=== PATIENT | female | born 1950 | race Caucasian/White ===

== ENCOUNTER → 2017-02-10 | Outpatient (CLI) | payer MEDICARE, OTHER ==
--- NOTE | 2017-02-10 16:59 | BD ---
EXAMINATION TYPE: MG DEXA axial skeleton. DATE OF EXAM: 02/10/2017 11:12 AM COMPARISON: NONE CLINICAL HISTORY: 66-year-old female C50.411 BREAST CANCER, M85.8 OSTEOPENIA Height: 63.5 Weight: 154 FRAX RISK QUESTIONS: Alcohol (3 or more units per day): NO Family History (Parent hip fracture): YES Glucocorticoids (More than 3mos): NO (Ex: prednisone, prednisolone, methylprednisolone, dexamethasone, and hydrocortisone). History of Fracture in Adulthood: NO Secondary Osteoporosis: YES 1. Type 1 Diabetes: YES 2. Hyperthyroidism: NO 3. Menopause before 45: NO 4. Malnutrition: NO 5. Chronic liver disease: NO Rheumatoid Arthritis: NO Current Tobacco Use: NO RISK FACTORS HISTORY OF: Family History of Osteoporosis: YES, HER AUNT, GRANDMOTHER WITH BROKEN HIP Active: YES Diet low in dairy products/other sources of calcium: YES, LACTOSE INTOLERANT Postmenopausal woman: OVARIAN CA AT 55 YRS OLD, TOTAL HYST Lost more than 2 inches in height since high school: NOT QUITE Adrenal Insufficiency: NO MEDICATIONS: Additional Medications: FEMARA, DIABETIC DIET CONTROLLED, CHEMO TREATMENT X2, VIT D3, RANTIDINE FOR R EFLUX Additional History: HX OF BREAST CANCER, OVARIAN CANCER, HEP A A CHILD, HX OF OSTEOMYELITIS, + FOR THE BRCA GENE EXAM MEASUREMENTS: Bone mineral densitometry was performed using the [employer] System. Bone mineral density as measured about the Lumbar spine is: ----- L1-L4(G/cm2): 1.242 T Score Values are as follows: ----- L1: 0.1 ----- L2: -0.3 ----- L3: 1.7 ----- L4: 0.4 ----- L1-L4: 0.5 Bone mineral density THIS IS HER FIRST BONE DENSITY STUDY AT [facility] Bone mineral density about the R hip (g/cm2): 0.894 Bone mineral density about the L hip (g/cm2): 0.876 T Score values are as follows: -----R Neck: -1.6 -----L Neck: -1.6 -----R Total: -0.9 -----L Total: -1.0 Bone mineral density FIRST BONE DENSITY STUDY AT [facility] %'S: 17.8% CHANCE OF A MAJOR OSTEOPOROTIC FX AND A 1.2% CHANCE OF A HIP FX.....PROBABILITY OF FX IN 10 YRS TIME IMPRESSION: Osteopenia as indicated by T score values in both hips. There is slightly increased risk of fracture and the patient may be considered for treatment. Re-Screen 2-5 years. NOTE: T-SCORE=SD OF THE YOUNG ADULT MEAN.
== END | disposition home or self-care (01) ==
LOC: RADBDWWP 10:23
PROVIDERS: ATTEND Internal Medicine Hematology & Oncology
DX: M85.852 Other specified disorders of bone density and structure, left thigh (principal); M85.851 Other specified disorders of bone density and structure, right thigh; Z79.890 Hormone replacement therapy
CPT/HCPCS: 77080

== ENCOUNTER 2017-05-09 12:27 | Emergency (ER) | payer MEDICARE, OTHER ==
[2017-05-09 12:33] VITALS: RESP 18
[2017-05-09] MEDS ORDERED: LORazepam 1 MG TAB PO STA (13:50)
[2017-05-09 14:04] LABS: Basophils % (A) 0 %; CH 32.7; CHCM 34.9; Eosinophils # (A) 0.1 k/uL (0-0.7); Eosinophils % (A) 1 %; HCT 45.6 % (34.0-46.0); HDW 2.49; Luc # (Auto) 0.11; Luc % (Auto) 1; Lymphocytes # (A) 1.3 k/uL (1.0-4.8); Lymphocytes % (A) 15 %; MCHC 32.9 g/dL (31.0-37.0); MCV 94.2 fL (80.0-100.0); Mean Platelet Volume 7.2; Monocytes # (A) 0.3 k/uL (0-1.0); Monocytes % (A) 4 %; Neutrophils # (A) 6.4 k/uL (1.3-7.7); Neutrophils % (A) 78 %; RBC 4.84 m/uL (3.80-5.40); WBC 8.2 k/uL (3.8-10.6); WBC (Perox) 7.79
--- NOTE | 2017-05-09 14:04 | ED ---
General Adult HPI - General Chief complaint: Recheck/Abnormal Lab/Rx Stated complaint: High Blood Pressure Time Seen by Provider: 05/09/17 12:56 Source: patient, RN notes reviewed Mode of arrival: ambulatory Limitations: no limitations - History of Present Illness Initial comments: 66-year-old female presents emergency Department with chief complaint of hypertension. Patient states that last few days that she just fell off and states that she was at physical therapy and he checks her blood pressure. She states it was elevated 180/100. Patient call her PCP and told her. Patient states she was advised to recheck her blood pressure and keep a log and she called back today and which was still elevated so she was sent emergency department. She denies any headache, dizziness, focal weakness, chest pain, shortness breath, nausea vomiting. She states she was washing her car the other day and states that she her face was red and flushed so she figured it was her blood pressure. Patient states that she was outside wash her car ago for a while. Patient states that she's been blood pressure medication but states she was taken off because it was causing her blood pressure me to open. Patient states he has not had a recent visit that they told her that she needs to be on blood pressure medication though she states that she does not exactly know what her blood pressure was at these visits. Patient states that she has a history of ovarian and breast cancer. Patient denies any fever, chills nausea vomiting. - Related Data Home Medications Medication Instructions Recorded Confirmed Baclofen [Lioresal] 10 mg PO BID PRN 05/09/17 05/09/17 Cholecalciferol [Vitamin D3] 1,000 unit PO BID 05/09/17 05/09/17 Ibuprofen [Motrin] 800 mg PO TID PRN 05/09/17 05/09/17 Letrozole [Femara] 2.5 mg PO DAILY 05/09/17 05/09/17 Ranitidine HCl [Zantac] 300 mg PO HS 05/09/17 05/09/17 Previous Rx's Medication Instructions Recorded Lisinopril [Zestril] 10 mg PO DAILY #14 tab 05/09/17 Allergies Allergy/AdvReac Type Severity Reaction Status Date / Time duloxetine [From Cymbalta] Allergy Unknown Verified 05/09/17 13:02 pregabalin [From Lyrica] Allergy Unknown Verified 05/09/17 13:01 orange juice AdvReac Nausea & Verified 05/09/17 13:02 Vomiting & Diarrhea Whole Milk AdvReac Nausea & Uncoded 05/09/17 13:02 Vomiting & Diarrhea Review of Systems ROS Statement: Those systems with pertinent positive or pertinent negative responses have been documented in the HPI. ROS Other: All systems not noted in ROS Statement are negative. Past Medical History Past Medical History: Cancer, Hypertension Additional Past Medical History / Comment(s): hepatitis History of Any Multi-Drug Resistant Organisms: None Reported Past Surgical History: Tonsillectomy Additional Past Surgical History / Comment(s): ovarian cancer, breast cancer Past Psychological History: No Psychological Hx Reported Smoking Status: Never smoker Past Alcohol Use History: None Reported Past Drug Use History: None Reported General Exam Limitations: no limitations General appearance: alert, in no apparent distress, anxious Head exam: Present: atraumatic, normocephalic, normal inspection Eye exam: Present: normal appearance, PERRL, EOMI. Absent: scleral icterus, conjunctival injection, periorbital swelling ENT exam: Present: normal exam, normal oropharynx, mucous membranes moist Neck exam: Present: normal inspection, full ROM. Absent: tenderness, meningismus, lymphadenopathy Respiratory exam: Present: normal lung sounds bilaterally. Absent: respiratory distress, wheezes, rales, rhonchi, stridor Cardiovascular Exam: Present: normal rhythm, tachycardia, normal heart sounds. Absent: systolic murmur, diastolic murmur, rubs, gallop, clicks Neurological exam: Present: alert, oriented X3, CN II-XII intact Psychiatric exam: Present: anxious Skin exam: Present: warm, dry, intact, normal color. Absent: rash Course Vital Signs 05/09/17 05/09/17 05/09/17 12:30 13:50 14:32 Temperature 98.9 F Pulse Rate 122 H 98 98 Respiratory 18 18 18 Rate Blood Pressure 199/101 202/87 169/81 O2 Sat by Pulse 99 96 98 Oximetry EKG Findings - EKG Comments: EKG Findings:: EKG performed at 13:30 normal sinus rhythm with a rate of 97 WI interval 162 QRS duration 86 QT/QTC 360/457 Medical Decision Making - Medical Decision Making 66-year-old female presented for hypertension. Patient is very anxious patient. Patient's lab work and EKG within normal limits. Patient was given 0.5 mg of Ativan which improved her blood pressure. Patient still has some underlying hypertension which she'll be started on lisinopril 10 mg. Return parameters were discussed. She is advised to follow with PCP in 2 days and to check her blood pressure at home. - Lab Data Result diagrams: 05/09/17 13:45 05/09/17 13:45 Lab Results 05/09/17 05/09/17 05/09/17 Range/Units 13:45 13:45 13:45 WBC 8.2 (3.8-10.6) k/uL RBC 4.84 (3.80-5.40) m/uL Hgb 15.0 (11.4-16.0) gm/dL Hct 45.6 (34.0-46.0) % MCV 94.2 (80.0-100.0) fL MCH 31.0 (25.0-35.0) pg MCHC 32.9 (31.0-37.0) g/dL RDW 13.0 (11.5-15.5) % Plt Count 288 (150-450) k/uL Neutrophils % 78 % Lymphocytes % 15 % Monocytes % 4 % Eosinophils % 1 % Basophils % 0 % Neutrophils # 6.4 (1.3-7.7) k/uL Lymphocytes # 1.3 (1.0-4.8) k/uL Monocytes # 0.3 (0-1.0) k/uL Eosinophils # 0.1 (0-0.7) k/uL Basophils # 0.0 (0-0.2) k/uL Sodium 144 (137-145) mmol/L Potassium 4.1 (3.5-5.1) mmol/L Chloride 105 (98-107) mmol/L Carbon Dioxide 27 (22-30) mmol/L Anion Gap 12 mmol/L BUN 15 (7-17) mg/dL Creatinine 0.57 (0.52-1.04) mg/dL Est GFR (MDRD) Af Amer >60 (>60 ml/min/1.73 sqM) Est GFR (MDRD) Non-Af >60 (>60 ml/min/1.73 sqM) Glucose 96 (74-99) mg/dL Calcium 10.0 (8.4-10.2) mg/dL Total Bilirubin 0.7 (0.2-1.3) mg/dL AST 30 (14-36) U/L ALT 32 (9-52) U/L Alkaline Phosphatase 100 (38-126) U/L Troponin I <0.012 (0.000-0.034) ng/mL Total Protein 7.9 (6.3-8.2) g/dL Albumin 4.8 (3.5-5.0) g/dL Disposition Clinical Impression: Hypertension Disposition: HOME SELF-CARE Condition: Stable Instructions: Hypertension (ED) Additional Instructions: Please return to the Emergency Department if symptoms worsen or any other concerns. Prescriptions: Lisinopril [Zestril] 10 mg PO DAILY #14 tab Referrals: Ayaka Friedman MD [Primary Care Provider] - 1-2 days Time of Disposition: 15:18
[2017-05-09 14:14] LABS: ALT 32 U/L (9-52); AST 30 U/L (14-36); Alkaline Phosphatase 100 U/L (38-126); Anion Gap 12 mmol/L; Blood Urea Nitrogen 15 mg/dL (7-17); Carbon Dioxide 27 mmol/L (22-30); Chloride 105 mmol/L (98-107); Glucose 96 mg/dL (74-99); Non-African American GFR(MDRD) >60 (>60 ml/min/1.73 sqM); Potassium 4.1 mmol/L (3.5-5.1); Sodium 144 mmol/L (137-145); Total Bilirubin 0.7 mg/dL (0.2-1.3); Total Protein 7.9 g/dL (6.3-8.2)
[2017-05-09 15:49] VITALS: BP 145/71; PULSE 94; TEMP 98.7
== END 2017-05-09 15:49 | disposition home or self-care (01) ==
LOC: EC 12:27
DX: I10 Essential (primary) hypertension (principal); Z85.43 Personal history of malignant neoplasm of ovary; Z85.3 Personal history of malignant neoplasm of breast; Z79.899 Other long term (current) drug therapy; Z91.018 Allergy to other foods; Z88.8 Allergy status to other drugs, medicaments and biological substances
CPT/HCPCS: 36415; 80053; 84484; 85025; 93005; 99283

== ENCOUNTER 2017-11-10 08:49 | Day surgery (SDC) | payer MEDICARE, OTHER ==
[2017-11-08 11:32] VITALS: BMI 26.3
[~2017-11-10 08:49] MED LIST: LACTATED RINGERS 1,000 ML IV SCH
[2017-11-10 09:23] VITALS: RESP 16; TEMP 97.6
[2017-11-10 09:34] LABS: Glucose,Whole Blood 93 mg/dL (75-99)
[2017-11-10] MEDS ORDERED: PROPOFOL 10 MG/ML 20 ML VIAL IV ONE (09:53)
--- NOTE | 2017-11-10 09:57 | P.GSHP ---
History of Present Illness H&P Date: 11/10/17 Chief Complaint: Colon cancer screening Patient here today for screening colonoscopy. Last colonoscopy 12 years ago. No bowel related complaints. No family history of colon cancer. Past Medical History Past Medical History: Cancer, Diabetes Mellitus, GERD/Reflux, Hypertension, Liver Disease Additional Past Medical History / Comment(s): past hx. hepatitis A as a baby, hx. right breast cancer 2009, ovarian cancer 2006-tx. w/chemo for both, diet controlled diabetic, peripheral neuropathy History of Any Multi-Drug Resistant Organisms: None Reported Past Surgical History: Breast Surgery, Hysterectomy, Tonsillectomy Additional Past Surgical History / Comment(s): americo. mastectomy, partial omentectomy, mediport insertion Past Anesthesia/Blood Transfusion Reactions: No Reported Reaction Smoking Status: Never smoker - Past Family History Sister(s) Family Medical History: Cancer Additional Family Medical History / Comment(s): breast Mother Family Medical History: Deep Vein Thrombosis (DVT) Medications and Allergies Home Medications Medication Instructions Recorded Confirmed Type Baclofen [Lioresal] 10 mg PO BID PRN 05/09/17 11/08/17 History Cholecalciferol [Vitamin D3] 1,000 unit PO BID 05/09/17 11/08/17 History Ibuprofen [Motrin] 800 mg PO TID PRN 05/09/17 11/08/17 History Letrozole [Femara] 2.5 mg PO DAILY 05/09/17 11/08/17 History Ranitidine HCl [Zantac] 300 mg PO HS 05/09/17 11/08/17 History Lisinopril [Zestril] 10 mg PO HS 11/08/17 11/08/17 History Allergies Allergy/AdvReac Type Severity Reaction Status Date / Time duloxetine [From Cymbalta] Allergy Unknown Verified 11/10/17 09:28 pregabalin [From Lyrica] Allergy Unknown Verified 11/10/17 09:28 orange juice AdvReac Nausea & Verified 11/10/17 09:28 Vomiting & Diarrhea Whole Milk AdvReac Nausea & Uncoded 11/10/17 09:28 Vomiting & Diarrhea Surgical - Exam Vital Signs Temp Pulse Resp BP Pulse Ox 97.6 F 110 H 16 171/81 98 11/10/17 09:21 11/10/17 09:21 11/10/17 09:21 11/10/17 09:21 11/10/17 09:21 Physical exam: General: Well-developed, well-nourished HEENT: Normocephalic, sclerae nonicteric Abdomen: Nontender, nondistended Extremities: No edema Neuro: Alert and oriented Assessment and Plan (1) Colon cancer screening Narrative/Plan: Will proceed with colonoscopy at this time. Current Visit: Yes Status: Acute Code(s): Z12.11 - ENCOUNTER FOR SCREENING FOR MALIGNANT NEOPLASM OF COLON SNOMED Code(s): 694219768
--- NOTE | 2017-11-10 10:08 | P.PCN ---
Date of Procedure: 11/10/17 Procedure(s) Performed: PREOPERATIVE DIAGNOSIS: Colon cancer screening POSTOPERATIVE DIAGNOSIS: Normal exam PROCEDURE: Colonoscopy ANESTHESIA: MAC SURGEON: Azael Daly M.D. SPECIMENS: None ENDOSCOPIC PROCEDURE: The patient was placed on the endoscopy table in the left decubitus position. The Olympus colonoscope was inserted into the anus and passed under direct visualization to the base of the cecum. The appendiceal orifice was visualized. From that point the scope was slowly withdrawn inspecting all surfaces carefully. There were no neoplastic inflammatory or polypoid lesions throughout the cecum, ascending, transverse, descending, sigmoid and rectum. There was no diverticulosis noted. Digital rectal examination was normal. The patient was taken to the recovery room in stable condition per anesthesia guidelines. RECOMMENDATIONS: Increase fiber. Follow-up colonoscopy 10 years.
[2017-11-10 10:32] VITALS: BP 119/67; PULSE 88
--- NOTE | 2017-11-15 17:22 | CDI ---
Outpatient Documentation Clarification Form Date: 11/15/17 CDS/Culinary Arts Teacher Name: Denise Simmons Phone: If any questions, call Katarina Whitman Domestic Cleaner at [phone] Patient Name: Kim Bella Admit Date: 11/10/17 Discharge Date: 11/10/17 ATTENTION: The [facility] Coding Staff appreciate your assistance in clarifying documentation. Please respond to the clarification below the line at the bottom and electronically sign. The [facility] Coding staff will review the response and follow-up if needed. Please note: Queries are made part of the Legal Health Record. If you have any questions, please contact the Domestic Cleaner. Dear Dr. Daly Does the patient currently have chemotherapy induced neuropathy or is it only a history of? Thank you for your kind consideration. I have no knowledge of this patient's neuropathy. Please defer to oncology ____ MTDD
--- NOTE | 2017-12-01 16:10 | CDI ---
Outpatient Documentation Clarification Form Date: 12/01/17 CDS/Clinical Sales Consultant Name: Denise Simmons Phone: If any questions, call Katarina Whitman Online Media Director at [phone] Patient Name: Kim Bella Admit Date: 11/10/17 Discharge Date: 11/10/17 ATTENTION: The [facility] Coding Staff appreciate your assistance in clarifying documentation. Please respond to the clarification below the line at the bottom and electronically sign. The [facility] Coding staff will review the response and follow-up if needed. Please note: Queries are made part of the Legal Health Record. If you have any questions, please contact the Online Media Director. Dear Dr. Daly Does the patient currently have chemotherapy induced neuropathy or is it only a history of? Thank you for your kind consideration. MTDD
--- NOTE | 2017-12-05 14:11 | CDI ---
Documentation Clarification OP Outpatient Documentation Clarification Form Date: 12/05/17 CDS/Inspector Quality Assurance Name: Denise Simmons Phone: If any questions, call Katarina Whitman Social Media Project Manager at [phone] Patient Name: Kim Bella Admit Date: 11/10/17 Discharge Date: 11/10/17 ATTENTION: The [facility] Coding Staff appreciate your assistance in clarifying documentation. Please respond to the clarification below the line at the bottom and electronically sign. The [facility] Coding staff will review the response and follow-up if needed. Please note: Queries are made part of the Legal Health Record. If you have any questions, please contact the Social Media Project Manager. Dear Dr. Daly Does the patient currently have chemotherapy induced neuropathy or is it only a history of? Thank you for your kind consideration. Do not know the answer that question. Please defer to medicine or oncology. MTDD
== END 2017-11-10 11:24 | disposition home or self-care (01) ==
LOC: ORWHC2ENDO 08:49
PROVIDERS: ATTEND Surgery
DX: Z12.11 Encounter for screening for malignant neoplasm of colon (principal); K21.9 Gastro-esophageal reflux disease without esophagitis; I10 Essential (primary) hypertension; E07.9 Disorder of thyroid, unspecified; E11.42 Type 2 diabetes mellitus with diabetic polyneuropathy; Z85.3 Personal history of malignant neoplasm of breast; Z85.43 Personal history of malignant neoplasm of ovary; Z92.21 Personal history of antineoplastic chemotherapy; Z90.13 Acquired absence of bilateral breasts and nipples; Z79.899 Other long term (current) drug therapy; Z88.8 Allergy status to other drugs, medicaments and biological substances
CPT/HCPCS: J2704; G0121

== ENCOUNTER → 2019-04-05 | Outpatient (CLI) | payer MEDICARE, OTHER ==
--- NOTE | 2019-04-05 14:30 | BD ---
EXAMINATION TYPE: Axial Bone Density DATE OF EXAM: 04/05/2019 COMPARISON: NONE CLINICAL HISTORY: Postmenopausal symptoms, postmenopausal female Height: 5 FT 3 IN Weight: 159 FRAX RISK QUESTIONS: RISK FACTORS HISTORY OF: Family History of Osteoporosis: YES Active: YES Postmenopausal woman: TOTAL HYST AGE 55 Lost more than 2 inches in height since high school: YES MEDICATIONS: Additional Medications: FEMARA, D3, IBUPROFEN, BLOOD PRESSURE MEDS, NEUOPATHY MEDS, RANTIDINE FOR REF LUX Additional History: BREAST CA 2009 CHEMO, OVARIAN CANCER AGE 55 CHEMO EXAM MEASUREMENTS: Bone mineral densitometry was performed using the [employer] System. Bone mineral density as measured about the Lumbar spine is: ----- L1-L4(G/cm2): 1.275 T Score Values are as follows: ----- L2: 0.2 ----- L3: 1.4 ----- L4: 1.3 ----- L1-L4: 0.8 Bone mineral density has: INCREASED 3.8 % since study of: 2016 Bone mineral density about the R hip (g/cm2): 0.804 Bone mineral density about the L hip (g/cm2): 0.769 T Score values are as follows: -----R Neck: -1.7 -----L Neck: -1.9 -----R Total: -0.9 -----L Total: -1.2 Bone mineral density has: DECREASED -1.4 % since study of: 2016 IMPRESSION: Osteopenia (T Score between -2.5 and -1). There is slightly increased risk of fracture and the patient may be considered for treatment. Re-Screen 2-5 years. NOTE: T-SCORE=SD OF THE YOUNG ADULT MEAN.
== END ==
LOC: RADBDWWP 12:01
PROVIDERS: ATTEND Internal Medicine Hematology & Oncology
DX: M85.80 Other specified disorders of bone density and structure, unspecified site (principal); C50.411 Malignant neoplasm of upper-outer quadrant of right female breast; N95.1 Menopausal and female climacteric states; Z79.890 Hormone replacement therapy
CPT/HCPCS: 77080

== ENCOUNTER 2019-07-18 20:34 | Observation (INO) | payer MEDICARE, OTHER ==
--- NOTE | 2019-07-18 21:33 | ED ---
General Adult HPI - General Chief complaint: Recheck/Abnormal Lab/Rx Stated complaint: Tightness in throat Time Seen by Provider: 07/18/19 21:08 Source: patient Mode of arrival: EMS Limitations: no limitations - History of Present Illness Initial comments: Kim is a 68-year-old female who presents to the emergency department today as a transfer from an outside facility for evaluation of a possible TIA. 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 She reports that she was told that she looked sweaty and pale she felt that her throat was tightening and she was having trouble swallowing. She was taken to the nursing office in the transferred her to the hospital where she was evaluated for a TIA. Patient reports upon arrival possible she is hypertensive but had no other symptoms. Her head CT CTA chest x-ray, EKG and labs were unremarkable. However given the patient's symptoms and age decision was made to transfer her to our facility for further evaluation by neurology. Upon arrival to our hospital patient has no complaints. - Related Data Home Medications Medication Instructions Recorded Confirmed Baclofen [Lioresal] 10 mg PO BID 05/09/17 07/18/19 Cholecalciferol [Vitamin D3] 1,000 unit PO BID 05/09/17 07/18/19 Ibuprofen [Motrin] 800 mg PO BID 05/09/17 07/18/19 Letrozole [Femara] 2.5 mg PO HS 05/09/17 07/18/19 Ranitidine HCl [Zantac] 300 mg PO HS 05/09/17 07/18/19 Lisinopril [Zestril] 10 mg PO HS 11/08/17 07/18/19 Allergies Allergy/AdvReac Type Severity Reaction Status Date / Time duloxetine [From Cymbalta] Allergy Unknown Verified 07/18/19 21:14 pregabalin [From Lyrica] Allergy Unknown Verified 07/18/19 21:14 orange juice AdvReac Nausea & Verified 07/18/19 21:14 Vomiting & Diarrhea Whole Milk AdvReac Nausea & Uncoded 07/18/19 21:14 Vomiting & Diarrhea Review of Systems ROS Statement: Those systems with pertinent positive or pertinent negative responses have been documented in the HPI. ROS Other: All systems not noted in ROS Statement are negative. Past Medical History Past Medical History: Cancer, Diabetes Mellitus, GERD/Reflux, Hypertension, Liver Disease Additional Past Medical History / Comment(s): past hx. hepatitis A as a baby, hx. right breast cancer 2010, ovarian cancer 2006-tx. w/chemo for both, diet controlled diabetic, peripheral neuropathy History of Any Multi-Drug Resistant Organisms: None Reported Past Surgical History: Breast Surgery, Hysterectomy, Tonsillectomy Additional Past Surgical History / Comment(s): americo. mastectomy, partial omentectomy, mediport insertion Past Anesthesia/Blood Transfusion Reactions: No Reported Reaction Past Psychological History: No Psychological Hx Reported Smoking Status: Never smoker Past Alcohol Use History: None Reported Past Drug Use History: None Reported - Past Family History Sister(s) Family Medical History: Cancer Additional Family Medical History / Comment(s): breast Mother Family Medical History: Deep Vein Thrombosis (DVT) General Exam - General Exam Comments Initial Comments: Physical Exam GENERAL: Patient is well-developed and well-nourished. Patient is nontoxic and well- hydrated and is in no distress. HENT: Normocephalic, Atraumatic. EYES: PERRL, EOMI PULMONARY: Unlabored respirations. No audible rales rhonchi or wheezing was noted. CARDIOVASCULAR: There is a regular rate and rhythm without any murmurs gallops or rubs. ABDOMEN: Soft and nontender with normal bowel sounds. SKIN: Skin is clear with no lesions or rashes and otherwise unremarkable. : Deferred NEUROLOGIC: Patient is alert and oriented x3. Cranial nerves II through XII are grossly intact Moving all extremities spontaneously MUSCULOSKELETAL: Normal extremities with adequate strength and full range of motion. No lower extremity swelling or edema. No calf tenderness. PSYCHIATRIC: Normal psychiatric evaluation. Limitations: no limitations Course Vital Signs 07/18/19 20:36 Temperature 98.5 F Pulse Rate 91 Respiratory 18 Rate Blood Pressure 158/89 O2 Sat by Pulse 96 Oximetry Medical Decision Making - Medical Decision Making Patient was seen and evaluated history is obtained from patient and review of medical records from outside facility, upon arrival patient is completely asymptomatic hemodynamically stable with no complaints. Patient expresses concern that she is not a candidate for inpatient MRI as she is too claustrophobic to complete an MRI, therefore she would prefer open MRI which she can get her outpatient neurology office. I did offer the patient discharged from ER in outpatient follow-up however she preferred to be observed here evaluated by neurology. This plan was discussed with the admitting physician Dr. Nelson who agrees. Disposition Clinical Impression: TIA (transient ischemic attack) Disposition: ADMITTED IP TO THIS HOSP Condition: Stable Is patient prescribed a controlled substance at d/c from ED?: No Referrals: Ayaka Friedman MD [Primary Care Provider] - 1-2 days
[2019-07-19 01:26] LABS: Glucose,Whole Blood 98 mg/dL (75-99)
[2019-07-19 05:56] VITALS: RESP 16
[2019-07-19 06:17] LABS: Glucose,Whole Blood 94 mg/dL (75-99)
[2019-07-19] MEDS: INSULIN ASPART (NovoLOG) 100 UNIT/ML VIAL SQ SCH ×2 (06:23→12:27)
[2019-07-19 06:52] LABS: Cholesterol 167 mg/dL (<200); HDL Cholesterol 43 mg/dL (40-60); LDL Cholesterol,Calculated 101 mg/dL (0-99); Triglycerides 115 mg/dL (<150)
[2019-07-19] MEDS ORDERED: ACETAMINOPHEN TAB 325 MG TAB PO PRN (08:13)
[2019-07-19] MEDS ORDERED: ONDANSETRON 4 MG/2 ML VIAL IVP PRN (08:13)
[2019-07-19] MEDS ORDERED: CHOLECALCIFEROL 1,000 UNIT TAB PO SCH (09:00)
[2019-07-19] MEDS ORDERED: BACLOFEN 10 MG TAB PO SCH (09:00)
--- NOTE | 2019-07-19 10:00 | P.HPIM ---
History of Present Illness H&P Date: 07/19/19 This is a 68-year-old female patient of Dr. michael. Patient was transferred to [facility] from [facility] with concerns for possible TIA. 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 Patient also reports that she was hypertensive. Patient denies any confusion or trouble with gait. Patient denies any weakness to any extremities. Patient does have a past medical history of breast cancer, ovarian cancer, diabetes mellitus diet controlled, peripheral neuropathy, GERD, hypertension and liver disease. Patient had CT of the head completed at [facility] showing no acute intracranial hemorrhage or midline shift shift mild diffuse age-related cerebral atrophy and chronic small vessel ischemic changes. Chest x-ray also completed [facility] struggling chronic changes without acute pulmonary process EKG completed showing sinus rhythm. Neurology services have been consulted. Carotid and 2-D echo has been ordered. At this time patient is asymptomatic. Patient has clear speech. No weakness noted to extremities. Patient denies chest pain or shortness breath. Patient denies nausea vomiting or diarrhea. Patient denies any urinary burning or frequency. Review of Systems Please refer to HPI otherwise unremarkable Past Medical History Past Medical History: Cancer, Diabetes Mellitus, GERD/Reflux, Hypertension, Liver Disease Additional Past Medical History / Comment(s): past hx. hepatitis A as a baby, hx. right breast cancer 2009, ovarian cancer 2006-tx. w/chemo for both, diet controlled diabetic, peripheral neuropathy History of Any Multi-Drug Resistant Organisms: None Reported Past Surgical History: Breast Surgery, Hysterectomy, Tonsillectomy Additional Past Surgical History / Comment(s): americo. mastectomy, partial omentectomy, mediport insertion Past Anesthesia/Blood Transfusion Reactions: No Reported Reaction Past Psychological History: No Psychological Hx Reported Smoking Status: Never smoker Past Alcohol Use History: None Reported Past Drug Use History: None Reported - Past Family History Sister(s) Family Medical History: Cancer Additional Family Medical History / Comment(s): breast Mother Family Medical History: Deep Vein Thrombosis (DVT) Medications and Allergies Home Medications Medication Instructions Recorded Confirmed Type Baclofen [Lioresal] 10 mg PO BID 05/09/17 07/18/19 History Cholecalciferol [Vitamin D3] 1,000 unit PO BID 05/09/17 07/18/19 History Ibuprofen [Motrin] 800 mg PO BID 05/09/17 07/18/19 History Letrozole [Femara] 2.5 mg PO HS 05/09/17 07/18/19 History Ranitidine HCl [Zantac] 300 mg PO HS 05/09/17 07/18/19 History Lisinopril [Zestril] 10 mg PO HS 11/08/17 07/18/19 History Allergies Allergy/AdvReac Type Severity Reaction Status Date / Time duloxetine [From Cymbalta] Allergy Unknown Verified 07/19/19 01:42 pregabalin [From Lyrica] Allergy Unknown Verified 07/19/19 01:42 orange juice AdvReac Nausea & Verified 07/19/19 01:42 Vomiting & Diarrhea Whole Milk AdvReac Nausea & Uncoded 07/18/19 21:14 Vomiting & Diarrhea Physical Exam Vitals: Vital Signs Temp Pulse Pulse Resp BP BP Pulse Ox 07/19/19 04:00 98.2 F 87 16 151/76 98 07/19/19 01:05 97.3 F L 83 17 139/72 99 07/19/19 00:30 84 17 134/64 98 07/19/19 00:05 98.1 F 75 18 149/79 98 07/18/19 23:00 79 18 145/66 97 07/18/19 22:00 98.2 F 86 18 156/72 94 L 07/18/19 20:36 98.5 F 91 18 158/89 96 Intake and Output 07/18/19 07/19/19 07/19/19 22:59 06:59 14:59 Other: Voiding Method Toilet Weight 74.843 kg 74.6 kg Head normocephalic Neck supple Lungs clear to auscultation bilaterally no wheezing or crackles Heart regular rate and rhythm S1-S2, no rub or gallop Abdomen is soft nontender nondistended positive bowel sounds no hepatosplenomegaly Extremities no edema Neuro alert and orientated to 3 Results Labs: Abnormal Lab Results - Last 24 Hours (Table) 07/19/19 Range/Units 06:02 LDL Cholesterol, Calc 101 H (0-99) mg/dL Thrombosis Risk Factor Assmnt - Choose All That Apply Any of the Below Risk Factors Present?: Yes Each Factor Represents 1 point: Obesity (BMI >25) Other Risk Factors: Yes Each Risk Factor Represents 2 Points: Age 61-74 years Thrombosis Risk Factor Assessment Total Risk Factor Score: 3 Thrombosis Risk Factor Assessment Level: Moderate Risk Assessment and Plan Assessment: 1. Possible TIA. CT of head completed at [facility] showing no acute intracranial hemorrhage or midline shift mild diffuse age-related cerebral atrophy and chronic small vessel ischemic changes. Neurology services have been consulted. Carotid and 2-D Doppler has been completed. PT OT consult placed 2. History of breast cancer in 2009 with chemo and bilateral mastectomy 3. History of ovarian cancer in 2005 with chemo 4. Diabetes mellitus. Diet controlled 5. History of GERD 6. History of liver disease DVT prophylaxis heparin. GI prophylaxis Pepcid Time with Patient: Greater than 30 (Greater than 60% of the total time spent in counseling and coordination of care. I performed an examination of the patient and discussed their management with the Nurse Practitioner. I have reviewed the Nurse Practitioner's notes and agree with the documented findings and plan of care)
--- NOTE | 2019-07-19 10:26 | US ---
EXAMINATION TYPE: US carotid duplex BILAT DATE OF EXAM: 07/19/2019 COMPARISON: NONE CLINICAL HISTORY: TIA. EXAM MEASUREMENTS: RIGHT: Peak Systolic Velocity (PSV) cm/sec ----- Right CCA: 91.5 ----- Right ICA: 116.1 ----- Right ECA: 189.3 ICA/CCA ratio: 1.3 RIGHT: End Diastole cm/sec ----- Right CCA: 21.7 ----- Right ICA: 35.4 ----- Right ECA: 10.9 LEFT: Peak Systolic Velocity (PSV) cm/sec ----- Left CCA: 87.1 ----- Left ICA: 93.1 ----- Left ECA: 129.9 ICA/CCA ratio: 1.1 LEFT: End Diastole cm/sec ----- Left CCA: 25.7 ----- Left ICA: 33.5 ----- Left ECA: 13.6 VERTEBRALS (direction of flow): Right Vertebral: Antegrade Left Vertebral: Antegrade Rhythm: Normal Very small amount of calcified plaque bilateral bulbs. IMPRESSION: Mild degree of grayscale atheromatous plaquing with no sonographically evident hemodynam ically significant stenosis within either visualized carotid arterial system. Criteria for Assigning % of Stenosis / Diameter reduction (Estimation based on the indirect measurements of the internal carotid artery velocities (ICA PSV). 1. Normal (no stenosis)=ICA PSV < 125 cm/s: ratio < 2.0: ICA EDV<40 cm/s. 2. Less than 50% stenosis=ICA PSV < 125 cm/s: ratio < 2.0: ICA EDV<40 cm/s. 3. 50 to 69% stenosis=ICA PSV of 125 to 230 cm/s: ration 2.0 ? 4.0: ICA EDV 40-100 cm/s. 4. Greater than 70% stenosis to near occlusion= ICA PSV > 230 cm/s: ratio > 4.0: ICA EDV > 100 cm/s. 5. Near occlusion= ICA PSV velocities may be low or undetectable: variable ratio and ICA EDV. 6. Total occlusion=unable to detect flow.
[2019-07-19 10:45] LABS: ALT 35 U/L (9-52); AST 29 U/L (14-36); African American GFR (CKD) >90 (>60 ml/min/1.73 sqM); Albumin 3.9 g/dL (3.5-5.0); Alkaline Phosphatase 84 U/L (38-126); Anion Gap 9 mmol/L; Blood Urea Nitrogen 17 mg/dL (7-17); Calcium 9.6 mg/dL (8.4-10.2); Carbon Dioxide 24 mmol/L (22-30); Chloride 110 mmol/L (98-107); Glucose 95 mg/dL (74-99); Non-African American GFR(CKD) >90 (>60 ml/min/1.73 sqM); Potassium 3.8 mmol/L (3.5-5.1); Sodium 143 mmol/L (137-145); Total Bilirubin 0.3 mg/dL (0.2-1.3)
[2019-07-19 10:49] LABS: Basophils % (A) 1 %; Eosinophils # (A) 0.2 k/uL (0-0.7); Eosinophils % (A) 2 %; HGB 12.5 gm/dL (11.4-16.0); Lymphocytes # (A) 1.7 k/uL (1.0-4.8); Lymphocytes % (A) 22 %; MCHC 33.7 g/dL (31.0-37.0); MCV 94.9 fL (80.0-100.0); Mean Platelet Volume 7.1; Monocytes # (A) 0.5 k/uL (0-1.0); Monocytes % (A) 7 %; Neutrophils # (A) 5.3 k/uL (1.3-7.7); Neutrophils % (A) 67 %; Platelet Count 282 k/uL (150-450); WBC 7.8 k/uL (3.8-10.6)
--- NOTE | 2019-07-19 11:00 | ECHOF ---
Referral Reason:TIA MEASUREMENTS -------- HEIGHT: 160.0 cm WEIGHT: 74.4 kg BP: RVIDd: 2.7 cm (< 3.3) IVSd: 1.1 cm (0.6 - 1.1) LVIDd: 3.1 cm (3.9 - 5.3) LVPWd: 1.0 cm (0.6 - 1.1) IVSs: 1.8 cm LVIDs: 1.4 cm LVPWs: 1.5 cm LAESV Index (A-L): 16.95 ml/m Ao Diam: 2.6 cm (2.0 - 3.7) AV Cusp: 1.7 cm (1.5 - 2.6) LA Diam: 2.9 cm (2.7 - 3.8) MV EXCURSION: 10.087 mm (> 18.000) MV EF SLOPE: 85 mm/s (70 - 150) EPSS: 0.4 cm MV E Jose: 0.85 m/s MV DecT: 125 ms MV A Jose: 0.96 m/s MV E/A Ratio: 0.89 AR PHT: 354 ms RAP: 5.00 mmHg RVSP: 15.06 mmHg FINDINGS -------- Sinus rhythm. This was a technically good study. The left ventricular size is normal. Left ventricular wall thickness is normal. Overall left vent ricular systolic function is normal with, an EF between 55 - 60 %. The diastolic filling pattern is normal for the age of the patient 12.66. The right ventricle is normal in size. The left atrial size is normal. Normal LA size by volume 22+/-6 ml/m2. The right atrial size is normal. Interatrial and interventricular septum intact. The aortic valve is trileaflet and appears structurally normal. Trace amount of aortic regurgitatio n. The mitral valve is normal. The mitral valve leaflets are mildly thickened. Mild mitral regurgita tion is present. The tricuspid valve appears structurally normal. Mild tricuspid regurgitation present. Right vent ricular systolic pressure is normal at < 35 mmHg. There is no pulmonic regurgitation present. The aortic root size is normal. Normal inferior vena cava with normal inspiratory collapse consistent with estimated right atrial pre ssure of 5 mmHg. There is no pericardial effusion. CONCLUSIONS -------- 1. Sinus rhythm. 2. This was a technically good study. 3. The left ventricular size is normal. 4. Left ventricular wall thickness is normal. 5. Overall left ventricular systolic function is normal with, an EF between 55 - 60 %. 6. The diastolic filling pattern is normal for the age of the patient 12.66 7. The right ventricle is normal in size. 8. The left atrial size is normal. 9. Normal LA size by volume 22+/-6 ml/m2. 10. The right atrial size is normal. 11. Interatrial and interventricular septum intact. 12. The aortic valve is trileaflet and appears structurally normal. 13. Trace amount of aortic regurgitation. 14. The mitral valve is normal. 15. The mitral valve leaflets are mildly thickened. 16. Mild mitral regurgitation is present. 17. The tricuspid valve appears structurally normal. 18. Mild tricuspid regurgitation present. 19. Right ventricular systolic pressure is normal at < 35 mmHg. 20. There is no pulmonic regurgitation present. 21. The aortic root size is normal. 22. Normal inferior vena cava with normal inspiratory collapse consistent with estimated right atrial pressure of 5 mmHg. 23. There is no pericardial effusion. [employer] SAFETY INSPECTOR: Isadora Victoria RDCS
[2019-07-19 12:30] LABS: Glucose,Whole Blood 121 mg/dL (75-99)
--- NOTE | 2019-07-19 12:44 | P.CNNES ---
History of Present Illness Consult date: 07/19/19 Reason for Consult: Concern for TIA Chief complaint: Throat tightness History of Present Illness: HISTORY OF PRESENT ILLNESS: Thank you for allowing me to evaluate Mrs. Kim Bella. Ms. Bella is a 68-year-old woman with past medical history of breast cancer, ovarian cancer, diabetes, GERD, hypertension, peripheral neuropathy, who was transferred from also facility for possible workup of TIA. 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 She was wearing a turtle neck, and she thought it was causing her to feel pressed on her neck and feeling hot. She states that she was told that she looked sweaty and pale, and patient also felt that her throat was tightening and trouble swallowing. CT head and CTA was done at the outside hospital, which was unremarkable. Outside hospital imaging not available here at this time. Patient states that she is significantly claustrophic and cannot tolerate a closed MRI machine. Patient denies any dysphagia, dysarthria, word-finding difficulty, numbness/tingling, weakness, double/blurry vision, nausea/vomiting or headache. no recent sickness, No headache, CP, SOB, dysuria, diarrhea or constipation. PAST MEDICAL HISTORY: breast cancer, ovarian cancer, diabetes, GERD, hypertension, peripheral neuropathy PAST SURGICAL HISTORY: Bilateral mastectomy, partial omentectomy, hysterectomy, tonsillectomy HOME MEDICATIONS: Ibuprofen, letrozole, vitamin D, but dictating, baclofen, lisinopril ALLERGIES: Duloxetine, pregabalin, or excuse, whole milk SOCIAL HISTORY: Never smoker. FAMILY HISTORY: Sister with breast cancer. Mother with DVT RIEW OF SYSTEMS: The 14 systems are reviewed and no additional points are identified compared to the review of systems documented history and physical PHYSICAL EXAMINATION: VITAL SIGNS: T 98.2 HR 87 RR 16 BP 151/76 O2 sat 98% on RA GEN.: NAD, pleasant and cooperative HEENT: NCAT, sclera without icterus NECK: Supple SKIN AND EXTREMITIES: Warm to touch, no edema NEURO: MENTAL STATUS: Patient alert and oriented to self, place, time. Able to name the current president. Speech fluent, able to name and repeat, following all commands readily. No right and left disorientation, extinction to double simultaneous stimulation, finger agnosia, neglect. CRANIAL NERVES II THROUGH XII: II: Pupils are equal and reactive to light symmetrically. No afferent pupillary defect. Visual moya are intact. III, IV, : No ptosis. Extraocular movements full. No nystagmus. V: Facial sensation intact from V1-3. VII. No clear facial asymmetry. VIII: Hearing intact to finger rub bilaterally. IX, X: Symmetric palate elevation. XI: Shoulder shrug intact. XII: Tongue midline without fasciculation or atrophy. MOTOR: Normal bulk/tone. No pronator drift or tremor. Strength is 5/5 throughout all 4 extremities. SENSORY: Intact to light touch, temperature, pinprick in all 4 extremities. Romberg is negative. REFLEXES: 2+ throughout. Toes are downgoing. No clonus. Rhys's is absent COORDINATION: Finger to nose and heel to oreilly intact. No dysmetria. Rapid alternating movements with good speed and accuracy. GAIT: Narrow-based and stable. Able to toe/heel/tandem walk DIAGNOSTIC TESTING: LABORATORY: Total cholesterol 167 LDL 101 HDL 43 triglycerides 115 TSH 1.780 IMAGING: Carotid Doppler 07/19/2019: Mild degree of tovar scale atheromatous plaquing with no sonographically evident hemodynamic lesion of his stenosis within either visualized carotid arterial sys tem. Transthoracic echocardiogram 07/19/2019: Sinus rhythm. LV/RV/LA/RA sizes are normal. EF 55-60 % ASSESSMENT: 68-year-old woman with past medical history of breast cancer, ovarian cancer, diabetes, GERD, hypertension, peripheral neuropathy, who was transferred from also facility for possible workup of TIA. Patient's symptom of sudden hot flush with sweating and feeling of choking not very indicative of TIA or stroke. However, patient states that she's claustrophic and needs open MRI. TTE and Carotid Doppler unremarkable. Will start patient on medical management as patient with multiple risk factors such as cancer, DM and HTN. Patient has a neurology appt with Dr. Dimas next Monday for her peripheral neuropathy and back pain. RECOMMENDATIONS: 1. MRI brain without contrast as outpatient with an open MRI 2. ASA 81mg qday and Plavix 75mg qday (dual antiplatelet therapy for 3 weeks per POINT trial, then Aspirin 81mg qday only) 3. Atorvastatin 80mg qhs 4. PT/OT/ST per protocol 5. Discussed with patient about stroke prevention guidelines. Medication compliance, hypertension/diabetes control, lifestyle changes including no smoking, drinking in moderation, losing weight, exercising, eating healthier 6. Patient with follow up with Dr. Dimas on 07/23/19 7. Neurology will sign off at this time. Please feel free to contact Neurology again if with additional questions or concerns. Past Medical History Past Medical History: Cancer, Diabetes Mellitus, GERD/Reflux, Hypertension, Liver Disease Additional Past Medical History / Comment(s): past hx. hepatitis A as a baby, hx. right breast cancer 2009, ovarian cancer 2005-tx. w/chemo for both, diet controlled diabetic, peripheral neuropathy History of Any Multi-Drug Resistant Organisms: None Reported Past Surgical History: Breast Surgery, Hysterectomy, Tonsillectomy Additional Past Surgical History / Comment(s): americo. mastectomy, partial omentectomy, mediport insertion Past Anesthesia/Blood Transfusion Reactions: No Reported Reaction Past Psychological History: No Psychological Hx Reported Smoking Status: Never smoker Past Alcohol Use History: None Reported Past Drug Use History: None Reported - Past Family History Sister(s) Family Medical History: Cancer Additional Family Medical History / Comment(s): breast Mother Family Medical History: Deep Vein Thrombosis (DVT) Medications and Allergies Home Medications Medication Instructions Recorded Confirmed Type Baclofen [Lioresal] 10 mg PO BID 05/09/17 07/18/19 History Cholecalciferol [Vitamin D3] 1,000 unit PO BID 05/09/17 07/18/19 History Ibuprofen [Motrin] 800 mg PO BID 05/09/17 07/18/19 History Letrozole [Femara] 2.5 mg PO HS 05/09/17 07/18/19 History Ranitidine HCl [Zantac] 300 mg PO HS 05/09/17 07/18/19 History Lisinopril [Zestril] 10 mg PO HS 11/08/17 07/18/19 History Allergies Allergy/AdvReac Type Severity Reaction Status Date / Time duloxetine [From Cymbalta] Allergy Unknown Verified 07/19/19 01:42 pregabalin [From Lyrica] Allergy Unknown Verified 07/19/19 01:42 orange juice AdvReac Nausea & Verified 07/19/19 01:42 Vomiting & Diarrhea Whole Milk AdvReac Nausea & Uncoded 07/18/19 21:14 Vomiting & Diarrhea Physical Examination - Vital Signs Vital Signs: Vital Signs Temp Pulse Pulse Resp BP BP Pulse Ox 07/19/19 04:00 98.2 F 87 16 151/76 98 07/19/19 01:05 97.3 F L 83 17 139/72 99 07/19/19 00:30 84 17 134/64 98 07/19/19 00:05 98.1 F 75 18 149/79 98 07/18/19 23:00 79 18 145/66 97 07/18/19 22:00 98.2 F 86 18 156/72 94 L 07/18/19 20:36 98.5 F 91 18 158/89 96 Intake and Output 07/18/19 07/19/19 07/19/19 22:59 06:59 14:59 Other: Voiding Method Toilet Weight 74.843 kg 74.6 kg Results - Laboratory Findings CBC and BMP: 07/19/19 06:02 07/19/19 06:02 Abnormal Lab Findings: Abnormal Labs 07/19/19 06:02 LDL Cholesterol, Calc 101 H
[2019-07-19] MEDS ORDERED: CLOPIDOGREL 75 MG TAB PO SCH (12:45)
[2019-07-19 12:56] VITALS: BP 148/82; PULSE 93; TEMP 97.4
--- NOTE | 2019-07-19 13:41 | P.DS ---
Providers Date of admission: 07/18/19 21:48 Expected date of discharge: 07/19/19 Attending physician: Inna Nelson Consults: 07/18/19 21:49 Consult Physician Routine Consulting Provider: Gris Peña Consult Reason/Comments: possible TIA Do you want consulting provider notified?: Yes Primary care physician: Ayaka Friedman [facility] Course: Discharge diagnosis 1. Possible TIA. CT of head completed at [facility] showing no acute intracranial hemorrhage or midline shift mild diffuse age-related cerebral atrophy and chronic small vessel ischemic changes. Neurology services have been consulted. Carotid and 2-D Doppler has been completed. PT OT consult placed. 2-D echo completed showing an EF of 55-60%. Carotid Doppler completed showing mild degree of grayscale if metastatic he with no sonographically evident hemodynamically significant stenosis within either visualized carotid arterial system. Patient was evaluated by neurology services patient has been cleared for discharge from neurology standpoint. Patient to follow-up with Dr. Snider for open MRI outpatient patient's symptoms have completely resolved. She started on aspirin and Plavix per neurology services 2. History of breast cancer in 2009 with chemo and bilateral mastectomy 3. History of ovarian cancer in 2005 with chemo 4. Diabetes mellitus. Diet controlled 5. History of GERD 6. History of liver disease Hospital course This is a 68-year-old female patient of Dr. friedman. Patient was transferred to [facility] from [facility] with concerns for possible TIA. 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 Patient also reports that she was hypertensive. Patient denies any confusion or trouble with gait. Patient denies any weakness to any extremities. Patient does have a past medical history of breast cancer, ovarian cancer, diabetes mellitus diet controlled, peripheral neuropathy, GERD, hypertension and liver disease. Patient had CT of the head completed at [facility] showing no acute intracranial hemorrhage or midline shift shift mild diffuse age-related cerebral atrophy and chronic small vessel ischemic changes. Chest x-ray also completed [facility] struggling chronic changes without acute pulmonary process EKG completed showing sinus rhythm. Neurology services have been consulted. Carotid and 2-D echo has been ordered. At this time patient is asymptomatic. Patient has clear speech. No weakness noted to extremities. Patient denies chest pain or shortness breath. Patient denies nausea vomiting or diarrhea. Patient denies any urinary burning or frequency. On 07/19/2019 patient has been cleared for discharge from neurology standpoint recommend follow-up with Dr. Carbajal for further evaluation with possible open MRI. Patient has been started on Plavix and aspirin per neurology. 2-D echo completed showing EF of 55-60%. Carotid Doppler ultrasound completed showing no significant stenosis. Troponin was negative at [facility]. This time patient remained symptom-free. Patient denies chest pain or shortness breath. Patient denies nausea vomiting or diarrhea. Patient denies any urinary burning or frequency I performed an examination of the patient and discussed their management with the Nurse Practitioner. I have reviewed the Nurse Practitioner's notes and agree with the documented findings and plan of care Patient Condition at Discharge: Stable Plan - Discharge Summary Discharge Rx Participant: Yes New Discharge Prescriptions: New Aspirin 81 mg PO DAILY chew Continue Ibuprofen [Motrin] 800 mg PO BID Letrozole [Femara] 2.5 mg PO HS Cholecalciferol [Vitamin D3 (25 Mcg = 1000 Iu)] 1,000 unit PO BID Ranitidine HCl [Zantac] 300 mg PO HS Baclofen [Lioresal] 10 mg PO BID Lisinopril [Zestril] 10 mg PO HS Discharge Medication List Baclofen [Lioresal] 10 mg PO BID 05/09/17 [History] Cholecalciferol [Vitamin D3 (25 Mcg = 1000 Iu)] 1,000 unit PO BID 05/09/17 [History] Ibuprofen [Motrin] 800 mg PO BID 05/09/17 [History] Letrozole [Femara] 2.5 mg PO HS 05/09/17 [History] Ranitidine HCl [Zantac] 300 mg PO HS 05/09/17 [History] Lisinopril [Zestril] 10 mg PO HS 11/08/17 [History] Aspirin 81 mg PO DAILY chew 07/19/19 [Rx] Follow up Appointment(s)/Referral(s): Ayaka Friedman MD [Primary Care Provider] - 1-2 days Amira Feliz MD [Medical Doctor] - 1 Week Discharge Disposition: HOME SELF-CARE
[2019-07-19 19:40] LABS: Hemoglobin A1C 5.5 % (4.0-6.0)
[2019-07-19] MEDS ORDERED: LETROZOLE 2.5 MG TAB PO SCH (21:00)
[2019-07-19] MEDS ORDERED: HEPARIN SODIUM,PORCINE 5,000 UNIT/ML 1 ML VIAL SQ SCH (21:00)
[2019-07-19] MEDS ORDERED: LISINOPRIL 10 MG TAB PO SCH (21:00)
[2019-07-19] MEDS ORDERED: FAMOTIDINE 20 MG TAB PO SCH (21:00)
[2019-07-19] MEDS ORDERED: ASPIRIN 325 MG TAB PO SCH (22:00)
[2019-07-20] MEDS ORDERED: ASPIRIN 81 MG PO SCH (09:00)
== END 2019-07-19 15:09 | disposition home or self-care (01) ==
LOC: EC 20:34 → 3SCARD 21:48
PROVIDERS: ADMIT Internal Medicine; ATTEND Internal Medicine
DX: R13.10 Dysphagia, unspecified (principal); R09.89 Other specified symptoms and signs involving the circulatory and respiratory systems; R61 Generalized hyperhidrosis; R23.2 Flushing; I10 Essential (primary) hypertension; E11.42 Type 2 diabetes mellitus with diabetic polyneuropathy; K21.9 Gastro-esophageal reflux disease without esophagitis; B15.9 Hepatitis A without hepatic coma; M54.9 Dorsalgia, unspecified; I67.82 Cerebral ischemia; F40.240 Claustrophobia; E66.9 Obesity, unspecified; Z68.29 Body mass index [BMI] 29.0-29.9, adult; Z79.899 Other long term (current) drug therapy; Z79.1 Long term (current) use of non-steroidal anti-inflammatories (NSAID); Z91.011 Allergy to milk products; Z88.8 Allergy status to other drugs, medicaments and biological substances; Z91.018 Allergy to other foods; Z85.43 Personal history of malignant neoplasm of ovary; Z85.3 Personal history of malignant neoplasm of breast; Z90.13 Acquired absence of bilateral breasts and nipples; Z92.21 Personal history of antineoplastic chemotherapy; Z90.710 Acquired absence of both cervix and uterus; Z80.3 Family history of malignant neoplasm of breast; Z82.49 Family history of ischemic heart disease and other diseases of the circulatory system
CPT/HCPCS: 99285; 93306; 97161; 97165; 80061; 80053; 84443; 85025; 83036; 93880; G0378 ×2

== ENCOUNTER → 2019-09-03 | Outpatient (CLI) | payer MEDICARE, OTHER | END | disposition home or self-care (01) | LOC: LABWHC1 12:00 | PROVIDERS: ATTEND Nurse Practitioner Acute Care | DX: G45.9 Transient cerebral ischemic attack, unspecified (principal) | CPT/HCPCS: 36415; 83090 ==

== ENCOUNTER → 2021-06-08 | Outpatient (CLI) | payer MEDICARE, OTHER ==
--- NOTE | 2021-06-08 15:34 | BD ---
EXAMINATION TYPE: Axial Bone Density DATE OF EXAM: 06/08/2021 COMPARISON: NONE CLINICAL HISTORY: Height: 5 FT 4IN Weight: 161 FRAX RISK QUESTIONS: Alcohol (3 or more units per day): NO Family History (Parent hip fracture): NO Glucocorticoids (More than 3mos): NO (Ex: prednisone, prednisolone, methylprednisolone, dexamethasone, and hydrocortisone). History of Fracture in Adulthood: NO Secondary Osteoporosis: 1. Type 1 Diabetes: NO 2. Hyperthyroidism: NO 3. Menopause before 45: NO 4. Malnutrition: NO 5. Chronic liver disease: HEPATITIS A Rheumatoid Arthritis: NO Current Tobacco Use: NO RISK FACTORS HISTORY OF: Surgery to Spine/Hip(right/left)/Wrist (right/left): NO Family History of Osteoporosis: YES Active: YES Diet low in dairy products/other sources of calcium: NO Postmenopausal woman: EARLY 50'S Take estrogen and/or progesterone medications: NONE Lost more than 2 inches in height since high school: NO MEDICATIONS: Additional Medications: IBUPROFEN,BACLOFEN,LISINOPRIL, Additional History: OVARIAN CANCER AGE 53 CHEMO , BREAST CANCER AGE 59 CHEMO EXAM MEASUREMENTS: Bone mineral densitometry was performed using the [employer] System. Bone mineral density as measured about the Lumbar spine is: ----- L1-L4(G/cm2): 1.198 T Score Values are as follows: ----- L2: -0.4 ----- L3: 0.7 ----- L4: 0.4 ----- L1-L4: 0.1 Bone mineral density has: DECREASED -6.7 % since study of: 2018 Bone mineral density about the R hip (g/cm2): 0.808 Bone mineral density about the L hip (g/cm2): 0.797 T Score values are as follows: -----R Neck: -1.7 -----L Neck: -1.7 -----R Total: -1.1 -----L Total: -1.1 Bone mineral density has: DECREASED -0.9 % since study of: 2018 IMPRESSION: Osteopenia (T Score between -2.5 and -1). There is slightly increased risk of fracture and the patient may be considered for treatment. Re-Screen 2-5 years. NOTE: T-SCORE=SD OF THE YOUNG ADULT MEAN.
== END | disposition home or self-care (01) ==
LOC: RADBDWWP 09:47
PROVIDERS: ATTEND Internal Medicine Hematology & Oncology
DX: M85.89 Other specified disorders of bone density and structure, multiple sites (principal); Z85.3 Personal history of malignant neoplasm of breast; Z85.43 Personal history of malignant neoplasm of ovary
CPT/HCPCS: 77080

== ENCOUNTER 2022-01-27 09:03 | Emergency (ER) | payer MEDICARE, OTHER ==
[2022-01-27 09:28] VITALS: TEMP 98.2
[2022-01-27] MEDS ORDERED: SODIUM CHLORIDE 0.9% 1,000 ML IV STA (10:05)
[2022-01-27] MEDS ORDERED: ONDANSETRON 4 MG/2 ML VIAL IVP STA (10:05)
[2022-01-27] MEDS ORDERED: DIPHENOX-ATROP 2.5-0.025 MG 1 EACH TAB PO STA (10:13)
--- NOTE | 2022-01-27 10:23 | ED ---
Nausea/Vomiting/Diarrhea HPI - General Chief complaint: Nausea/Vomiting/Diarrhea Stated complaint: NVD Time Seen by Provider: 01/27/22 09:49 Source: patient, family, RN notes reviewed Mode of arrival: ambulatory Limitations: no limitations - History of Present Illness Initial comments: This is a 71-year-old female who presents to the emergency department for diarrhea. Symptoms have been present for 2 days. Describes stool as being largely water, and she is now having to wear diapers as she is unable to make it to the restroom. She has associated abdominal cramping and gurgling. She has been unable to take most of her medication due to her symptoms. She does have nausea but has not had any vomiting. Overall states that she feels very weak. She does have the BRCA 2 gene, and was treated for ovarian and breast cancer 10- 12 years ago. Because she is positive for this gene, she is concerned about colon cancer. She did have a colonoscopy a few years ago that did not demonstrate any abnormalities. 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 Denies any fevers, chills, sore throat, cough, dyspnea, chest pain, palpitations, vomiting, back pain, or headaches. MD complaint: diarrhea Onset/Timin -: days(s) Description of Diarrhea: water Associated Abdominal Pain: Yes Quality: cramping - Related Data Home Medications Medication Instructions Recorded Confirmed Baclofen [Lioresal] 10 mg PO BID 05/09/17 01/27/22 Letrozole [Femara] 2.5 mg PO HS 05/09/17 01/27/22 lisinopriL [Zestril] 10 mg PO HS 11/08/17 01/27/22 Cholecalciferol [Vitamin D3 (25 25 mcg PO DAILY 01/27/22 01/27/22 Mcg = 1000 Iu)] Famotidine [Pepcid] 20 mg PO HS 01/27/22 01/27/22 Ibuprofen [Motrin] 800 mg PO BID 01/27/22 01/27/22 Multivitamins, Thera [Multivitamin 1 tab PO DAILY 01/27/22 01/27/22 (formulary)] Previous Rx's Medication Instructions Recorded Aspirin 81 mg PO DAILY chew 07/19/19 Allergies Allergy/AdvReac Type Severity Reaction Status Date / Time duloxetine [From Cymbalta] Allergy Unknown Verified 01/27/22 10:59 pregabalin [From Lyrica] Allergy Unknown Verified 01/27/22 10:59 milk AdvReac Nausea & Verified 01/27/22 10:59 Vomiting & Diarrhea orange juice AdvReac Nausea & Verified 01/27/22 10:59 Vomiting & Diarrhea Review of Systems ROS Statement: Those systems with pertinent positive or pertinent negative responses have been documented in the HPI. ROS Other: All systems not noted in ROS Statement are negative. Past Medical History Past Medical History: Cancer, Diabetes Mellitus, GERD/Reflux, Hypertension, Liver Disease Additional Past Medical History / Comment(s): past hx. hepatitis A as a baby, hx. right breast cancer 2009, ovarian cancer 2005-tx. w/chemo for both, diet controlled diabetic, peripheral neuropathy History of Any Multi-Drug Resistant Organisms: None Reported Past Surgical History: Breast Surgery, Hysterectomy, Tonsillectomy Additional Past Surgical History / Comment(s): americo. mastectomy, partial omentectomy, mediport insertion Past Anesthesia/Blood Transfusion Reactions: No Reported Reaction Past Psychological History: No Psychological Hx Reported Smoking Status: Never smoker Past Alcohol Use History: None Reported Past Drug Use History: None Reported - Past Family History Sister(s) Family Medical History: Cancer Additional Family Medical History / Comment(s): breast Mother Family Medical History: Deep Vein Thrombosis (DVT) General Exam Limitations: no limitations General appearance: alert, in no apparent distress Head exam: Present: atraumatic, normocephalic, normal inspection Respiratory exam: Present: normal lung sounds bilaterally. Absent: respiratory distress, wheezes, rales, rhonchi, stridor Cardiovascular Exam: Present: regular rate, normal rhythm, normal heart sounds. Absent: systolic murmur, diastolic murmur, rubs, gallop, clicks GI/Abdominal exam: Present: soft, hyperactive bowel sounds. Absent: distended, tenderness, guarding, rebound, rigid Neurological exam: Present: alert, oriented X3, CN II-XII intact Psychiatric exam: Present: normal affect, normal mood Skin exam: Present: warm, dry, intact, normal color. Absent: rash Course Vital Signs 01/27/22 01/27/22 09:21 10:27 Temperature 98.2 F Pulse Rate 131 H 112 H Respiratory 16 18 Rate Blood Pressure 121/83 126/82 O2 Sat by Pulse 97 95 Oximetry Medical Decision Making - Medical Decision Making This is a 71-year-old female who presents the emergency department for diarrhea. Lab work does reveal mildly elevated liver enzymes compared to prior values. Lab work was otherwise unremarkable. CT of the abdomen and pelvis obtained. It revealed possible chronic colitis. It also demonstrated cholelithiasis, however patient states that she has known this for a while and follows with Dr. Daly. She was rehydrated with a liter bolus of normal saline and given Zofran and Lomotil in the emergency department. Patient advised that this is likely a gastroenteritis that will resolve on its own. I recommended she remain well- hydrated. I did offer to prescribe Zofran, however the patient declined and st ates that she will take Pepto-Bismol at home. Return precautions reviewed in depth, the patient is instructed to return to the emergency department with any new, worsening, or concerning symptoms. Patient verbalized understanding. This case was discussed in detail with the attending ED physician. Presentation, findings, and treatment plan discussed in detail as well. - Lab Data Result diagrams: 01/27/22 10:22 01/27/22 10:22 Lab Results 01/27/22 01/27/22 01/27/22 Range/Units 10:22 10:22 10:22 WBC 9.4 (3.8-10.6) k/uL RBC 4.87 (3.80-5.40) m/uL Hgb 15.0 (11.4-16.0) gm/dL Hct 46.6 H (34.0-46.0) % MCV 95.8 (80.0-100.0) fL MCH 30.8 (25.0-35.0) pg MCHC 32.2 (31.0-37.0) g/dL RDW 12.9 (11.5-15.5) % Plt Count 306 (150-450) k/uL MPV 8.3 Neutrophils % 79 % Lymphocytes % 12 % Monocytes % 6 % Eosinophils % 0 % Basophils % 0 % Neutrophils # 7.4 (1.3-7.7) k/uL Lymphocytes # 1.1 (1.0-4.8) k/uL Monocytes # 0.6 (0-1.0) k/uL Eosinophils # 0.0 (0-0.7) k/uL Basophils # 0.0 (0-0.2) k/uL Sodium 139 (137-145) mmol/L Potassium 3.9 (3.5-5.1) mmol/L Chloride 102 (98-107) mmol/L Carbon Dioxide 21 L (22-30) mmol/L Anion Gap 16 mmol/L BUN 25 H (7-17) mg/dL Creatinine 0.92 (0.52-1.04) mg/dL Est GFR (CKD-EPI)AfAm 73 (>60 ml/min/1.73 sqM) Est GFR (CKD-EPI)NonAf 64 (>60 ml/min/1.73 sqM) Glucose 146 H (74-99) mg/dL Calcium 9.8 (8.4-10.2) mg/dL Total Bilirubin 0.5 (0.2-1.3) mg/dL AST 48 H (14-36) U/L ALT 40 H (4-34) U/L Alkaline Phosphatase 97 (38-126) U/L Troponin I <0.012 (0.000-0.034) ng/mL Total Protein 8.4 H (6.3-8.2) g/dL Albumin 4.9 (3.5-5.0) g/dL Amylase 61 (30-110) U/L Lipase 85 (23-300) U/L Urine Color Urine Appearance (Clear) Urine pH (5.0-8.0) Ur Specific [place] (1.001-1.035) Urine Protein (Negative) Urine Glucose (UA) (Negative) Urine Ketones (Negative) Urine Blood (Negative) Urine Nitrite (Negative) Urine Bilirubin (Negative) Urine Urobilinogen (<2.0) mg/dL Ur Leukocyte Esterase (Negative) Coronavirus (PCR) (Not Detectd) 01/27/22 01/27/22 Range/Units 10:22 12:53 WBC (3.8-10.6) k/uL RBC (3.80-5.40) m/uL Hgb (11.4-16.0) gm/dL Hct (34.0-46.0) % MCV (80.0-100.0) fL MCH (25.0-35.0) pg MCHC (31.0-37.0) g/dL RDW (11.5-15.5) % Plt Count (150-450) k/uL MPV Neutrophils % % Lymphocytes % % Monocytes % % Eosinophils % % Basophils % % Neutrophils # (1.3-7.7) k/uL Lymphocytes # (1.0-4.8) k/uL Monocytes # (0-1.0) k/uL Eosinophils # (0-0.7) k/uL Basophils # (0-0.2) k/uL Sodium (137-145) mmol/L Potassium (3.5-5.1) mmol/L Chloride (98-107) mmol/L Carbon Dioxide (22-30) mmol/L Anion Gap mmol/L BUN (7-17) mg/dL Creatinine (0.52-1.04) mg/dL Est GFR (CKD-EPI)AfAm (>60 ml/min/1.73 sqM) Est GFR (CKD-EPI)NonAf (>60 ml/min/1.73 sqM) Glucose (74-99) mg/dL Calcium (8.4-10.2) mg/dL Total Bilirubin (0.2-1.3) mg/dL AST (14-36) U/L ALT (4-34) U/L Alkaline Phosphatase (38-126) U/L Troponin I (0.000-0.034) ng/mL Total Protein (6.3-8.2) g/dL Albumin (3.5-5.0) g/dL Amylase (30-110) U/L Lipase (23-300) U/L Urine Color Light Yellow Urine Appearance Clear (Clear) Urine pH 5.5 (5.0-8.0) Ur Specific [place] 1.026 (1.001-1.035) Urine Protein Negative (Negative) Urine Glucose (UA) Negative (Negative) Urine Ketones 1+ H (Negative) Urine Blood Negative (Negative) Urine Nitrite Negative (Negative) Urine Bilirubin Negative (Negative) Urine Urobilinogen <2.0 (<2.0) mg/dL Ur Leukocyte Esterase Negative (Negative) Coronavirus (PCR) Not Detected (Not Detectd) - Radiology Data Radiology results: report reviewed, image reviewed Disposition Clinical Impression: Gastroenteritis Disposition: HOME SELF-CARE Instructions (If sedation given, give patient instructions): Gastroenteritis (ED), Acute Diarrhea (ED) Additional Instructions: Return to the emergency department with any new, worsening, or concerning symptoms. Continue to remain well-hydrated and advance your diet as tolerated. Follow up with your primary care provider in 1-2 days. Is patient prescribed a controlled substance at d/c from ED?: No Referrals: Ayaka Friedman MD [Primary Care Provider] - 1-2 days
[2022-01-27 10:37] LABS: Basophils % (A) 0 %; Eosinophils % (A) 0 %; HCT 46.6 % (34.0-46.0); Lymphocytes # (A) 1.1 k/uL (1.0-4.8); Lymphocytes % (A) 12 %; MCH 30.8 pg (25.0-35.0); MCHC 32.2 g/dL (31.0-37.0); MCV 95.8 fL (80.0-100.0); Mean Platelet Volume 8.3; Monocytes # (A) 0.6 k/uL (0-1.0); Monocytes % (A) 6 %; Neutrophils # (A) 7.4 k/uL (1.3-7.7); Neutrophils % (A) 79 %; Platelet Count 306 k/uL (150-450); RBC 4.87 m/uL (3.80-5.40); RDW 12.9 % (11.5-15.5); WBC 9.4 k/uL (3.8-10.6)
[2022-01-27 11:02] LABS: Albumin 4.9 g/dL (3.5-5.0); Calcium 9.8 mg/dL (8.4-10.2); Potassium 3.9 mmol/L (3.5-5.1); Total Bilirubin 0.5 mg/dL (0.2-1.3); Total Protein 8.4 g/dL (6.3-8.2)
--- NOTE | 2022-01-27 12:25 | CT ---
EXAMINATION TYPE: CT abdomen pelvis w con DATE OF EXAM: 01/27/2022 COMPARISON: CT dated 08/29/2016 HISTORY: Nausea, vomiting and diarrhea CT DLP: 772 mGycm Automated exposure control for dose reduction was used. TECHNIQUE: Helical acquisition of images was performed from the lung bases through the pelvis. CONTRAST: Performed without Oral Contrast and with IV Contrast, patient injected with 100 mL of Isovue 300. FINDINGS: LUNG BASES: No significant abnormality is appreciated. LIVER/GB: Subtle ill-defined hypodensity seen in the left hepatic lobe measuring about 10 mm, incompl etely characterized by this CT scan and could represent focal fat infiltration. Unremarkable liver ot herwise. Suspected cholelithiasis. Mild focal wall thickening of the superior aspect of the gallbladd er. No convincing evidence of acute cholecystitis. Recommend correlation with elective ultrasound res ults. PANCREAS: No significant abnormality is seen. SPLEEN: No significant abnormality is seen. ADRENALS: No significant abnormality is seen. KIDNEYS: Right renal focal cortical defect with tiny focal cortical calcification. Tiny left 2 mm non obstructing renal calculus. Unremarkable kidneys otherwise. FREE AIR: No free air is visualized. RETROPERITONEAL ADENOPATHY: None visualized REPRODUCTIVE ORGANS: Suspected previous hysterectomy. No gross adnexal mass. URINARY BLADDER: No significant abnormality is seen. PELVIC ADENOPATHY: No pathologically enlarged pelvic lymph nodes. OSSEOUS STRUCTURES: Degenerative changes of the lower thoracic and lower lumbar spine. BOWEL: Small sliding hiatal hernia, otherwise unremarkable nondistended stomach, duodenum and small bowel. Diffuse minimal wall thickening of the left hemicolon, nonspecific. Mild chronic colitis canno t be excluded. No evidence of acute appendicitis. Possible adhesion between the pelvic small bowel an d the vagina vault. OTHER: Scattered arterial atherosclerotic calcifications. No sizable ascites. Anterior abdominal surg ical clips. IMPRESSION: NO GROSS ACUTE ABNORMALITY SEEN IN THE ABDOMEN OR THE PELVIS. MULTIPLE INCIDENTAL FINDINGS AND RECOMM ENDATIONS DETAILED ABOVE.
[2022-01-27 13:01] LABS: Appearance,Urine Clear (Clear); Bilirubin,Urine Negative (Negative); Blood,Urine Negative (Negative); Color,Urine Light Yellow; Glucose,Urine (UA) Negative (Negative); Ketones,Urine 1+ (Negative); Leukocyte Esterase,Urine Negative (Negative); Nitrite,Urine Negative (Negative); PH, Urine 5.5 (5.0-8.0); Protein,Urine Negative (Negative); Specific Gravity,Urine 1.026 (1.001-1.035); Urobilinogen,Urine <2.0 mg/dL (<2.0)
[2022-01-27 13:17] VITALS: BP 151/61; PULSE 98; RESP 16
== END 2022-01-27 13:30 | disposition home or self-care (01) ==
LOC: EC 09:03
DX: K52.9 Noninfective gastroenteritis and colitis, unspecified (principal); I10 Essential (primary) hypertension; E11.9 Type 2 diabetes mellitus without complications; Z20.822 Contact with and (suspected) exposure to COVID-19; Z88.8 Allergy status to other drugs, medicaments and biological substances; Z91.011 Allergy to milk products; Z91.018 Allergy to other foods
CPT/HCPCS: 36415; 80053; 82150; 83690; 84484; 85025; 81003; 87635; 74177; 99285; 96374; 96361; J2405; Q9967

== ENCOUNTER → 2023-04-28 | Outpatient (CLI) | payer MEDICARE, OTHER ==
[2023-04-28 12:28] LABS: African American GFR (CKD) >90 (>60 ml/min/1.73 sqM); Blood Urea Nitrogen 19 mg/dL (7-17); Non-African American GFR(CKD) 90 (>60 ml/min/1.73 sqM)
--- NOTE | 2023-05-01 02:16 | CT ---
EXAMINATION TYPE: CT abdomen pelvis w con DATE OF EXAM: 04/28/2023 COMPARISON: 01/27/2022 HISTORY: 72-year-old female C5 6.2, diarrhea, hx of left ovarian ca TECHNIQUE: Contiguous axial scanning of the abdomen and pelvis following administration of 100 ml Iso rosio 300 IV contrast. Delayed images through the kidneys and coronal/sagittal reconstructions perform ed. CT DLP: 1100.5 mGycm Automated exposure control for dose reduction was used. FINDINGS: Heart is normal size without pericardial effusion. Lung bases clear without pleural effusio n. Tiny hiatal hernia. Bilateral mastectomies are suggested. No focal liver lesion or biliary ductal dilatation. Portal venous system is patent. There is thickening and enhancement along the mid to fundal gallbladder wall with more nodular thicke gucci at the fundus measuring 1.6 cm. Recommend gallbladder ultrasound and surgical evaluation to excl ude early gallbladder carcinoma. Adrenal glands, kidneys, spleen, and pancreas unremarkable. No dilated small bowel, free fluid, or free air. No mesenteric or retroperitoneal lymphadenopathy. Hunt rgical clips along the anterior omentum. Oral contrast has progressed to the junction of the descending colon with the sigmoid colon. No signi ficant stool burden. No pericolonic inflammatory change. Prominent distention of the bladder. There is mild pelvic floor relaxation. Uterus surgically absent. Neither ovary is visualized. No abnormal fluid collection in the pelvis or pelvic lymphadenopathy. Bones: Moderate spondylotic change lower lumbar spine. No osseous destructive process seen. IMPRESSION: 1. MID TO FUNDAL GALLBLADDER WALL THICKENING WITH MORE NODULAR SOFT TISSUE MEASURING 1.6 CM AT THE FU NDUS OF THE GALLBLADDER. RECOMMEND GALLBLADDER ULTRASOUND AND SURGICAL CONSULTATION TO EXCLUDE EARLY GALLBLADDER CARCINOMA. 2. STATUS POST HYSTERECTOMY AND BILATERAL SALPINGO-OOPHORECTOMIES. SURGICAL CLIPS ALONG THE OMENTUM F ROM PRIOR SURGERY. OTHERWISE, NO SUSPICIOUS MASS OR LYMPHADENOPATHY TO SUGGEST RECURRENCE OF THE OVAR ADRIANNE CANCER.
== END | disposition home or self-care (01) ==
LOC: RADCTMAIN 04-25 17:32
PROVIDERS: ATTEND Internal Medicine Hematology & Oncology
DX: C56.2 Malignant neoplasm of left ovary (principal); C50.411 Malignant neoplasm of upper-outer quadrant of right female breast; G62.1 Alcoholic polyneuropathy; I10 Essential (primary) hypertension
CPT/HCPCS: 36415; 74177

== ENCOUNTER 2025-01-22 14:49 | Inpatient (IN) | payer MEDICARE, OTHER ==
--- NOTE | 2025-01-22 15:37 | ED ---
Abdominal Pain HPI - General Source: patient, RN notes reviewed Mode of arrival: wheelchair Limitations: no limitations <Trini Rangel - Last Filed: 01/22/25 15:36> - General Source: patient, RN notes reviewed Mode of arrival: wheelchair Limitations: no limitations - History of Present Illness MD Complaint: abdominal pain Onset/Timin -: days(s) Location: RUQ Radiation: R flank Migration to: no migration Severity scale (1-10): 10 Consistency: constant Associated Symptoms: nausea, diarrhea, fever Treatments Prior to Arrival: NSAIDs <Aravind Nicole - Last Filed: 01/22/25 23:58> - General Chief Complaint: Abdominal Pain Stated Complaint: abd pain Time Seen by Provider: 01/22/25 15:02 - History of Present Illness Initial Comments: Quick [id number] female resents emergency department with referral from urgent care for complaints of right upper quadrant Thiago pain with associated nausea, diarrhea, fevers. Patient states that symptoms started yesterday evening has been associated loose stools. Patient states that she has a history of gallstones. (Trini Rangel) This is a 74-year-old female with history including breast/ovarian cancer, DM and liver disease with Cholelithiasis presenting from urgent care for RUQ pain since last night. Patient states pain is constant, radiating to her right flank with associated nausea and loose stools. Patient states pain worsens with inhalation and coughing (10/10). States she had a fever this morning of 101.7F that resolved with ibuprofen use. Patient denies chest pain, dyspnea/SOB, vomiting, hematochezia, melena, pale stool. Denies use of blood thinners. (Aravind Nicole) - Related Data Home Medications Medication Instructions Recorded Confirmed Baclofen [Lioresal] 10 mg PO BID 05/09/17 01/22/25 Letrozole [Femara] 2.5 mg PO HS 05/09/17 01/22/25 lisinopriL [Zestril] 10 mg PO HS 11/08/17 01/22/25 Cholecalciferol [Vitamin D3 (25 25 mcg PO DAILY 01/27/22 01/22/25 Mcg = 1000 Iu)] Ibuprofen [Motrin] 800 mg PO BID 01/27/22 01/22/25 Famotidine [Pepcid] 40 mg PO HS 06/13/23 01/22/25 Multivit with Calcium,Iron,Min 1 tab PO DAILY 01/22/25 01/22/25 [Women's Multivitamin] Allergies Allergy/AdvReac Type Severity Reaction Status Date / Time duloxetine [From Cymbalta] Allergy Unknown Verified 01/22/25 20:04 pregabalin [From Lyrica] Allergy Unknown Verified 01/22/25 20:04 milk AdvReac Nausea & Verified 01/22/25 20:04 Vomiting & Diarrhea orange juice AdvReac Nausea & Verified 01/22/25 20:04 Vomiting & Diarrhea Review of Systems ROS Other: All systems not noted in ROS Statement are negative. <Trini Rangel - Last Filed: 01/22/25 15:36> ROS Other: All systems not noted in ROS Statement are negative. <Aravind Nicole - Last Filed: 01/22/25 23:58> ROS Statement: Those systems with pertinent positive or pertinent negative responses have been documented in the HPI. Past Medical History Past Medical History: Cancer, Diabetes Mellitus, GERD/Reflux, Hypertension, Liver Disease Additional Past Medical History / Comment(s): past hx. hepatitis A as a baby, hx. right breast cancer 2009, ovarian cancer 2005-tx. w/chemo for both, diet controlled diabetic, peripheral neuropathy History of Any Multi-Drug Resistant Organisms: None Reported Past Surgical History: Breast Surgery, Hysterectomy, Tonsillectomy Additional Past Surgical History / Comment(s): americo. mastectomy, partial omentectomy, mediport insertion Past Anesthesia/Blood Transfusion Reactions: No Reported Reaction Past Psychological History: No Psychological Hx Reported Smoking Status: Never smoker Past Alcohol Use History: None Reported Past Drug Use History: None Reported - Past Family History Sister(s) Family Medical History: Cancer Additional Family Medical History / Comment(s): breast Mother Family Medical History: Deep Vein Thrombosis (DVT) <Trini Rangel - Last Filed: 01/22/25 15:36> General Exam Limitations: no limitations <Trini Rangel - Last Filed: 01/22/25 15:36> Limitations: no limitations General appearance: alert, in no apparent distress Head exam: Present: atraumatic, normocephalic, normal inspection Eye exam: Present: normal appearance, PERRL, EOMI. Absent: scleral icterus, conjunctival injection, periorbital swelling ENT exam: Present: normal exam, mucous membranes moist Neck exam: Present: normal inspection. Absent: tenderness, meningismus, lymphadenopathy Respiratory exam: Present: normal lung sounds bilaterally. Absent: respiratory distress, wheezes, rales, rhonchi, stridor Cardiovascular Exam: Present: regular rate, normal rhythm, normal heart sounds. Absent: systolic murmur, diastolic murmur, rubs, gallop, clicks GI/Abdominal exam: Present: soft, tenderness (Positive RUQ tenderness and tympanic tenderness. Positive Muñoz sign), normal bowel sounds, other (Negative Rovsing sign,, McBurney point). Absent: distended, guarding, rebound, rigid Extremities exam: Present: normal inspection, full ROM, normal capillary refill. Absent: tenderness, pedal edema, joint swelling, calf tenderness Back exam: Present: normal inspection. Absent: CVA tenderness (R), CVA tenderness (L) Neurological exam: Present: alert, oriented X3, CN II-XII intact Psychiatric exam: Present: normal affect, normal mood Skin exam: Present: warm, dry, intact, normal color. Absent: rash <Aravind Nicole - Last Filed: 01/22/25 23:58> - General Exam Comments Initial Comments: Visual Physical Exam Vital signs reviewed General: Well-appearing, nontoxic, no acute distress. Head: Normocephalic, atraumatic Eyes: PERRLA, EOMI ENT: Airway patent Chest: Nonlabored breathing Skin: No visual rash, normal skin tone Neuro: Alert and oriented 3 Musculoskeletal: No gross abnormalities (Trini Rangel) Course Vital Signs 01/22/25 01/22/25 01/22/25 14:57 17:39 22:07 Temperature 98.4 F 98.7 F Pulse Rate 118 H 100 85 Respiratory 16 18 18 Rate Blood Pressure 125/76 101/63 112/67 O2 Sat by Pulse 96 95 94 L Oximetry Medical Decision Making <Trini Rangel - Last Filed: 01/22/25 15:36> - Lab Data Result diagrams: 01/22/25 17:23 01/22/25 17:23 <Aravind Nicole - Last Filed: 01/22/25 23:58> - Medical Decision Making I completed the quick note portion of this chart signed Trini Rangel PA-C (Trini Rangel) Was pt. sent in by a medical professional or institution (JAYE Trinidad, RIGGER HELPER, urgent care, hospital, or detention...) When possible be specific @ -Urgent care Did you speak to anyone other than the patient for history (EMS, parent, family, police, friend...)? What history was obtained from this source @ -No Did you review nursing and triage notes (agree or disagree)? Why? @ -I reviewed and agree with nursing and triage notes Were old charts reviewed (outside hosp., previous admission, EMS record, old EKG, old radiological studies, urgent care reports/EKG's, detention records)? Report findings @ -Abdomen/pelvic CT report from 06/13/2023 reviewed indicating gallbladder wall thickening with cholelithiasis, indicating cholecystitis Differential Diagnosis (chest pain, altered mental status, abdominal pain women, abdominal pain men, vaginal bleeding, weakness, fever, dyspnea, syncope, headache, dizziness, GI bleed, back pain, seizure, CVA, palpatations, mental health, musculoskeletal)? @ -Differential Abdominal Pain Women: Appendicitis, Cholecystitis, diverticulosis, ischemic bowel, pancreatitis, hepatitis, UTI, gastroenteritis, AAA, incarcerated hernia, bowel obstruction, constipation, inflammatory bowel, hepatitis, peptic ulcer disease, splenic infarction, perforated viscus, vulvitis, ovarian torsion, PID, kidney stone, placenta abruption, this is not meant to be an all-inclusive list EKG interpreted by me (3pts min.). @ -Sinus rhythm without ST deviation and isolated T wave inversion in lead III. Ventricular rate 97 bpm, NV 163 ms, QRS 88 ms, QTc 397 ms. X-rays interpreted by me (1pt min.). @ -CXR shows right middle lobe pneumonia. CT interpreted by me (1pt min.). @ -Chest/abdomen/pelvic CT shows multifocal pneumonia predominantly in right middle lobe. Cholelithiasis without evidence of gallbladder wall thickening. Radiologist notes mild progression suggesting adenomyomatosis. Small hiatal hernia and nonobstructing right renal calculus similar to prior imaging. U/S interpreted by me (1pt. min.). @ -Gallbladder ultrasound shows signs of acute cholecystitis with cholelithiasis and positive sonographic Muñoz sign. No pericholecystic fluid suggesting possible malignancy etiology. What testing was considered but not performed or refused? (CT, X-rays, U/S, labs)? Why? @ -None What meds were considered but not given or refused? Why? @ -None Did you discuss the management of the patient with other professionals (professionals i.e. , PA, RIGGER HELPER, lab, RT, psych nurse, social work specialist, gas plant specialist, teacher, casino surveillance officer, watch case polisher)? Give summary @ -Spoke to Dr. Godinez who advised CT chest, abdomen/pelvis. Also advised obtaining C. difficile specimen and twelve-lead ECG. Spoke to Dr. Nelson who agreed to patient admission. Was smoking cessation discussed for >3mins.? @ -No Was critical care preformed (if so, how long)? @ -No Were there social determinants of health that impacted care today? How? (Syd elessness, low income, unemployed, alcoholism, drug addiction, transportation, low edu. Level, literacy, decrease access to med. care, halfway, rehab)? @ -No Was there de-escalation of care discussed even if they declined (Discuss DNR or withdrawal of care, Hospice)? DNR status @ -No What co-morbidities impacted this encounter? (DM, HTN, Smoking, COPD, CAD, Cancer, CVA, ARF, Chemo, Hep., AIDS, mental health diagnosis, sleep apnea, morbid obesity)? @ -None Was patient admitted / discharged? Hospital course, mention meds given and route, prescriptions, significant lab abnormalities, going to OR and other pertinent info. @ -Lab work notable for leukocytosis 33.95 with left shift. Anemia with hemoglobin 11.4, BUN 28 and hyperglycemia 140. Lactic acid 2.0. Curb-65 score: 2. UA generally unremarkable. Gallbladder ultrasound shows signs of acute cholecystitis with cholelithiasis and positive sonographic Muñoz sign. No pericholecystic fluid suggesting possible malignancy etiology. Patient initially provided IV normal saline, morphine, Toradol and p.o. Tylenol. Patient states pain and nausea improved following treatment. Upon ultrasound findings, patient started on IV Zosyn. Contacted Dr. Godinez who advised chest/abdomen/pelvic CT, C. difficile test and twelve-lead EKG. Spoke to Dr. Nelson who agreed to patient admission. CXR shows right middle lobe pneumonia. Patient started on IV Rocephin and p.o. Augmentin and azithromycin. Chest/abdomen/pelvic CT shows multifocal pneumonia predominantly in right middle lobe. Cholelithiasis without evidence of gallbladder wall thickening. Radiologist notes mild progression suggesting adenomyomatosis. Small hiatal hernia and nonobstructing right renal calculus similar to prior imaging. Discussed patient with Dr. Gaytan. Undiagnosed new problem with uncertain prognosis? @ -No Drug Therapy requiring intensive monitoring for toxicity (Heparin, Nitro, Insulin, Cardizem)? @ -No Were any procedures done? @ -No Diagnosis/symptom? @ -Pneumonia, cholecystitis Acute, or Chronic, or Acute on Chronic? @ -Acute Uncomplicated (without systemic symptoms) or Complicated (systemic symptoms)? @ -Complicated Side effects of treatment? @ -No Exacerbation, Progression, or Severe Exacerbation? @ -No Poses a threat to life or bodily function? How? (Chest pain, USA, NC, pneumonia, PE, COPD, DKA, ARF, appy, cholecystitis, CVA, Diverticulitis, Homicidal, Suicidal, threat to staff... and all critical care pts) @ -Cholecystitis, pneumonia (Aravind Nicole) - Lab Data Lab Results 01/22/25 01/22/25 01/22/25 Range/Units 17:23 17:23 17:23 WBC 33.95 H (4.50-10.00) 10*3/uL RBC 3.55 L (4.10-5.20) 10*6/uL Hgb 11.4 L (12.0-15.0) g/dL Hct 33.1 L (37.2-46.3) % MCV 93.2 (80.0-97.0) fL MCH 32.1 H (27.0-32.0) pg MCHC 34.4 (32.0-37.0) g/dL Plt Count 262 (140-440) 10*3/uL MPV 9.7 (9.5-12.2) fL Immature Gran % (Auto) 1.9 % Neutrophils % 90.7 % Lymphocytes % 2.4 % Monocytes % 4.2 % Eosinophils % 0.4 % Basophils % 0.4 % Immature Gran # 0.65 H (0.00-0.04) 10*3/uL Neutrophils # 30.77 H (1.80-7.70) 10*3/uL Lymphocytes # 0.83 L (0.90-5.00) 10*3/uL Monocytes # 1.42 H (0.20-1.00) 10*3/uL Eosinophils # 0.14 (0.04-0.35) 10*3/uL Basophils # 0.14 H (0.00-0.10) 10*3/uL Manual Slide Review Performed Sodium 137 (137-145) mmol/L Potassium 4.0 (3.5-5.1) mmol/L Chloride 104 (98-107) mmol/L Carbon Dioxide 25 (22-30) mmol/L Anion Gap 8 mmol/L BUN 28 H (7-17) mg/dL Creatinine 0.82 (0.52-1.04) mg/dL Est GFR (CKD-EPI)AfAm 82 (>60 ml/min/1.73 sqM) Est GFR (CKD-EPI)NonAf 71 (>60 ml/min/1.73 sqM) Glucose 140 H (74-99) mg/dL Plasma Lactic Acid Sergio (0.7-2.0) mmol/L Calcium 10.0 (8.4-10.2) mg/dL Total Bilirubin 1.0 (0.2-1.3) mg/dL AST 21 (14-36) U/L ALT 16 (4-34) U/L Alkaline Phosphatase 61 (38-126) U/L Total Protein 6.9 (6.3-8.2) g/dL Albumin 4.0 (3.5-5.0) g/dL Amylase 49 (30-110) U/L Lipase 40 (23-300) U/L Urine Color Light Yellow Urine Appearance Clear (Clear) Urine pH 5.5 (5.0-8.0) Ur Specific [place] 1.018 (1.001-1.035) Urine Protein Trace H (Negative) Urine Glucose (UA) Negative (Negative) Urine Ketones Negative (Negative) Urine Blood Negative (Negative) Urine Nitrite Negative (Negative) Urine Bilirubin Negative (Negative) Urine Urobilinogen <2.0 (<2.0) mg/dL Ur Leukocyte Esterase Small H (Negative) Urine RBC 1 (0-5) /hpf Urine WBC 16 H (0-5) /hpf Hyaline Casts 3 H (0-2) /lpf Urine Mucus Rare H (None) /hpf 01/22/25 Range/Units 17:23 WBC (4.50-10.00) 10*3/uL RBC (4.10-5.20) 10*6/uL Hgb (12.0-15.0) g/dL Hct (37.2-46.3) % MCV (80.0-97.0) fL MCH (27.0-32.0) pg MCHC (32.0-37.0) g/dL Plt Count (140-440) 10*3/uL MPV (9.5-12.2) fL Immature Gran % (Auto) % Neutrophils % % Lymphocytes % % Monocytes % % Eosinophils % % Basophils % % Immature Gran # (0.00-0.04) 10*3/uL Neutrophils # (1.80-7.70) 10*3/uL Lymphocytes # (0.90-5.00) 10*3/uL Monocytes # (0.20-1.00) 10*3/uL Eosinophils # (0.04-0.35) 10*3/uL Basophils # (0.00-0.10) 10*3/uL Manual Slide Review Sodium (137-145) mmol/L Potassium (3.5-5.1) mmol/L Chloride (98-107) mmol/L Carbon Dioxide (22-30) mmol/L Anion Gap mmol/L BUN (7-17) mg/dL Creatinine (0.52-1.04) mg/dL Est GFR (CKD-EPI)AfAm (>60 ml/min/1.73 sqM) Est GFR (CKD-EPI)NonAf (>60 ml/min/1.73 sqM) Glucose (74-99) mg/dL Plasma Lactic Acid Sergio 2.0 (0.7-2.0) mmol/L Calcium (8.4-10.2) mg/dL Total Bilirubin (0.2-1.3) mg/dL AST (14-36) U/L ALT (4-34) U/L Alkaline Phosphatase (38-126) U/L Total Protein (6.3-8.2) g/dL Albumin (3.5-5.0) g/dL Amylase (30-110) U/L Lipase (23-300) U/L Urine Color Urine Appearance (Clear) Urine pH (5.0-8.0) Ur Specific [place] (1.001-1.035) Urine Protein (Negative) Urine Glucose (UA) (Negative) Urine Ketones (Negative) Urine Blood (Negative) Urine Nitrite (Negative) Urine Bilirubin (Negative) Urine Urobilinogen (<2.0) mg/dL Ur Leukocyte Esterase (Negative) Urine RBC (0-5) /hpf Urine WBC (0-5) /hpf Hyaline Casts (0-2) /lpf Urine Mucus (None) /hpf Disposition <Trini Rangel - Last Filed: 01/22/25 15:36> Is patient prescribed a controlled substance at d/c from ED?: No Time of Disposition: 19:18 Decision Date: 01/22/25 Decision Time: 19:18 <Aravind Nicole - Last Filed: 01/22/25 23:58> Clinical Impression: Cholecystitis, Pneumonia, Cholelithiasis Disposition: ADMITTED IP TO THIS HOSP Condition: Fair
--- NOTE | 2025-01-22 16:27 | US ---
EXAMINATION TYPE: US gallbladder DATE OF EXAM: 01/22/2025 COMPARISON: Gallbladder ultrasound (06/13/2023), CT abdomen pelvis 06/13/2023 CLINICAL INDICATION: Female, 74 years old with history of RUQ ab pain; known gallstone, thickened gb wall, hx of ovarian & breast ca TECHNIQUE: Grayscale and color Doppler imaging of the right upper quadrant. FINDINGS: EXAM MEASUREMENTS: Liver Length: 13.7 Gallbladder Wall: 0.5cm CBD: 0.5cm color Doppler imaging was utilized to isolate the common bile duct for measurement. Right Kidney: 9.9x3.9x4.3cm ANTHROPOLOGY FACULTY MEMBER NOTES: slightly limited scan due to overlying bowel/gas Pancreas: Tail obscured by overlying bowel gas Liver: no obvious abnormalities seen Gallbladder: echogenic foci seen w twinkle artifact: 2.5cm previous US: 2.7cm, ?thickened irregular gb wall & ?possible sludge seen within GB Evidence for sonographic Muñoz's sign: Yes CBD: wnl Right Kidney: ?echogenic foci seen: 0.6cm Previous US:0.7cm The visualized portions of the pancreas are within normal limits. The tail is obscured by overlying b owel gas. The liver is unremarkable without focal lesion. Echogenic foci with clinical artifact ident ified within the gallbladder measuring up to 2.5 cm. There is again irregular and thickened gallbladd er wall measuring up to 0.5 cm with possible sludge within the gallbladder. No pericholecystic fluid. Reported positive sonographic Muñoz's sign. Common bile duct is within normal limits. Right kidney demonstrates no solid mass or hydronephrosis. Nonobstructing right renal calculus identified. IMPRESSION: 1. Findings equivocal for acute cholecystitis with cholelithiasis and positive sonographic Muñoz's s ign. However there is no pericholecystic fluid. There is again nonspecific irregular gallbladder wall thickening dating back to 2022. Could be related to chronic cholecystitis versus other etiologies field ch as malignancy. Consider further evaluation with nuclear medicine HIDA scan. 2. Nonobstructing right renal calculus. [facility], , 01/22/2025 4:25 PM
[2025-01-22 17:35] LABS: Appearance,Urine Clear (Clear); Bilirubin,Urine Negative (Negative); Blood,Urine Negative (Negative); Color,Urine Light Yellow; Glucose,Urine (UA) Negative (Negative); Hyaline Casts,Urine 3 /lpf (0-2); Ketones,Urine Negative (Negative); Leukocyte Esterase,Urine Small (Negative); Mucus,Urine Rare /hpf; Nitrite,Urine Negative (Negative); PH, Urine 5.5 (5.0-8.0); Protein,Urine Trace (Negative); RBC,Urine 1 /hpf (0-5); Specific Gravity,Urine 1.018 (1.001-1.035); Urobilinogen,Urine <2.0 mg/dL (<2.0); WBC,Urine 16 /hpf (0-5)
[2025-01-22] MEDS: ACETAMINOPHEN TAB 500 MG TAB PO STA (17:38)
[2025-01-22] MEDS: SODIUM CHLORIDE 0.9% 1,000 ML IV STA (17:38)
[2025-01-22] MEDS: MORPHINE SULFATE 4 MG/ML SYRINGE IVP STA (17:39)
[2025-01-22] MEDS: KETOROLAC 15 MG/ML 1 ML VIAL IVP STA (17:39)
[2025-01-22 17:42] LABS: Basophils # (A) 0.14 10*3/uL (0.00-0.10); Basophils % (A) 0.4 %; Eosinophils # (A) 0.14 10*3/uL (0.04-0.35); Eosinophils % (A) 0.4 %; HCT 33.1 % (37.2-46.3); HGB 11.4 g/dL (12.0-15.0); Lymphocytes # (A) 0.83 10*3/uL (0.90-5.00); Lymphocytes % (A) 2.4 %; MCH 32.1 pg (27.0-32.0); MCHC 34.4 g/dL (32.0-37.0); MCV 93.2 fL (80.0-97.0); Mean Platelet Volume 9.7 fL (9.5-12.2); Monocytes # (A) 1.42 10*3/uL (0.20-1.00); Monocytes % (A) 4.2 %; Neutrophils # (A) 30.77 10*3/uL (1.80-7.70); Neutrophils % (A) 90.7 %; Platelet Count 262 10*3/uL (140-440); RBC 3.55 10*6/uL (4.10-5.20); RDW 12.4 % (11.5-14.5); WBC 33.95 10*3/uL (4.50-10.00)
[2025-01-22 17:44] LABS: ALT 16 U/L (4-34); AST 21 U/L (14-36); African American GFR (CKD) 82 (>60 ml/min/1.73 sqM); Alkaline Phosphatase 61 U/L (38-126); Amylase 49 U/L (30-110); Anion Gap 8 mmol/L; Blood Urea Nitrogen 28 mg/dL (7-17); Carbon Dioxide 25 mmol/L (22-30); Chloride 104 mmol/L (98-107); Glucose 140 mg/dL (74-99); Lipase 40 U/L (23-300); Non-African American GFR(CKD) 71 (>60 ml/min/1.73 sqM); Sodium 137 mmol/L (137-145); Total Protein 6.9 g/dL (6.3-8.2)
[2025-01-22] MEDS: PIPERACILLIN-TAZOBACTAM 3.375 GM in SODIUM CHLORIDE 0.9% 100 ML IVPB STA (19:34)
[2025-01-22] MEDS ORDERED: RX INFO: IV CONTRAST WAS GIVEN 1 EACH MISC MISCELLANE PRN (19:45)
[2025-01-22] MEDS ORDERED: NALOXONE 0.4 MG/ML 1 ML VIAL IV PRN (20:05)
--- NOTE | 2025-01-22 20:43 | XR ---
EXAMINATION TYPE: XR chest 2V DATE OF EXAM: 01/22/2025 7:57 PM COMPARISON: Chest radiographs from 01/13/2010. CLINICAL INDICATION: Female, 74 years old with history of Right lateral chest pleuritic pain; [facility] TECHNIQUE: XR chest 2V Frontal and lateral views of the chest. FINDINGS: Lungs/Pleura: Consolidation of the right middle lobe. There is no evidence of pleural effusion, focal consolidation, or pneumothorax. Pulmonary vascularity: Unremarkable. Heart/mediastinum: Cardiomediastinal silhouette is unremarkable. Musculoskeletal: No acute osseous pathology. Other findings: None Lines/Tubes: Left chest wall [id number] with tip terminating near the superior vena cava. IMPRESSION: Right middle lobe pneumonia [facility], , 01/22/2025 8:41 PM
[2025-01-22] MEDS: SODIUM CHLORIDE 0.9% 1,000 ML IV SCH (22:06)
[2025-01-22] MEDS: LETROZOLE 2.5 MG TAB PO SCH (22:10)
[2025-01-22] MEDS: FAMOTIDINE 20 MG TAB PO SCH (22:10)
[2025-01-22] MEDS: AMOXIC-POT CLAV 875-125MG 1 EACH TAB PO STA ×2 (22:33→22:35)
[2025-01-22] MEDS: AZITHROMYCIN 500 MG TAB PO STA (22:35)
--- NOTE | 2025-01-22 23:03 | CT ---
EXAMINATION TYPE: CT ChestAbdPelvis w con DATE OF EXAM: 01/22/2025 9:59 PM COMPARISON: 06/13/2023. CLINICAL INDICATION: Female, 74 years old with history of RUQ, flank pain with extremely elevated minerva kocytos; [facility], pt sent in from Urgent care for c/o abdominal, pt having RUQ pain with n/v that started last night Technique: CT ChestAbdPelvis w con; Multiple axial images were obtained. Two-dimensional coronal and sagittal reconstructions were obtained. Contrast used:100 mL of Isovue 300 with IV Contrast, (None if empty) Oral contrast used: without Oral Contrast CT DLP: mGycm, Automated exposure control for dose reduction was used. Findings: CHEST: LUNGS/ PLEURA: Consolidation changes predominantly in the right middle lobe. No pneumothorax and no p leural effusions identified. AIRWAY: Patent and unremarkable. HEART: Size within normal limits. No significant coronary artery calcifications. MEDIASTINUM: No gross evidence of adenopathy. Small hiatal hernia. VASCULATURE: No aortic aneurysm. Chest wall Gmioco-k-Rqpe tip not well identified in the high densit y injected left shoulder vasculature. MUSCULOSKELETAL: Mild disc degeneration changes are present throughout the thoracolumbar spine. SOFT TISSUES/LYMPH NODES: Unremarkable. LOWER NECK: No significant findings. ABDOMEN: ABDOMEN LIVER: Unremarkable GALLBLADDER AND BILE DUCTS: Thickened gallbladder wall with gallstones present. Morris measuring up to 7 mm. PANCREAS: Unremarkable. SPLEEN: Unremarkable. ADRENAL GLANDS: Unremarkable. KIDNEYS AND URETERS: No evidence of hydronephrosis or obstructing renal calculus. The ureters are unr emarkable. Nonobstructing right renal calculus measuring 3 mm. No left renal calculi. PELVIS BLADDER: Unremarkable REPRODUCTIVE: The uterus is surgically absent. ABDOMEN & PELVIS STOMACH AND BOWEL: No evidence of bowel obstruction. Surgical clips in the upper abdomen PERITONEUM/RETROPERITONEUM: No evidence of pneumoperitoneum or free fluid. VASCULATURE: No evidence of aortic aneurysm. MUSCULOSKELETAL: No acute osseous abnormalities. Moderate disc degeneration changes are present throu ghout the thoracolumbar spine. LYMPH NODES: No gross evidence for lymphadenopathy. SOFT TISSUE/ABDOMINAL WALL: Unremarkable IMPRESSION: 1. Multifocal pneumonia pneumonia predominantly in the right middle lobe. 2. Cholelithiasis without evidence for gallbladder wall thickening. Correlate for signs and symptoms of acute cholecystitis. Findings mildly progressed from prior in 23 suggesting adenomyomatosis. Cons ider further evaluation with MRI with IV contrast. There was some wall thickening seen on 06/13/2023. 3. Small hiatal hernia. 4. Nonobstructing right renal calculus, Similar to prior. [facility], , 01/22/2025 11:01 PM
[2025-01-22] MEDS: cefTRIAXone 2 GM in DEXTROSE 5% IN WATER 50 ML IVPB ONE (23:53)
[2025-01-23] MEDS: lisinopriL 10 MG TAB PO SCH (00:21)
[2025-01-23] MEDS: cefTRIAXone 2 GM in DEXTROSE 5% IN WATER 50 ML IVPB ONE (00:59)
[2025-01-23 06:45] LABS: HCT 31.8 % (37.2-46.3); HGB 10.5 g/dL (12.0-15.0); MCH 31.7 pg (27.0-32.0); MCV 96.1 fL (80.0-97.0); Mean Platelet Volume 9.6 fL (9.5-12.2); Platelet Count 224 10*3/uL (140-440); RBC 3.31 10*6/uL (4.10-5.20); RDW 12.8 % (11.5-14.5); WBC 27.14 10*3/uL (4.50-10.00)
[2025-01-23 06:59] LABS: ALT 13 U/L (4-34); AST 21 U/L (14-36); African American GFR (CKD) 87 (>60 ml/min/1.73 sqM); Albumin 3.5 g/dL (3.5-5.0); Alkaline Phosphatase 65 U/L (38-126); Anion Gap 13 mmol/L; Blood Urea Nitrogen 26 mg/dL (7-17); Calcium 9.6 mg/dL (8.4-10.2); Carbon Dioxide 20 mmol/L (22-30); Chloride 106 mmol/L (98-107); Glucose 107 mg/dL (74-99); Non-African American GFR(CKD) 75 (>60 ml/min/1.73 sqM); Potassium 3.8 mmol/L (3.5-5.1); Sodium 139 mmol/L (137-145); Total Bilirubin 0.5 mg/dL (0.2-1.3); Total Protein 6.2 g/dL (6.3-8.2)
[2025-01-23 07:13] LABS: Band Neutrophils % 22 %; Lymphocytes # (M) 0.81 k/uL (1.0-4.8); Neutrophils # (M) 26.32 k/uL (1.3-7.7); Neutrophils % (M) 75 %; Nucleated Red Blood Cells 0 /100 WBC (0-0); Total Cells Counted 100
[2025-01-23] MEDS: CHOLECALCIFEROL 25 MCG (1000 IU) TABLET PO SCH (09:07)
[2025-01-23] MEDS: PIPERACILLIN-TAZOBACTAM 3.375 GM in SODIUM CHLORIDE 0.9% 100 ML IVPB SCH (09:07)
--- NOTE | 2025-01-23 10:04 | P.HPIM ---
History of Present Illness H&P Date: 01/23/25 Mary Bella is a 74-year-old female patient who presented to the emergency room with complaints of right upper quadrant pain patient reports that she started having symptoms yesterday with elevated temp and loose stools. Patient has a past medical history of gallstones, breast and ovarian cancer, GERD, essential hypertension and peripheral neuropathy. Testing in the emergency room revealed findings equivocal for acute cholecystitis could be related to chronic versus other etiologies nonobstructing right renal calculus. Chest x-ray completed showing right middle lobe pneumonia. CT scan of chest abdomen pelvis completed showing multifocal pneumonia, cholelithiasis without evidence for ga llbladder wall thickening correlate for signs and symptoms of acute cholecystitis findings mildly progressed from prior suggesting adenomyomatous. Consider further evaluation with MRI. Small hiatal hernia nonobstructing right renal calculus. Lab work completed showing white blood cell 33.95, hemoglobin 11.4, creatinine 0.82, bun 28. UA showing small amount of leukocyte Estrace. Amylase and lipase negative. Liver enzymes within normal limits. At this time patient will be admitted surgical services have been consulted for possible cholecystitis, infectious disease consulted for leukocytosis and pulmonary services consulted for pneumonia. Current vital signs temp 99.2, heart rate 100, respiratory rate 121/71 with pulse ox 97% on room air. Started on antibiotics, blood cultures ordered, influenza and stool for C. difficile ordered Review of Systems Please refer to HPI otherwise unremarkable Past Medical History Past Medical History: Cancer, Diabetes Mellitus, GERD/Reflux, Hypertension, Liver Disease Additional Past Medical History / Comment(s): past hx. hepatitis A as a baby, hx. right breast cancer 2009, ovarian cancer 2005-tx. w/chemo for both, diet controlled diabetic, peripheral neuropathy History of Any Multi-Drug Resistant Organisms: None Reported Past Surgical History: Breast Surgery, Hysterectomy, Tonsillectomy Additional Past Surgical History / Comment(s): americo. mastectomy, partial omentectomy, mediport insertion Past Anesthesia/Blood Transfusion Reactions: No Reported Reaction Past Psychological History: No Psychological Hx Reported Smoking Status: Never smoker Past Alcohol Use History: None Reported Past Drug Use History: None Reported - Past Family History Sister(s) Family Medical History: Cancer Additional Family Medical History / Comment(s): breast Mother Family Medical History: Deep Vein Thrombosis (DVT) Medications and Allergies Home Medications Medication Instructions Recorded Confirmed Type Baclofen [Lioresal] 10 mg PO BID 05/09/17 01/22/25 History Letrozole [Femara] 2.5 mg PO HS 05/09/17 01/22/25 History lisinopriL [Zestril] 10 mg PO HS 11/08/17 01/22/25 History Cholecalciferol [Vitamin D3 (25 25 mcg PO DAILY 01/27/22 01/22/25 History Mcg = 1000 Iu)] Ibuprofen [Motrin] 800 mg PO BID 01/27/22 01/22/25 History Famotidine [Pepcid] 40 mg PO HS 06/13/23 01/22/25 History Multivit with Calcium,Iron,Min 1 tab PO DAILY 01/22/25 01/22/25 History [Women's Multivitamin] Allergies Allergy/AdvReac Type Severity Reaction Status Date / Time duloxetine [From Cymbalta] Allergy Unknown Verified 01/22/25 20:04 pregabalin [From Lyrica] Allergy Unknown Verified 01/22/25 20:04 orange juice AdvReac Nausea & Verified 01/22/25 20:04 Vomiting & Diarrhea Physical Exam Vitals: Vital Signs Temp Pulse Pulse Resp BP BP Pulse Ox 01/23/25 08:01 99.2 F 100 121/71 97 01/23/25 02:22 98.8 F 81 16 111/66 94 L 01/23/25 02:00 81 16 01/22/25 22:07 98.7 F 85 18 112/67 94 L 01/22/25 17:39 100 18 101/63 95 01/22/25 14:57 98.4 F 118 H 16 125/76 96 Intake and Output 01/22/25 01/23/25 01/23/25 22:59 06:59 14:59 Other: Voiding Method Toilet # Voids 0 Weight 67.585 kg Head normocephalic Neck supple Lungs clear to auscultation bilaterally no wheezing or crackles Heart regular rate and rhythm S1-S2, no rub or gallop Abdomen is soft nontender nondistended positive bowel sounds no hepatosplenomegaly Extremities no edema Neuro alert and orientated to 3 Results CBC & Chem 7: 01/23/25 05:50 01/23/25 05:50 Labs: Abnormal Lab Results - Last 24 Hours (Table) 01/22/25 01/22/25 01/22/25 Range/Units 17:23 17:23 17:23 WBC 33.95 H (4.50-10.00) 10*3/uL RBC 3.55 L (4.10-5.20) 10*6/uL Hgb 11.4 L (12.0-15.0) g/dL Hct 33.1 L (37.2-46.3) % MCH 32.1 H (27.0-32.0) pg Immature Gran # 0.65 H (0.00-0.04) 10*3/uL Neutrophils # 30.77 H (1.80-7.70) 10*3/uL Neutrophils # (Manual) (1.3-7.7) k/uL Lymphocytes # 0.83 L (0.90-5.00) 10*3/uL Lymphocytes # (Manual) (1.0-4.8) k/uL Monocytes # 1.42 H (0.20-1.00) 10*3/uL Basophils # 0.14 H (0.00-0.10) 10*3/uL Carbon Dioxide (22-30) mmol/L BUN 28 H (7-17) mg/dL Glucose 140 H (74-99) mg/dL Total Protein (6.3-8.2) g/dL Urine Protein Trace H (Negative) Ur Leukocyte Esterase Small H (Negative) Urine WBC 16 H (0-5) /hpf Hyaline Casts 3 H (0-2) /lpf Urine Mucus Rare H (None) /hpf 01/23/25 01/23/25 Range/Units 05:50 05:50 WBC 27.14 H (4.50-10.00) 10*3/uL RBC 3.31 L (4.10-5.20) 10*6/uL Hgb 10.5 L (12.0-15.0) g/dL Hct 31.8 L (37.2-46.3) % MCH (27.0-32.0) pg Immature Gran # 0.88 H (0.00-0.04) 10*3/uL Neutrophils # (1.80-7.70) 10*3/uL Neutrophils # (Manual) 26.32 H (1.3-7.7) k/uL Lymphocytes # (0.90-5.00) 10*3/uL Lymphocytes # (Manual) 0.81 L (1.0-4.8) k/uL Monocytes # (0.20-1.00) 10*3/uL Basophils # (0.00-0.10) 10*3/uL Carbon Dioxide 20 L (22-30) mmol/L BUN 26 H (7-17) mg/dL Glucose 107 H (74-99) mg/dL Total Protein 6.2 L (6.3-8.2) g/dL Urine Protein (Negative) Ur Leukocyte Esterase (Negative) Urine WBC (0-5) /hpf Hyaline Casts (0-2) /lpf Urine Mucus (None) /hpf Thrombosis Risk Factor Assmnt - Choose All That Apply Any of the Below Risk Factors Present?: Yes Each Factor Represents 1 point: Obesity (BMI >25), Swollen legs (current) Other Risk Factors: Yes Each Risk Factor Represents 2 Points: Age 61-74 years Each Risk Factor Represents 3 Points: Family history of DVT/PE Thrombosis Risk Factor Assessment Total Risk Factor Score: 7 Thrombosis Risk Factor Assessment Level: High Risk Assessment and Plan Assessment: 1. Right upper quadrant abdominal pain 2. Right lower lobe pneumonia. Pulmonary services consulted procalcitonin level ordered 3. Possible cholecystitis surgical services consulted 4. Leukocytosis secondary to above 5. History of breast cancer in 2009 with chemo and bilateral mastectomy 6. History of ovarian cancer in 2005 with chemo 7. History of GERD 8. History of essential hypertension DVT prophylaxis SCDs due to possible surgical intervention. GI prophylaxis Pepcid Surgical services, infectious disease and pulmonary services consulted Blood culture ordered Procalcitonin level ordered repeat labs ordered Time with Patient: Greater than 30 (Greater than 60% of the total time spent in counseling and coordination of care)
--- NOTE | 2025-01-23 11:17 | P.GSCN ---
History of Present Illness Consult date: 01/23/25 History of present illness: CHIEF COMPLAINT: Abdominal pain HISTORY OF PRESENT ILLNESS: This is a 74-year-old female who presented with right upper quadrant abdominal pain x 2 days. Patient reports having fevers. She has been nauseated. She denies any vomiting. She reports her stools have been soft. She does report cough with phlegm. She had a gallbladder out u ltrasound completed that showed evidence of acute cholecystitis with gallstones and positive Muñoz sign.. Nonspecific irregular gallbladder wall thickening dating back to 2022 could be related to chronic cholecystitis versus other etiology such as malignancy. Patient with a known history of gallstones. Past surgical history includes a hysterectomy. Patient also with a history of breast cancer status post mastectomy with chemo and ovarian cancer status post hysterectomy and chemo. Last chemo was in 2009. Patient with elevated white count on admission. Patient reports her nausea is better. Pain is less and she is requesting to eat. PAST MEDICAL HISTORY: See below PAST SURGICAL HISTORY: See below MEDICATIONS: See below ALLERGIES: See below SOCIAL HISTORY: No illicit drug use. REVIEW OF SYSTEMS: CONSTITUTIONAL: Denies fever or chills. HEENT: Denies blurred vision, vision changes, or eye pain. Denies hemoptysis CARDIOVASCULAR: Denies chest pain or pressure. RESPIRATORY: No shortness of breath. GASTROINTESTINAL: See HPI for pertinent findings HEMATOLOGIC: Denies bleeding disorders. GENITOURINARY: Denies any blood in urine or increased urinary frequency. SKIN: Denies pruitis. Denies rash. PHYSICAL EXAM: VITAL SIGNS: Reviewed GENERAL: Well-developed in no acute distress. HEENT: No sclera icterus. Extraocular movements grossly intact. Moist buccal mucosa. Head is atraumatic, normocephalic. No nasal drainage. ABDOMEN: Soft. Nondistended. Tenderness palpation to the right upper quadrant NEUROLOGIC: Alert and oriented. Cranial nerves II through XII grossly intact. LABORATORY DATA: WBC 33.95-27.14 Hgb 10.5 platelets 224 Sodium 139 potassium 3.8 creatinine 0.79 Lactic acid 2.0 LFTs normal Lipase 40 IMAGING: Gallbladder ultrasound reports acute cholecystitis with cholelithiasis. Positive Muñoz sign. Nonspecific irregular gallbladder wall thickening dating back to 2022 could be related to a chronic cholecystitis versus other etiologies such as malignancy. Nonobstructing right renal calculi Chest CT scan abdomen and pelvis multifocal pneumonia. Cholelithiasis with evidence of gallbladder wall thickening correlate for acute cholecystitis. Findings mildly progressed from prior 2022 suggesting adenomyomatosis. Small hiatal hernia. Nonobstructing right renal calculi. ASSESSMENT: 1. Acute cholecystitis. Possible chronic cholecystitis. Imaging reporting acute cholecystitis with cholelithiasis. Positive Muñoz sign. Gallbladder wall thickening and possible adenomyomatosis and possible chronic cholecystitis 2. Leukocytosis 3. Pneumonia PLAN: - Patient scheduled for Robotic cholecystectomy tomorrow, 01/24/[address] Godinez -Continue antibiotics - Consult cardiology service for cardiac risk assessment - 2D echo ordered - Okay for low-fat diet today and n.p.o. after midnight - Consult infectious disease regarding leukocytosis - Continue antibiotics - Check influenza due to cough and elevated WBC Physician Transit Clerk note has been reviewed by physician. Signing provider agrees with the documented findings, assessment, and plan of care. Past Medical History Past Medical History: Cancer, Diabetes Mellitus, GERD/Reflux, Hypertension, Liver Disease Additional Past Medical History / Comment(s): past hx. hepatitis A as a baby, hx. right breast cancer 2009, ovarian cancer 2005-tx. w/chemo for both, diet controlled diabetic, peripheral neuropathy History of Any Multi-Drug Resistant Organisms: None Reported Past Surgical History: Breast Surgery, Hysterectomy, Tonsillectomy Additional Past Surgical History / Comment(s): americo. mastectomy, partial omentectomy, mediport insertion Past Anesthesia/Blood Transfusion Reactions: No Reported Reaction Past Psychological History: No Psychological Hx Reported Smoking Status: Never smoker Past Alcohol Use History: None Reported Past Drug Use History: None Reported - Past Family History Sister(s) Family Medical History: Cancer Additional Family Medical History / Comment(s): breast Mother Family Medical History: Deep Vein Thrombosis (DVT) Medications and Allergies Home Medications Medication Instructions Recorded Confirmed Type Baclofen [Lioresal] 10 mg PO BID 05/09/17 01/22/25 History Letrozole [Femara] 2.5 mg PO HS 05/09/17 01/22/25 History lisinopriL [Zestril] 10 mg PO HS 11/08/17 01/22/25 History Cholecalciferol [Vitamin D3 (25 25 mcg PO DAILY 01/27/22 01/22/25 History Mcg = 1000 Iu)] Ibuprofen [Motrin] 800 mg PO BID 01/27/22 01/22/25 History Famotidine [Pepcid] 40 mg PO HS 06/13/23 01/22/25 History Multivit with Calcium,Iron,Min 1 tab PO DAILY 01/22/25 01/22/25 History [Women's Multivitamin] Allergies Allergy/AdvReac Type Severity Reaction Status Date / Time duloxetine [From Cymbalta] Allergy Unknown Verified 01/22/25 20:04 pregabalin [From Lyrica] Allergy Unknown Verified 01/22/25 20:04 orange juice AdvReac Nausea & Verified 01/22/25 20:04 Vomiting & Diarrhea Surgical - Exam Vital Signs Temp Pulse Resp BP Pulse Ox 98.4 F 118 H 16 125/76 96 01/22/25 14:57 01/22/25 14:57 01/22/25 14:57 01/22/25 14:57 01/22/25 14:57 Results - Labs 01/23/25 05:50 01/23/25 05:50 Abnormal Lab Results - Last 24 Hours (Table) 01/22/25 01/22/25 01/22/25 Range/Units 17:23 17:23 17:23 WBC 33.95 H (4.50-10.00) 10*3/uL RBC 3.55 L (4.10-5.20) 10*6/uL Hgb 11.4 L (12.0-15.0) g/dL Hct 33.1 L (37.2-46.3) % MCH 32.1 H (27.0-32.0) pg Immature Gran # 0.65 H (0.00-0.04) 10*3/uL Neutrophils # 30.77 H (1.80-7.70) 10*3/uL Neutrophils # (Manual) (1.3-7.7) k/uL Lymphocytes # 0.83 L (0.90-5.00) 10*3/uL Lymphocytes # (Manual) (1.0-4.8) k/uL Monocytes # 1.42 H (0.20-1.00) 10*3/uL Basophils # 0.14 H (0.00-0.10) 10*3/uL Carbon Dioxide (22-30) mmol/L BUN 28 H (7-17) mg/dL Glucose 140 H (74-99) mg/dL Total Protein (6.3-8.2) g/dL Urine Protein Trace H (Negative) Ur Leukocyte Esterase Small H (Negative) Urine WBC 16 H (0-5) /hpf Hyaline Casts 3 H (0-2) /lpf Urine Mucus Rare H (None) /hpf 01/23/25 01/23/25 Range/Units 05:50 05:50 WBC 27.14 H (4.50-10.00) 10*3/uL RBC 3.31 L (4.10-5.20) 10*6/uL Hgb 10.5 L (12.0-15.0) g/dL Hct 31.8 L (37.2-46.3) % MCH (27.0-32.0) pg Immature Gran # 0.88 H (0.00-0.04) 10*3/uL Neutrophils # (1.80-7.70) 10*3/uL Neutrophils # (Manual) 26.32 H (1.3-7.7) k/uL Lymphocytes # (0.90-5.00) 10*3/uL Lymphocytes # (Manual) 0.81 L (1.0-4.8) k/uL Monocytes # (0.20-1.00) 10*3/uL Basophils # (0.00-0.10) 10*3/uL Carbon Dioxide 20 L (22-30) mmol/L BUN 26 H (7-17) mg/dL Glucose 107 H (74-99) mg/dL Total Protein 6.2 L (6.3-8.2) g/dL Urine Protein (Negative) Ur Leukocyte Esterase (Negative) Urine WBC (0-5) /hpf Hyaline Casts (0-2) /lpf Urine Mucus (None) /hpf Diabetes panel 01/22/25 01/23/25 Range/Units 17:23 05:50 Sodium 137 139 (137-145) mmol/L Potassium 4.0 3.8 (3.5-5.1) mmol/L Chloride 104 106 (98-107) mmol/L Carbon Dioxide 25 20 L (22-30) mmol/L BUN 28 H 26 H (7-17) mg/dL Creatinine 0.82 0.79 (0.52-1.04) mg/dL Glucose 140 H 107 H (74-99) mg/dL Calcium 10.0 9.6 (8.4-10.2) mg/dL AST 21 21 (14-36) U/L ALT 16 13 (4-34) U/L Alkaline Phosphatase 61 65 (38-126) U/L Total Protein 6.9 6.2 L (6.3-8.2) g/dL Albumin 4.0 3.5 (3.5-5.0) g/dL Calcium panel 01/22/25 01/23/25 Range/Units 17:23 05:50 Calcium 10.0 9.6 (8.4-10.2) mg/dL Albumin 4.0 3.5 (3.5-5.0) g/dL Pituitary panel 01/22/25 01/23/25 Range/Units 17:23 05:50 Sodium 137 139 (137-145) mmol/L Potassium 4.0 3.8 (3.5-5.1) mmol/L Chloride 104 106 (98-107) mmol/L Carbon Dioxide 25 20 L (22-30) mmol/L BUN 28 H 26 H (7-17) mg/dL Creatinine 0.82 0.79 (0.52-1.04) mg/dL Glucose 140 H 107 H (74-99) mg/dL Calcium 10.0 9.6 (8.4-10.2) mg/dL Adrenal panel 01/22/25 01/23/25 Range/Units 17:23 05:50 Sodium 137 139 (137-145) mmol/L Potassium 4.0 3.8 (3.5-5.1) mmol/L Chloride 104 106 (98-107) mmol/L Carbon Dioxide 25 20 L (22-30) mmol/L BUN 28 H 26 H (7-17) mg/dL Creatinine 0.82 0.79 (0.52-1.04) mg/dL Glucose 140 H 107 H (74-99) mg/dL Calcium 10.0 9.6 (8.4-10.2) mg/dL Total Bilirubin 1.0 0.5 (0.2-1.3) mg/dL AST 21 21 (14-36) U/L ALT 16 13 (4-34) U/L Alkaline Phosphatase 61 65 (38-126) U/L Total Protein 6.9 6.2 L (6.3-8.2) g/dL Albumin 4.0 3.5 (3.5-5.0) g/dL
--- NOTE | 2025-01-23 12:07 | CA ---
Transthoracic Echo Report Name: Kim Bella Age: 74 Gender: F : 1950 Exam Date: 01/23/2025 08:47 Exam Location: [facility] Ht (in): 64 Wt (lb): 149 Ordering Physician: Mabel Kahn Attending/Referring Phys: [employer] Roaster Helper Sho Kaur RDCS Procedure CPT: Indications: check EF Cardiac Hx: Technical Quality: Good Contrast 1: Total Dose (mL): Contrast 2: Total Dose (mL): MEASUREMENTS (Male / Female) Normal Values 2D ECHO LV Diastolic Diameter PLAX 3.9 cm 4.2 - 5.9 / 3.9 - 5.3 cm LV Systolic Diameter PLAX 2.4 cm IVS Diastolic Thickness 0.7 cm 0.6 - 1.0 / 0.6 - 0.9 cm LVPW Diastolic Thickness 0.8 cm 0.6 - 1.0 / 0.6 - 0.9 cm LV Relative Wall Thickness 0.4 RV Internal Dim ED PLAX 2.1 cm LA Systolic Diameter LX 3.8 cm 3.0 - 4.0 / 2.7 - 3.8 cm LV Diastolic Volume MOD BP 53.5 cm??? 67 - 155 / 56 - 104 cm??? LV Systolic Volume MOD BP 21.0 cm??? 22 - 58 / 19 - 49 cm??? LV Ejection Fraction MOD BP 60.8 % >= 55 % LV Cardiac Index MOD BP 1868.1 cm???/min???m??? LV Diastolic Volume MOD 4C 48.3 cm??? LV Systolic Volume MOD 4C 17.7 cm??? LV Ejection Fraction MOD 4C 63.3 % LV Cardiac Index MOD 4C 1752.8 cm???/min???m??? LV Diastolic Length 4C 6.4 cm LV Systolic Length 4C 5.6 cm LV Diastolic Volume MOD 2C 57.3 cm??? LV Systolic Volume MOD 2C 24.9 cm??? LV Ejection Fraction MOD 2C 56.6 % LV Cardiac Index MOD 2C 1860.8 cm???/min???m??? LV Diastolic Length 2C 6.7 cm LV Systolic Length 2C 5.5 cm M-MODE Aortic Root Diameter MM 2.5 cm LA Systolic Diameter MM 3.3 cm LA Ao Ratio MM 1.3 AV Cusp Separation MM 1.4 cm DOPPLER Mitral E Point Velocity 100.9 cm/s Mitral A Point Velocity 114.4 cm/s Mitral E to A Ratio 0.9 MV Deceleration Time 229.7 ms MV E' Velocity 11.6 cm/s Mitral E to MV E' Ratio 8.7 TR Peak Velocity 282.1 cm/s TR Peak Gradient 31.8 mmHg Right Atrial Pressure 5.0 mmHg Pulmonary Artery Systolic Pressu 36.8 mmHg Right Ventricular Systolic Press 36.8 mmHg FINDINGS Left Ventricle Left ventricular ejection fraction is estimated at 55-60 %. Normal left ventricular systolic function with no obvious regional wall motion abnormalities. Left ventricular cavity size normal. Left ventricular wall thickness normal. Right Ventricle Normal right ventricular size and function. Mild pulmonary hypertension. Right Atrium Normal right atrial size. Left Atrium Normal left atrial size. Mitral Valve Structurally normal mitral valve. Mild mitral regurgitation. No mitral stenosis. Aortic Valve Trileaflet aortic valve. No aortic valve stenosis or regurgitation. Tricuspid Valve Structurally normal tricuspid valve. Mild tricuspid regurgitation. No tricuspid stenosis. Pulmonic Valve Pulmonic valve not well visualized. Trace pulmonic regurgitation. No pulmonic stenosis. Pericardium No pericardial or pleural effusion. Aorta Normal size aortic root and proximal ascending aorta. CONCLUSIONS Normal LV size and systolic function. Mild aortic valve sclerosis. Mild mitral and tricuspid regurgitation. No significant pulmonary hypertension. No pericardial effusion Previewed by: Dr. Moris Olivier MD (Electronically Signed) Final Date: 23 Jan 2025 12:06
--- NOTE | 2025-01-23 12:19 | P.CNPUL ---
History of Present Illness Consult date: 01/23/25 Requesting physician: Ayaka Friedman Reason for consult: cough, pneumonia, abnormal CXR/CT Chief complaint: Pneumonia. History of present illness: Pulmonary consult dated January 23, 2025. This is a 74-year-old female who came in from an outside hospital, with abdominal pain, in the right upper quadrant, as well as some nausea, fever, diarrhea, and cough. The patient was apparently evaluated, and thought to have acute cholecystitis, and we were asked to see the patient, because the plans are for her to go to surgery tomorrow. The chest x-ray apparently showed a possible right-sided infiltrate, potentially consistent with pneumonia. The patient has been coughing. She is not producing any phlegm. She does have a history of breast cancer, and ovarian cancer. She states that neither cancer is currently active. Current laboratory data includes a white count of 27.1, hemoglobin 10.5, hematocrit 31.8, and a platelet count of 224,000. Sodium 139, potassium 3.8, chlorides 106, CO2 20, anion gap 13, BUN 26, creatinine 0.79. Glucose is 107. Screen for influenza A and B, were negative. Gallbladder ultrasound shows possible acute cholecystitis with cholelithiasis. Chest x-ray suggested possible right middle lobe pneumonia. CT scan of the chest abdomen and pelvis, shows a multifocal pneumonia predominantly in the right middle lobe, cholelithiasis with evidence for gallbladder wall thickening, and possible acute cholecystitis, small hiatal hernia, and nonobstructing right renal calculus. Currently, the patient is on room air. No respiratory distress. The patient is currently on Zosyn. Review of Systems REVIEW OF SYSTEMS: CONSTITUTIONAL: [Negative.] NEUROLOGIC: [ Negative.] HEENT: [ Negative.] CARDIAC: [Negative.] PULMONARY: Dry nonproductive cough. GI: Right upper quadrant abdominal pain, nausea, diarrhea, vomiting. : [Negative.] RHEUMATOLOGIC: [ Negative.] IMMUNOLOGIC: [ Negative.] ENDOCRINE: [Negative. ] DERMATOLOGIC: [Negative.] Past Medical History Past Medical History: Cancer, Diabetes Mellitus, GERD/Reflux, Hypertension, Liver Disease Additional Past Medical History / Comment(s): past hx. hepatitis A as a baby, hx. right breast cancer 2009, ovarian cancer 2005-tx. w/chemo for both, diet controlled diabetic, peripheral neuropathy History of Any Multi-Drug Resistant Organisms: None Reported Past Surgical History: Breast Surgery, Hysterectomy, Tonsillectomy Additional Past Surgical History / Comment(s): americo. mastectomy, partial omentectomy, mediport insertion Past Anesthesia/Blood Transfusion Reactions: No Reported Reaction Past Psychological History: No Psychological Hx Reported Smoking Status: Never smoker Past Alcohol Use History: None Reported Past Drug Use History: None Reported - Past Family History Sister(s) Family Medical History: Cancer Additional Family Medical History / Comment(s): breast Mother Family Medical History: Deep Vein Thrombosis (DVT) Medications and Allergies Home Medications Medication Instructions Recorded Confirmed Type Baclofen [Lioresal] 10 mg PO BID 05/09/17 01/22/25 History Letrozole [Femara] 2.5 mg PO HS 05/09/17 01/22/25 History lisinopriL [Zestril] 10 mg PO HS 11/08/17 01/22/25 History Cholecalciferol [Vitamin D3 (25 25 mcg PO DAILY 01/27/22 01/22/25 History Mcg = 1000 Iu)] Ibuprofen [Motrin] 800 mg PO BID 01/27/22 01/22/25 History Famotidine [Pepcid] 40 mg PO HS 06/13/23 01/22/25 History Multivit with Calcium,Iron,Min 1 tab PO DAILY 01/22/25 01/22/25 History [Women's Multivitamin] Allergies Allergy/AdvReac Type Severity Reaction Status Date / Time duloxetine [From Cymbalta] Allergy Unknown Verified 01/22/25 20:04 pregabalin [From Lyrica] Allergy Unknown Verified 01/22/25 20:04 orange juice AdvReac Nausea & Verified 01/22/25 20:04 Vomiting & Diarrhea Physical Exam Osteopathic Statement: *. No significant issues noted on an osteopathic structural exam other than those noted in the History and Physical/Consult. Vitals: Vital Signs Temp Pulse Pulse Resp BP BP Pulse Ox 01/23/25 08:01 99.2 F 100 121/71 97 01/23/25 02:22 98.8 F 81 16 111/66 94 L 01/23/25 02:00 81 16 01/22/25 22:07 98.7 F 85 18 112/67 94 L 01/22/25 17:39 100 18 101/63 95 01/22/25 14:57 98.4 F 118 H 16 125/76 96 Intake and Output 01/22/25 01/23/25 01/23/25 22:59 06:59 14:59 Other: Voiding Method Toilet # Voids 0 Weight 67.585 kg No acute distress, oriented 3. No respiratory distress. Currently on room air. HEENT examination is grossly unremarkable. Mucous membranes are moist. No oral lesions. Neck supple. Full range of motion. No adenopathy thyromegaly or neck vein distention. Cardiovascular examination reveals regular rhythm rate. S1-S2 normal. No S3 or S4. No discernible murmur noted. Lungs reveal minimal scattered rhonchi. No wheezes or crackles. Breath sounds equal. Abdomen reveals mild tenderness, right upper quadrant. Bowel sounds are noted. No masses. Extremities are intact. No cyanosis clubbing or edema. Skin is without rash or lesion. Neurologic examination is brief but nonfocal. Results - Laboratory Findings CBC and BMP: 01/23/25 05:50 01/23/25 05:50 Abnormal lab findings: Abnormal Labs 01/22/25 01/22/25 01/22/25 17:23 17:23 17:23 WBC 33.95 H RBC 3.55 L Hgb 11.4 L Hct 33.1 L MCH 32.1 H Immature Gran # 0.65 H Neutrophils # 30.77 H Neutrophils # (Manual) Lymphocytes # 0.83 L Lymphocytes # (Manual) Monocytes # 1.42 H Basophils # 0.14 H Carbon Dioxide BUN 28 H Glucose 140 H Total Protein Urine Protein Trace H Ur Leukocyte Esterase Small H Urine WBC 16 H Hyaline Casts 3 H Urine Mucus Rare H 01/23/25 01/23/25 05:50 05:50 WBC 27.14 H RBC 3.31 L Hgb 10.5 L Hct 31.8 L MCH Immature Gran # 0.88 H Neutrophils # Neutrophils # (Manual) 26.32 H Lymphocytes # Lymphocytes # (Manual) 0.81 L Monocytes # Basophils # Carbon Dioxide 20 L BUN 26 H Glucose 107 H Total Protein 6.2 L Urine Protein Ur Leukocyte Esterase Urine WBC Hyaline Casts Urine Mucus - Diagnostic Findings Chest x-ray: image reviewed CT scan - chest: image reviewed Assessment and Plan Assessment: Right upper quadrant abdominal pain, secondary to acute cholecystitis, with cholelithiasis. Possible right middle lobe pneumonia. History of breast cancer. History of ovarian cancer. History of diabetes mellitus. History of hypertension. History of gastroesophageal reflux disease. Lifelong non-smoker. Multiple other medical problems and comorbidities. Plan: Plan dated January 2025. The patient is seen today in the observation unit, room 155. The patient will likely go to the operating room tomorrow for her acute cholecystitis with cholelithiasis. She may also have a right middle lobe pneumonia. She has a dry cough. She has no fever or chills. The patient appears stable from the respiratory standpoint. She is on Zosyn. From our standpoint, as long as the patient has an uneventful night, the patient can go to the operating room tomorrow for a cholecystectomy. We will continue to follow along. We do recommend the incentive spirometer. This is especially important after surgery. Additional recommendations and suggestions are forthcoming. Dictation was produced using [employer] dictation software. Please excuse any grammatical, word or spelling errors. Time with Patient: Greater than 30
--- NOTE | 2025-01-23 12:52 | P.CRDCN ---
History of Present Illness History of present illness: HISTORY OF PRESENT ILLNESS: This is a 74-year-old female with a past medical history significant for hypertension. Patient does not follow with a service desk director. We have been asked to see the patient in consultation for cardiac clearance. Patient examined at the bedside. Patient presented to the hospital for chief complaint of abdominal pain. Patient was found to have acute cholecystitis and is scheduled for surgical intervention tomorrow. Patient currently denies chest pain or pre ssure. She denies shortness of breath. Patient states she is usually active on an outpatient basis and has to walk up the stairs at her apartment complex for the laundry. She denies any chest pain or shortness of breath with exertion. Patient denies any known history of CAD. She states she has never had a stress test in the past. DIAGNOSTICS: - EKG reveals sinus mechanism with nonspecific ST-T wave changes. - Chest xray right middle lobe pneumonia. - Laboratory data: WBC 27.14. Hemoglobin 10.5. Platelet count 224. Sodium 139. Potassium 3.8. BUN 26. Creatinine 0.79. - Current home cardiac medications include lisinopril 10 mg at night - Echocardiogram obtained this admission reveals ejection fraction 55 to 60%, no obvious regional wall motion abnormalities, mild mitral regurgitation, no significant pulmonary hypertension. No pericardial effusion. REVIEW OF SYSTEMS: At the time of my exam: CONSTITUTIONAL: Denies fever or chills. HEENT: Denies blurred vision, vision changes, or eye pain. Denies hemoptysis CARDIOVASCULAR: Denies chest pain. Denies orthopnea. Denies PND. Denies palpitations RESPIRATORY: Denies shortness of breath. GASTROINTESTINAL: Denies abdominal pain. Denies nausea or vomiting. HEMATOLOGIC: Denies bleeding disorders. GENITOURINARY: Denies any blood in urine. SKIN: Denies pruitis. Denies rash. PHYSICAL EXAM: VITAL SIGNS: Reviewed. GENERAL: Well-developed in no acute distress. HEENT: Head is normocephalic. Pupils are equal, round. Sclerae anicteric. Mucous membranes of the mouth are moist. Neck supple. No JVD or thyromegaly LUNGS: Respirations even and unlabored. Lungs essentially clear to auscultation bilaterally. HEART: Regular rate and rhythm. S1 and S2 heard. 2/6 systolic ejection murmur at the base ABDOMEN: Soft. Nondistended. Nontender. EXTREMITIES: Normal range of motion. No clubbing or cyanosis. Peripheral pulses intact. No lower extremity edema NEUROLOGIC: Awake and alert. Oriented x 3. ASSESSMENT: Abdominal pain Acute cholecystitis Hypertension Possible pneumonia per chest x-ray Leukocytosis PLAN: 2D echo obtained and reviewed Continue home cardiac medications Patient is at moderate risk to proceed with surgery from a cardiac standpoint. However there are no absolute contraindications. Further recommendations pending patient course Nurse practitioner note has been reviewed by physician. Signing provider agrees with the documented findings, assessment, and plan of care documented by REPLENISHER as a scribe. Past Medical History Past Medical History: Cancer, Diabetes Mellitus, GERD/Reflux, Hypertension, Liver Disease Additional Past Medical History / Comment(s): past hx. hepatitis A as a baby, hx. right breast cancer 2009, ovarian cancer 2005-tx. w/chemo for both, diet controlled diabetic, peripheral neuropathy History of Any Multi-Drug Resistant Organisms: None Reported Past Surgical History: Breast Surgery, Hysterectomy, Tonsillectomy Additional Past Surgical History / Comment(s): americo. mastectomy, partial omentectomy, mediport insertion Past Anesthesia/Blood Transfusion Reactions: No Reported Reaction Past Psychological History: No Psychological Hx Reported Smoking Status: Never smoker Past Alcohol Use History: None Reported Past Drug Use History: None Reported - Past Family History Sister(s) Family Medical History: Cancer Additional Family Medical History / Comment(s): breast Mother Family Medical History: Deep Vein Thrombosis (DVT) Medications and Allergies Home Medications Medication Instructions Recorded Confirmed Type Baclofen [Lioresal] 10 mg PO BID 05/09/17 01/22/25 History Letrozole [Femara] 2.5 mg PO HS 05/09/17 01/22/25 History lisinopriL [Zestril] 10 mg PO HS 11/08/17 01/22/25 History Cholecalciferol [Vitamin D3 (25 25 mcg PO DAILY 01/27/22 01/22/25 History Mcg = 1000 Iu)] Ibuprofen [Motrin] 800 mg PO BID 01/27/22 01/22/25 History Famotidine [Pepcid] 40 mg PO HS 06/13/23 01/22/25 History Multivit with Calcium,Iron,Min 1 tab PO DAILY 01/22/25 01/22/25 History [Women's Multivitamin] Allergies Allergy/AdvReac Type Severity Reaction Status Date / Time duloxetine [From Cymbalta] Allergy Unknown Verified 01/22/25 20:04 pregabalin [From Lyrica] Allergy Unknown Verified 01/22/25 20:04 orange juice AdvReac Nausea & Verified 01/22/25 20:04 Vomiting & Diarrhea Physical Exam Vitals: Vital Signs Temp Pulse Pulse Resp BP BP Pulse Ox 01/23/25 08:01 99.2 F 100 121/71 97 01/23/25 02:22 98.8 F 81 16 111/66 94 L 01/23/25 02:00 81 16 01/22/25 22:07 98.7 F 85 18 112/67 94 L 01/22/25 17:39 100 18 101/63 95 01/22/25 14:57 98.4 F 118 H 16 125/76 96 Intake and Output 01/22/25 01/23/25 01/23/25 22:59 06:59 14:59 Other: Voiding Method Toilet Toilet # Voids 0 Weight 67.585 kg Results 01/23/25 05:50 01/23/25 05:50 Cardiac Enzymes 01/22/25 01/23/25 Range/Units 17:23 05:50 AST 21 21 (14-36) U/L CBC 01/22/25 01/23/25 Range/Units 17:23 05:50 WBC 33.95 H 27.14 H (4.50-10.00) 10*3/uL RBC 3.55 L 3.31 L (4.10-5.20) 10*6/uL Hgb 11.4 L 10.5 L (12.0-15.0) g/dL Hct 33.1 L 31.8 L (37.2-46.3) % Plt Count 262 224 (140-440) 10*3/uL Comprehensive Metabolic Panel 01/22/25 01/23/25 Range/Units 17:23 05:50 Sodium 137 139 (137-145) mmol/L Potassium 4.0 3.8 (3.5-5.1) mmol/L Chloride 104 106 (98-107) mmol/L Carbon Dioxide 25 20 L (22-30) mmol/L BUN 28 H 26 H (7-17) mg/dL Creatinine 0.82 0.79 (0.52-1.04) mg/dL Glucose 140 H 107 H (74-99) mg/dL Calcium 10.0 9.6 (8.4-10.2) mg/dL AST 21 21 (14-36) U/L ALT 16 13 (4-34) U/L Alkaline Phosphatase 61 65 (38-126) U/L Total Protein 6.9 6.2 L (6.3-8.2) g/dL Albumin 4.0 3.5 (3.5-5.0) g/dL Current Medications Generic Name Dose Route Start Last Admin Trade Name Freq PRN Reason Stop Dose Admin Acetaminophen 650 mg 01/22/25 23:30 Acetaminophen Tab 325 Mg Tab PO Q6HR PRN Mild Pain or Fever > 100.5 Cholecalciferol 25 mcg 01/23/25 09:00 01/23/25 09:07 Cholecalciferol 25 Mcg (1000 Iu) Tablet PO 25 mcg DAILY KELSI Administration Famotidine 40 mg 01/22/25 21:00 01/22/25 22:10 Famotidine 20 Mg Tab PO 40 mg HS KELSI Administration Sodium Chloride 1,000 mls @ 75 mls/hr 01/22/25 20:15 01/23/25 09:07 Saline 0.9% IV 75 mls/hr .[id number] KELSI Administration Piperacillin Sod/Tazobactam 100 mls @ 25 mls/hr 01/23/25 08:45 01/23/25 09:07 Sod 3.375 gm/ Sodium Chloride IVPB 25 mls/hr Q8HR KELSI Administration Protocol Ketorolac Tromethamine 15 mg 01/22/25 20:05 Ketorolac 15 Mg/Ml 1 Ml Vial IVP 01/25/25 20:06 Q6HR PRN Moderate Pain (Scale 4 to 6) Letrozole 2.5 mg 01/22/25 21:00 01/22/25 22:10 Letrozole 2.5 Mg Tab PO 2.5 mg HS KELSI Administration Lisinopril 10 mg 01/22/25 21:00 01/23/25 00:21 Lisinopril 10 Mg Tab PO Not Given HS KELSI Metoprolol Tartrate 25 mg 01/23/25 12:00 Metoprolol Tartrate 25 Mg Tab PO BID KELSI Miscellaneous Information 1 each 01/22/25 19:45 Rx Info: Iv Contrast Was Given 1 Each Misc MISCELLANE 01/24/25 19:46 DAILY PRN Per Protocol Morphine Sulfate 4 mg 01/22/25 20:05 Morphine Sulfate 4 Mg/Ml Syringe IV Q4HR PRN Severe Pain (Scale 7 to 10) Naloxone HCl 0.2 mg 01/22/25 20:05 Naloxone 0.4 Mg/Ml 1 Ml Vial IV Q2M PRN Opioid Reversal Ondansetron HCl 4 mg 01/22/25 20:05 Ondansetron 4 Mg/2 Ml Vial IVP Q8HR PRN Nausea And Vomiting Intake and Output 01/22/25 01/23/25 01/23/25 22:59 06:59 14:59 Other: Voiding Method Toilet Toilet # Voids 0 Weight 67.585 kg 01/23/25 05:50 01/23/25 05:50
[2025-01-23] MEDS: METOPROLOL TARTRATE 25 MG TAB PO SCH (14:59)
[2025-01-23] MEDS: ONDANSETRON 4 MG/2 ML VIAL IVP PRN (18:23)
[2025-01-24] MEDS: ACETAMINOPHEN TAB 325 MG TAB PO PRN (00:13)
--- NOTE | 2025-01-24 08:04 | P.CONS ---
History of Present Illness - Reason for Consult Consult date: 01/23/25 Leukocytosis Requesting physician: Mabel Kahn - Chief Complaint Right upper quadrant right lower chest pain x days - History of Present Illness Patient is a 74-year-old female with a past medical history significant for diabetes mellitus hypertension reflux right breast cancer as well as ovarian cancer presenting to the hospital for evaluation of right upper quadrant and right lower chest pain that apparently had been going on for the last few days patient describes the pain to be sharp moderate to severe intensity with associated nausea but no vomiting and did have an episode of diarrhea, patient also complaining of cough which is mild to moderate intensity but not bringing up any sputum with the symptoms the patient was evaluated on presentation to the hospital patient was afebrile she did have a low-grade fever of 99.2 F this morning patient was tachycardic but not hypotensive or hypoxic she did have a white count of 33.95 with a left shift creatinine 0.82 electrolytes has been normal liver enzymes are normal urine is mildly positive influenza testing was negative blood cultures obtained which are currently pending patient did have a gallbladder ultrasound findings equivocal for acute cholecystitis with cholelithiasis subsequently did have a CT of the chest abdominal pelvis multifocal pneumonia predominantly in the right middle lobe cholelithiasis with evidence of for gallbladder wall thickening patient was started on Zosyn infectious disease was consulted for further management of antibiotic therapy Review of Systems Positive point and negatives has been mentioned in the HPI, complete review of systems was performed and all other systems are negative Past Medical History Past Medical History: Cancer, Diabetes Mellitus, GERD/Reflux, Hypertension, Liver Disease Additional Past Medical History / Comment(s): past hx. hepatitis A as a baby, hx. right breast cancer 2009, ovarian cancer 2005-tx. w/chemo for both, diet controlled diabetic, peripheral neuropathy History of Any Multi-Drug Resistant Organisms: None Reported Past Surgical History: Breast Surgery, Hysterectomy, Tonsillectomy Additional Past Surgical History / Comment(s): americo. mastectomy, partial omentectomy, mediport insertion Past Anesthesia/Blood Transfusion Reactions: No Reported Reaction Past Psychological History: No Psychological Hx Reported Smoking Status: Never smoker Past Alcohol Use History: None Reported Past Drug Use History: None Reported - Past Family History Sister(s) Family Medical History: Cancer Additional Family Medical History / Comment(s): breast Mother Family Medical History: Deep Vein Thrombosis (DVT) Medications and Allergies Home Medications Medication Instructions Recorded Confirmed Type Baclofen [Lioresal] 10 mg PO BID 05/09/17 01/22/25 History Letrozole [Femara] 2.5 mg PO HS 05/09/17 01/22/25 History lisinopriL [Zestril] 10 mg PO HS 11/08/17 01/22/25 History Cholecalciferol [Vitamin D3 (25 25 mcg PO DAILY 01/27/22 01/22/25 History Mcg = 1000 Iu)] Ibuprofen [Motrin] 800 mg PO BID 01/27/22 01/22/25 History Famotidine [Pepcid] 40 mg PO HS 06/13/23 01/22/25 History Multivit with Calcium,Iron,Min 1 tab PO DAILY 01/22/25 01/22/25 History [Women's Multivitamin] Acetaminophen Tab [Tylenol Tab] 1,000 mg PO Q6HR PRN #30 tablet 01/26/25 Rx Amoxic-Pot Clav 500-125 mg 1 tab PO Q12HR 7 Days #14 tab 01/26/25 Rx [Augmentin 500-125 mg] Metoprolol Tartrate [Lopressor] 25 mg PO BID 30 Days #60 tab 01/26/25 Rx Simethicone [Gas-X] 125 mg PO AC-TID PRN #20 capsule 01/26/25 Rx Tamsulosin [Flomax] 0.4 mg PO PC-SUPPER 30 Days #30 cap 01/26/25 Rx Allergies Allergy/AdvReac Type Severity Reaction Status Date / Time duloxetine [From Cymbalta] Allergy Unknown Verified 01/24/25 16:06 pregabalin [From Lyrica] Allergy Unknown Verified 01/24/25 16:06 adhesive tape AdvReac Itching Verified 01/24/25 16:06 orange juice AdvReac Nausea & Verified 01/24/25 16:06 Vomiting & Diarrhea Physical Exam Vitals: Vital Signs Temp Pulse Pulse Resp BP BP Pulse Ox 01/23/25 08:01 99.2 F 100 121/71 97 01/23/25 02:22 98.8 F 81 16 111/66 94 L 01/23/25 02:00 81 16 01/22/25 22:07 98.7 F 85 18 112/67 94 L 01/22/25 17:39 100 18 101/63 95 01/22/25 14:57 98.4 F 118 H 16 125/76 96 Intake and Output 01/22/25 01/23/25 01/23/25 22:59 06:59 14:59 Other: Voiding Method Toilet Toilet # Voids 0 Weight 67.585 kg GENERAL DESCRIPTION: Elderly female lying in bed, no distress. No tachypnea or accessory muscle of respiration use. HEENT: Shows Pallor , no scleral icterus. Oral mucous membrane is dry. No pharyngeal erythema or thrush NECK: Trachea central, no thyromegaly. LUNGS: Unlabored breathing. Decreased breath sounds in the right base HEART: S1, S2, regular rate and rhythm. No loud murmur ABDOMEN: Soft, no tenderness , EXTREMITIES: No edema of feet. SKIN: No rash, no masses palpable. NEUROLOGICAL: The patient is awake, alert, oriented x3, mood and affect normal. Results CBC & Chem 7: 01/26/25 06:04 01/26/25 06:04 Labs: Abnormal Lab Results - Last 24 Hours (Table) 01/22/25 01/22/25 01/22/25 Range/Units 17:23 17:23 17:23 WBC 33.95 H (4.50-10.00) 10*3/uL RBC 3.55 L (4.10-5.20) 10*6/uL Hgb 11.4 L (12.0-15.0) g/dL Hct 33.1 L (37.2-46.3) % MCH 32.1 H (27.0-32.0) pg Immature Gran # 0.65 H (0.00-0.04) 10*3/uL Neutrophils # 30.77 H (1.80-7.70) 10*3/uL Neutrophils # (Manual) (1.3-7.7) k/uL Lymphocytes # 0.83 L (0.90-5.00) 10*3/uL Lymphocytes # (Manual) (1.0-4.8) k/uL Monocytes # 1.42 H (0.20-1.00) 10*3/uL Basophils # 0.14 H (0.00-0.10) 10*3/uL Carbon Dioxide (22-30) mmol/L BUN 28 H (7-17) mg/dL Glucose 140 H (74-99) mg/dL Total Protein (6.3-8.2) g/dL Urine Protein Trace H (Negative) Ur Leukocyte Esterase Small H (Negative) Urine WBC 16 H (0-5) /hpf Hyaline Casts 3 H (0-2) /lpf Urine Mucus Rare H (None) /hpf 01/23/25 01/23/25 Range/Units 05:50 05:50 WBC 27.14 H (4.50-10.00) 10*3/uL RBC 3.31 L (4.10-5.20) 10*6/uL Hgb 10.5 L (12.0-15.0) g/dL Hct 31.8 L (37.2-46.3) % MCH (27.0-32.0) pg Immature Gran # 0.88 H (0.00-0.04) 10*3/uL Neutrophils # (1.80-7.70) 10*3/uL Neutrophils # (Manual) 26.32 H (1.3-7.7) k/uL Lymphocytes # (0.90-5.00) 10*3/uL Lymphocytes # (Manual) 0.81 L (1.0-4.8) k/uL Monocytes # (0.20-1.00) 10*3/uL Basophils # (0.00-0.10) 10*3/uL Carbon Dioxide 20 L (22-30) mmol/L BUN 26 H (7-17) mg/dL Glucose 107 H (74-99) mg/dL Total Protein 6.2 L (6.3-8.2) g/dL Urine Protein (Negative) Ur Leukocyte Esterase (Negative) Urine WBC (0-5) /hpf Hyaline Casts (0-2) /lpf Urine Mucus (None) /hpf Assessment and Plan (1) Sepsis Current Visit: Yes Status: Acute Code(s): A41.9 - SEPSIS, UNSPECIFIED ORGANISM SNOMED Code(s): 58520790 (2) Cholecystitis Current Visit: Yes Status: Acute Code(s): K81.9 - CHOLECYSTITIS, UNSPECIFIED SNOMED Code(s): 65652353 (3) Pneumonia Current Visit: Yes Status: Acute Code(s): J18.9 - PNEUMONIA, UNSPECIFIED ORGANISM SNOMED Code(s): 726089664 Plan: 1patient presented to hospital with sepsis in this patient who did have significant elevated white count tachycardia low-grade fever meeting currently for SIRS/sepsis source is likely right lower lobe pneumonia and concerning for cholecystitis on the basis of the CT findings 2-try to obtain a sputum for Gram stain culture check inflammatory markers 3-patient will be empirically treated with Zosyn while waiting for the workup to be completed We will follow on clinical condition and cultures to further adjust medication if needed Thank you for this consultation we will follow the patient along with you Dictation was produced using [employer] dictation software. please excuse any grammatical, word or spelling errors. Time with Patient: Greater than 30
[2025-01-24 08:19] LABS: Basophils # (A) 0.04 X 10*3/uL (0.00-0.10); Basophils % (A) 0.2 %; Eosinophils # (A) 0.27 X 10*3/uL (0.04-0.35); Eosinophils % (A) 1.4 %; HCT 31.2 % (37.2-46.3); Lymphocytes # (A) 1.22 X 10*3/uL (0.90-5.00); Lymphocytes % (A) 6.2 %; MCH 31.3 pg (27.0-32.0); MCHC 32.1 g/dL (32.0-37.0); MCV 97.8 FL (80.0-97.0); Mean Platelet Volume 10.4 FL (9.5-12.2); Monocytes % (A) 3.5 %; NRBC Per 100 WBC 0 X 10*3/uL (0.00-0.01); Neutrophils # (A) 17.37 X 10*3/uL (1.80-7.70); Neutrophils % (A) 87.8 %; Platelet Count 239 X 10*3/uL (140-440); RBC 3.19 X 10*6/uL (4.10-5.20); RDW 12.9 % (11.5-14.5); WBC 19.78 X 10*3/uL (4.50-10.00)
[2025-01-24] MEDS: MORPHINE SULFATE 4 MG/ML SYRINGE IV PRN (08:21)
[2025-01-24 08:23] LABS: BUN/Creat Ratio 20.89 Ratio (12.00-20.00); Blood Urea Nitrogen 18.8 mg/dL (9.0-27.0); Chloride 109 mmol/L (96-109); Glucose 100 mg/dL (70-110); Potassium 3.8 mmol/L (3.5-5.5); Sodium 143 mmol/L (135-145)
[2025-01-24 08:24] LABS: ALT 12 U/L (8-44); AST 18 U/L (13-35); Albumin 3.4 g/dL (3.8-4.9); Albumin/Globulin Ratio 1.36 Ratio (1.60-3.17); Alkaline Phosphatase 67 U/L (41-126); Calcium 9.1 mg/dL (8.7-10.3); Carbon Dioxide 20.9 mmol/L (21.6-31.8); Globulin 2.5 g/dL (1.6-3.3); Total Bilirubin 0.4 mg/dL (0.3-1.2); Total Protein 5.9 g/dL (6.2-8.2)
--- NOTE | 2025-01-24 09:29 | P.PN ---
Subjective Progress Note Date: 01/24/25 Mary Bella is a 74-year-old female patient who presented to the emergency room with complaints of right upper quadrant pain patient reports that she started having symptoms yesterday with elevated temp and loose stools. Patient has a past medical history of gallstones, breast and ovarian cancer, GERD, essential hypertension and peripheral neuropathy. Testing in the emergency room revealed findings equivocal for acute cholecystitis could be related to chronic versus other etiologies nonobstructing right renal calculus. Chest x-ray completed showing right middle lobe pneumonia. CT scan of chest abdomen pelvis completed showing multifocal pneumonia, cholelithiasis without evidence for gallbladder wall thickening correlate for signs and symptoms of acute cholecystitis findings mildly progressed from prior suggesting adenomyomatous. Consider further evaluation with MRI. Small hiatal hernia nonobstructing right renal calculus. Lab work completed showing white blood cell 33.95, hemoglobin 11.4, creatinine 0.82, bun 28. UA showing small amount of leukocyte Estrace. Amylase and lipase negative. Liver enzymes within normal limits. At this time patient will be admitted surgical services have been consulted for possible cholecystitis, infectious disease consulted for leukocytosis and pulmonary services consulted for pneumonia. Current vital signs temp 99.2, heart rate 100, respiratory rate 121/71 with pulse ox 97% on room air. Started on antibiotics, blood cultures ordered, influenza and stool for C. difficile ordered On 01/24/2025 patient is alert and oriented x 3. Patient undergoing lap shaun today. White blood cell trending down to 19.78. Patient reports improvement. Current vital signs temp 98.6, heart rate 94, respiratory rate 17, blood pressure 132/75 with a pulse ox of 96% on room air. Patient remains on IV Zosyn. Cardiology, pulmonary, infectious disease and surgical services are all following. Patient denies chest pain or shortness of breath. Patient denies nausea vomiting or diarrhea. Patient denies any urinary burning or frequency Objective - Vital Signs Vital signs: Vital Signs Temp 98.6 F 01/24/25 07:53 Pulse 94 01/24/25 07:53 Resp 17 01/24/25 07:53 BP 132/75 01/24/25 07:53 Pulse Ox 96 01/24/25 07:53 FiO2 Intake & Output 01/23/25 01/24/25 01/24/25 18:59 06:59 18:59 Other: Voiding Method Toilet Toilet # Voids 3 1 - Exam Head normocephalic Neck supple Lungs clear to auscultation bilaterally no wheezing or crackles Heart regular rate and rhythm S1-S2, no rub or gallop Abdomen is soft nontender nondistended positive bowel sounds no hepatosplenomegaly Extremities no edema Neuro alert and orientated to 3 - Labs CBC & Chem 7: 01/24/25 04:48 01/24/25 04:48 Labs: Abnormal Lab Results - Last 24 Hours (Table) 01/22/25 01/24/25 01/24/25 Range/Units 17:23 04:48 04:48 WBC 19.78 H (4.50-10.00) X 10*3/uL RBC 3.19 L (4.10-5.20) X 10*6/uL Hgb 10.0 L (12.0-15.0) g/dL Hct 31.2 L (37.2-46.3) % MCV 97.8 H (80.0-97.0) FL Immature Gran # 0.18 H (0.00-0.04) X 10*3/uL Neutrophils # 17.37 H (1.80-7.70) X 10*3/uL Carbon Dioxide 20.9 L (21.6-31.8) mmol/L Anion Gap 13.10 H (4.00-12.00) mmol/L BUN/Creatinine Ratio 20.89 H (12.00-20.00) Ratio Total Protein 5.9 L (6.2-8.2) g/dL Albumin 3.4 L (3.8-4.9) g/dL Albumin/Globulin Ratio 1.36 L (1.60-3.17) Ratio Procalcitonin 2.32 H (0.02-0.50) ng/mL Microbiology - Last 24 Hours (Table) 01/22/25 17:23 Blood Culture - Preliminary Blood Assessment and Plan Assessment: 1. Right upper quadrant abdominal pain 2. Right lower lobe pneumonia. Pulmonary services consulted procalcitonin level ordered 3. Possible cholecystitis surgical services consulted 4. Leukocytosis secondary to above 5. History of breast cancer in 2009 with chemo and bilateral mastectomy 6. History of ovarian cancer in 2005 with chemo 7. History of GERD 8. History of essential hypertension DVT prophylaxis SCDs due to possible surgical intervention. GI prophylaxis Pepcid Surgical services, infectious disease and pulmonary services consulted Blood culture ordered Procalcitonin level ordered repeat labs ordered
--- NOTE | 2025-01-24 10:41 | P.PN ---
Subjective HISTORY OF PRESENT ILLNESS: This is a 74-year-old female with a past medical history significant for hypertension. 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 We have been asked to see the patient in consultation for cardiac clearance. Patient examined at the bedside. Patient presented to the hospital for chief complaint of abdominal pain. Patient was found to have acute cholecystitis and is scheduled for surgical intervention tomorrow. Patient currently denies chest pain or pressure. She denies shortness of breath. Patient states she is usually active on an outpatient basis and has to walk up the stairs at her apartment complex [facility]. She denies any chest pain or shortness of breath with exertion. Patient denies any known history of CAD. She states she has never had a stress test in the past. DIAGNOSTICS: - EKG reveals sinus mechanism with nonspecific ST-T wave changes. - Chest xray right middle lobe pneumonia. - Laboratory data: WBC 27.14. Hemoglobin 10.5. Platelet count 224. Sodium 139. Potassium 3.8. BUN 26. Creatinine 0.79. - Current home cardiac medications include lisinopril 10 mg at night - Echocardiogram obtained this admission reveals ejection fraction 55 to 60%, no obvious regional wall motion abnormalities, mild mitral regurgitation, no significant pulmonary hypertension. No pericardial effusion. 01/24/2025 Patient examined this morning at the bedside. Patient currently denies chest pain or pressure. She denies shortness of breath. Vital signs are stable. She is scheduled to undergo cholecystectomy today PHYSICAL EXAM: VITAL SIGNS: Reviewed. GENERAL: Well-developed in no acute distress. HEENT: Head is normocephalic. Pupils are equal, round. Sclerae anicteric. Mucous membranes of the mouth are moist. Neck supple. No JVD or thyromegaly LUNGS: Respirations even and unlabored. Lungs essentially clear to auscultation bilaterally. HEART: Regular rate and rhythm. S1 and S2 heard. 2/6 systolic ejection murmur at the base ABDOMEN: Soft. Nondistended. Nontender. EXTREMITIES: Normal range of motion. No clubbing or cyanosis. Peripheral pulses intact. No lower extremity edema NEUROLOGIC: Awake and alert. Oriented x 3. ASSESSMENT: Abdominal pain Acute cholecystitis Hypertension Possible pneumonia per chest x-ray Leukocytosis PLAN: 2D echo obtained and reviewed Continue home cardiac medications Patient is scheduled to undergo cholecystectomy today with general surgery Patient is at moderate risk to proceed with surgery from a cardiac standpoint. However there are no absolute contraindications. Further recommendations pending patient course Nurse practitioner note has been reviewed by physician. Signing provider agrees with the documented findings, assessment, and plan of care documented by REGIONAL OWNER OPERATOR TRUCK DRIVER as a scribe. Objective - Vital Signs Vital signs: Vital Signs Temp 98.1 F 01/24/25 00:10 Pulse 93 01/24/25 00:10 Resp 18 01/24/25 00:10 BP 131/79 01/24/25 00:10 Pulse Ox 94 L 01/24/25 00:10 FiO2 Intake & Output 01/23/25 01/24/25 01/24/25 18:59 06:59 18:59 Other: Voiding Method Toilet Toilet # Voids 3 1 - Labs CBC & Chem 7: 01/24/25 04:48 01/24/25 04:48 Labs: Abnormal Lab Results - Last 24 Hours (Table) 01/22/25 01/24/25 01/24/25 Range/Units 17:23 04:48 04:48 WBC 19.78 H (4.50-10.00) X 10*3/uL RBC 3.19 L (4.10-5.20) X 10*6/uL Hgb 10.0 L (12.0-15.0) g/dL Hct 31.2 L (37.2-46.3) % MCV 97.8 H (80.0-97.0) FL Immature Gran # 0.18 H (0.00-0.04) X 10*3/uL Neutrophils # 17.37 H (1.80-7.70) X 10*3/uL Carbon Dioxide 20.9 L (21.6-31.8) mmol/L Anion Gap 13.10 H (4.00-12.00) mmol/L BUN/Creatinine Ratio 20.89 H (12.00-20.00) Ratio Total Protein 5.9 L (6.2-8.2) g/dL Albumin 3.4 L (3.8-4.9) g/dL Albumin/Globulin Ratio 1.36 L (1.60-3.17) Ratio Procalcitonin 2.32 H (0.02-0.50) ng/mL Microbiology - Last 24 Hours (Table) 01/22/25 17:23 Blood Culture - Preliminary Blood
--- NOTE | 2025-01-24 11:13 | P.PN ---
Subjective Progress Note Date: 01/24/25 CHIEF COMPLAINT: Abdominal pain HISTORY OF PRESENT ILLNESS: The patient is a 74-year-old female with pre- existing history of breast cancer status post right mastectomy who reports a longstanding history of gallstones. She reports over several days of right upper quadrant abdominal pain. Her son is at bedside. Patient still reports pain this morning requiring Dilaudid pain medication. Patient also reports pain with deep breathing. ROS: Temperature 99.6. No new chest pain. No productive sputum PHYSICAL EXAM: VITAL SIGNS: Reviewed CONSTITUTIONAL: Well developed and in no acute distress. EYES: Conjuctivae without sclera icterus. Extraocular movements grossly intact. HEAD, EARS, NOSE, THROAT: Moist buccal mucosa. Head is atraumatic, normocephalic. Hears conversational speech. No nasal drainage. RESPIRATORY: Non-labored respirations and equal bilateral excursions. CARDIOVASCULAR: Palpable 2+ radial pulses. ABDOMEN: Tender right upper quadrant. No diffuse peritonitis. MUSCULOSKELETAL: No gross deformity of the lower extremities noted. No clubbing. No cyanosis. SKIN: Good skin turgor. Well perfused. NEUROLOGIC: Cranial nerves II through XII grossly intact. No focal or lateralizing signs. PSYCH: Appropriate affect. Alert and oriented to person, place and time. CLINICAL LABS: Reviewed. WBC down 33,000-19,000. Hemoglobin down 11.4-10.0. REPORT: Echocardiogram reviewed demonstrated ejection fraction 55 to 60% with normal left ventricular systolic function. No presence of aortic stenosis. ASSESSMENT: 1. Acute cholecystitis due to gallstones 2. Sepsis due to pneumonia and acute cholecystitis 3. History of breast cancer status postmastectomy 4. Right middle lobe lobar pneumonia 5. History of ovarian cancer. PLAN: 1. Patient is elevated for complications due to concurrent sepsis, lobar pneumonia and acute cholecystitis. Patient has been seen by multiple consultants including cardiology, pulmonary medicine 2. Patient's son at bedside for which postoperative recovery including treatment for pneumonia is advised. Also recommended continued antibiotics. 3. Patient presented with white count over 33,000 with risk of sepsis. Infectious disease consultation advised. 4. Benefits and risks of robotic cholecystectomy described for which she is elevated risk due to multiple comorbidities Dictation was produced using [employer] software. Please excuse any grammatical, word or spelling errors. Objective - Vital Signs Vital signs: Vital Signs Temp 98.6 F 05/09/25 07:53 Pulse 94 01/24/25 07:53 Resp 17 01/24/25 07:53 BP 132/75 01/24/25 07:53 Pulse Ox 96 01/24/25 07:53 FiO2 Intake & Output 01/23/25 01/24/25 01/24/25 18:59 06:59 18:59 Other: Voiding Method Toilet Toilet Toilet # Voids 3 1 - Labs CBC & Chem 7: 01/24/25 04:48 01/24/25 04:48 Labs: Abnormal Lab Results - Last 24 Hours (Table) 01/22/25 01/24/25 01/24/25 Range/Units 17:23 04:48 04:48 WBC 19.78 H (4.50-10.00) X 10*3/uL RBC 3.19 L (4.10-5.20) X 10*6/uL Hgb 10.0 L (12.0-15.0) g/dL Hct 31.2 L (37.2-46.3) % MCV 97.8 H (80.0-97.0) FL Immature Gran # 0.18 H (0.00-0.04) X 10*3/uL Neutrophils # 17.37 H (1.80-7.70) X 10*3/uL Carbon Dioxide 20.9 L (21.6-31.8) mmol/L Anion Gap 13.10 H (4.00-12.00) mmol/L BUN/Creatinine Ratio 20.89 H (12.00-20.00) Ratio Total Protein 5.9 L (6.2-8.2) g/dL Albumin 3.4 L (3.8-4.9) g/dL Albumin/Globulin Ratio 1.36 L (1.60-3.17) Ratio Procalcitonin 2.32 H (0.02-0.50) ng/mL Microbiology - Last 24 Hours (Table) 01/22/25 17:23 Blood Culture - Preliminary Blood
--- NOTE | 2025-01-24 13:10 | P.PN ---
Subjective Progress Note Date: 01/24/25 Principal diagnosis: Possible pneumonia. Pulmonary consult dated January 23, 2025. This is a 74-year-old female who came in from an outside hospital, with abdominal pain, in the right upper quadrant, as well as some nausea, fever, diarrhea, and cough. The patient was apparently evaluated, and thought to have acute cholecystitis, and we were asked to see the patient, because the plans are for her to go to surgery tomorrow. The chest x-ray apparently showed a possible right-sided infiltrate, potentially consistent with pneumonia. The patient has been coughing. She is not producing any phlegm. She does have a history of breast cancer, and ovarian cancer. She states that neither cancer is currently active. Current laboratory data includes a white count of 27.1, hemoglobin 10.5, hematocrit 31.8, and a platelet count of 224,000. Sodium 139, potassium 3.8, chlorides 106, CO2 20, anion gap 13, BUN 26, creatinine 0.79. Glucose is 107. Screen for influenza A and B, were negative. Gallbladder ultrasound shows possible acute cholecystitis with cholelithiasis. Chest x-ray suggested possible right middle lobe pneumonia. CT scan of the chest abdomen and pelvis, shows a multifocal pneumonia predominantly in the right middle lobe, cholelithiasis with evidence for gallbladder wall thickening, and possible acute cholecystitis, small hiatal hernia, and nonobstructing right renal calculus. Currently, the patient is on room air. No respiratory distress. The patient is currently on Zosyn. Progress note dated January 24, 2025. Pleasant 74-year-old female seen yesterday in consultation. We were consulted for possible right sided pneumonia. The patient came in with primarily right upper quadrant abdominal pain, was felt to have acute cholecystitis with cholelithiasis. Anyway, we were asked by the primary service, to clear her for surgery, which we did. She apparently is going to have a laparoscopic cholecystectomy today. She is seen today in room 467. She is on room air. She is getting saline at 75 cc an hour. She is on Zosyn empirically. White count was 19.8, hemoglobin 10, hematocrit 31.2, platelet count was normal. Sodium 143, potassium 3.8, chloride 109, CO2 21, BUN 19, and creatinine 0.9. Objective - Vital Signs Vital signs: Vital Signs Temp 98.6 F 01/24/25 07:53 Pulse 94 01/24/25 07:53 Resp 17 01/24/25 07:53 BP 132/75 01/24/25 07:53 Pulse Ox 96 01/24/25 07:53 FiO2 Intake & Output 01/23/25 01/24/25 01/24/25 18:59 06:59 18:59 Other: Voiding Method Toilet Toilet Toilet # Voids 3 1 - Exam No acute distress, oriented 3. No respiratory distress. Currently on room air. HEENT examination is grossly unremarkable. Mucous membranes are moist. No oral lesions. Neck supple. Full range of motion. No adenopathy thyromegaly or neck vein distention. Cardiovascular examination reveals regular rhythm rate. S1-S2 normal. No S3 or S4. No discernible murmur noted. Lungs reveal minimal scattered rhonchi. No wheezes or crackles. Breath sounds equal. Abdomen reveals mild tenderness, right upper quadrant. Bowel sounds are noted. No masses. Extremities are intact. No cyanosis clubbing or edema. Skin is without rash or lesion. Neurologic examination is brief but nonfocal. - Labs CBC & Chem 7: 01/24/25 04:48 01/24/25 04:48 Labs: Abnormal Lab Results - Last 24 Hours (Table) 01/22/25 01/24/25 01/24/25 Range/Units 17:23 04:48 04:48 WBC 19.78 H (4.50-10.00) X 10*3/uL RBC 3.19 L (4.10-5.20) X 10*6/uL Hgb 10.0 L (12.0-15.0) g/dL Hct 31.2 L (37.2-46.3) % MCV 97.8 H (80.0-97.0) FL Immature Gran # 0.18 H (0.00-0.04) X 10*3/uL Neutrophils # 17.37 H (1.80-7.70) X 10*3/uL Carbon Dioxide 20.9 L (21.6-31.8) mmol/L Anion Gap 13.10 H (4.00-12.00) mmol/L BUN/Creatinine Ratio 20.89 H (12.00-20.00) Ratio Total Protein 5.9 L (6.2-8.2) g/dL Albumin 3.4 L (3.8-4.9) g/dL Albumin/Globulin Ratio 1.36 L (1.60-3.17) Ratio Procalcitonin 2.32 H (0.02-0.50) ng/mL Microbiology - Last 24 Hours (Table) 01/22/25 17:23 Blood Culture - Preliminary Blood Assessment and Plan Assessment: Right upper quadrant abdominal pain, secondary to acute cholecystitis, with cholelithiasis. Possible right middle lobe pneumonia. History of breast cancer. History of ovarian cancer. History of diabetes mellitus. History of hypertension. History of gastroesophageal reflux disease. Lifelong non-smoker. Multiple other medical problems and comorbidities. Plan: Plan dated January 2025. The patient is seen today in the observation unit, room 155. The patient will likely go to the operating room tomorrow for her acute cholecystitis with cholelithiasis. She may also have a right middle lobe pneumonia. She has a dry cough. She has no fever or chills. The patient appears stable from the r espiratory standpoint. She is on Zosyn. From our standpoint, as long as the patient has an uneventful night, the patient can go to the operating room tomorrow for a cholecystectomy. We will continue to follow along. We do recommend the incentive spirometer. This is especially important after surgery. Additional recommendations and suggestions are forthcoming. Dictation was produced using [employer] software. Please excuse any grammatical, word or spelling errors. Plan dated January 24, 2025. The patient is seen again today in 467. Later today she is going for a cholecystectomy. The patient's respiratory status is stable. She is currently on Zosyn. Labs, x-rays, medications are reviewed. The patient only have a dry cough. No fever or chills. Labs, x-rays, and all medications are reviewed. Prognosis is thought to be good. Dictation was produced using [employer] software. Please excuse any grammatical, word or spelling errors. Time with Patient: Less than 30
[2025-01-24] MEDS: IV FLUID CONTINUATION 1,000 ML IV ONE (15:44)
[2025-01-24 15:54] LABS: Glucose,Whole Blood 75 mg/dL (70-110)
[2025-01-24] MEDS ORDERED: NEOSTIGMINE 1 MG/ML 10 ML VIAL ONE (17:15)
[2025-01-24] MEDS ORDERED: PROPOFOL 10 MG/ML 20 ML VIAL IV ONE (17:15)
[2025-01-24] MEDS ORDERED: fentaNYL (PF) 50 MCG/ML 2 ML AMP ONE (17:15)
[2025-01-24] MEDS ORDERED: LIDOCAINE 1% INJ 10MG/ML (20 ML MDV) ONE (17:15)
[2025-01-24] MEDS ORDERED: GLYCOPYRROLATE 0.2 MG/ML 2 ML VIAL ONE (17:15)
[2025-01-24] MEDS ORDERED: SUCCINYLCHOLINE CHLORIDE 200 MG/10 ML VIAL IV ONE (17:15)
[2025-01-24] MEDS ORDERED: ROCURONIUM 10 MG/ML (5 ML VIAL) IV ONE (17:15)
[2025-01-24] MEDS: LIDOCAINE 1%-EPI 1:100,000 20 ML VIAL SQ ONE (17:41)
[2025-01-24] MEDS ORDERED: HYDROmorphone 0.5 MG/0.5 ML SYRINGE IVP PRN (18:34)
[2025-01-24] MEDS ORDERED: HYDROmorphone 1 MG/ML 1 ML SYRINGE IVP PRN (18:34)
--- NOTE | 2025-01-24 18:43 | P.OP ---
Date of Procedure: 01/24/25 Description of Procedure: SURGEON: PIA LARSEN MD PREOPERATIVE DIAGNOSES: 1. Acute cholecystitis due to symptomatic gallstones 2. Sepsis due to pneumonia including acute cholecystitis 3. History of breast cancer 4. Status post bilateral mastectomy 5. History of ovarian cancer 6. Acute right middle lobar pneumonia 7. Gastroesophageal reflux disease 8. Hypertensive heart disease POSTOPERATIVE DIAGNOSES: 1. Acute on chronic cholecystitis due to symptomatic gallstones 2. Sepsis due to pneumonia including acute cholecystitis 3. History of breast cancer 4. Status post bilateral mastectomy 5. History of ovarian cancer 6. Acute right middle lobar pneumonia 7. Gastroesophageal reflux disease 8. Hypertensive heart disease 9. Pelvic adhesions 10. Pericholecystic adhesions OPERATION: 1. Robotic-assisted da Cy Xi laparoscopic lysis of adhesions greater than 50% of the case 2. Robotic-assisted da Cy Xi laparoscopic cholecystectomy, multiport with FIREFLY ESTIMATED BLOOD LOSS: 5 mL. SPECIMENS REMOVED: Gallbladder. COMPLICATIONS: None. OPERATIVE FINDINGS: 1. Moderate scarring over entire gallbladder with peritoneal adhesions, pericholecystic with features of acute on chronic cholecystitis, greater than 50% of the case 2. Large gallstones over 1 to 2 cm palpated 3. Lower pelvic adhesions from prior laparotomy for ovarian cancer INDICATIONS: The patient is a 74-year-old female who presents with white count over 33,000, intermittent tachycardia consistent with sepsis. Diagnostic workup demonstrated acute pneumonia including acute cholecystitis due to symptomatic gallstones. Cardiac risk assessment was obtained. Patient was placed on antibi otics. Robotic assisted laparoscopic approach was described. Benefits and risks of the procedure including but not limited to bleeding, infection, injury to the biliary tree was described. Informed consent was obtained. DESCRIPTION OF PROCEDURE: Patient was brought to the operating room, placed in supine position. After general induction, the abdomen had been prepped and draped in standard sterile fashion. The robotic da Cy XI system was primed. After a timeout protocol was performed, the patient had been prepped and draped in standard sterile fashion. The patient was injected with indocyanine green. A 5 mm 0 degrees laparoscopic trocar entry was performed along the left upper quadrant. The abdomen insufflated to 15 mmHg pressure which was tolerated well. Diagnostic laparoscopy demonstrated no injury to bowel viscera or mesentery. Lower midline pelvic adhesions were identified involving small bowel however undisturbed. Moderate pericholecystic adhesions were identified involving the entire gallbladder. The liver surface was unremarkable. Next, two 8 mm robotic ports were placed along the right upper abdomen. The camera 8-mm port was maintained along the epigastrium. Another 8 mm port was placed along the left upper abdominal wall after exchanging the 5 mm port. Please note that the ports were placed at least 10 to 15 cm away from the target anatomy of the gallbladder. The robot was docked along the left lateral abdomen. The patient was repositioned in reverse Trendelenburg position. Using a grasper for arm 1, a grasper for arm 4, including hook cautery for arm 3, the robotic system was docked and primed as described. Instruments were interchanged by the integration assistant including hook cautery, Bovie cautery and clip appliers. I had sat at the console. The gallbladder was scarred with peritoneal adhesions. Lysis of adhesions was performed to free the gallbladder from the surrounding tissues. Lysis of adhesions over 50% of the case was performed. Dome down technique was performed from the fundus towards the infundibulum. Next attention was brought to the infundibulum and cystic structures. The infundibulum and cystic duct were dissected free from surrounding tissues. The cystic duct was isolated. FIREFLY was used to identify the cystic artery and cystic structures. Contrast was found within the common bile duct however without contrast found in the gallbladder consistent with acute cholecystitis. A critical view of safety was obtained. Large PLASTIC clips were used throughout the entire case. Using a clip esthetician permanent makeup artist, 3 clips were placed at the junction of the infundibulum and cystic duct. The cystic duct was divided between clips. Next, the cystic artery was cauterized. Electro-Bovie cautery was used to remove the gallbladder from the hepatic fossa. Hemostasis was checked and found to be adequate. The robot was undocked. I re-scrubbed into the case. Using a 10 mm Endo Catch bag via the left upper quadrant incision after widening the incision to 3 cm, the specimen was removed from the abdominal cavity. Fantasma Frederick and 0 Vicryl was used to close the fascial defect of the left upper quadrant incision. All pneumoperitoneum instruments were evacuated from the abdominal cavity. The incisions were reapproximated using 4-0 Monocryl in an interrupted subcuticular fashion. Fascial defects were less than 8 mm in size. Please note along the trocar sites, local anesthetic was placed as a field block prior to insertion of all instruments. Liquid glue was applied to the skin. At the end of the procedure needle, sponge, and instrument count had been verified correct by the surgical lead. The patient was transferred to postanesthesia care unit in stable condition. Intraoperative films were shared with the patient's family who are pleased with the level of care.
[2025-01-24 18:55] LABS: Glucose,Whole Blood 98 mg/dL (70-110)
[2025-01-24] MEDS: ceFAZolin 2 GM in DEXTROSE 5% IN WATER 50 ML IVPB STA (20:34)
[2025-01-24] MEDS: INDOCYANINE GREEN 25 MG VIAL IV STA (20:35)
[2025-01-24] MEDS: HEPARIN SODIUM,PORCINE 5,000 UNIT/ML 1 ML VIAL SQ SCH (20:42)
[2025-01-24] MEDS: KETOROLAC 15 MG/ML 1 ML VIAL IVP PRN (20:42)
[2025-01-24] MEDS: SIMETHICONE 80 MG CHEWABLE PO SCH (20:43)
[2025-01-24] MEDS: FAMOTIDINE 20 MG TAB PO SCH (20:43)
[2025-01-25 10:36] LABS: Basophils # (A) 0.02 X 10*3/uL (0.00-0.10); Basophils % (A) 0.2 %; Eosinophils # (A) 0.17 X 10*3/uL (0.04-0.35); Eosinophils % (A) 1.4 %; HCT 27.8 % (37.2-46.3); HGB 8.7 g/dL (12.0-15.0); Lymphocytes % (A) 8.9 %; MCH 30.4 pg (27.0-32.0); MCHC 31.3 g/dL (32.0-37.0); MCV 97.2 FL (80.0-97.0); Mean Platelet Volume 10.5 FL (9.5-12.2); Monocytes # (A) 0.75 X 10*3/uL (0.20-1.00); NRBC Per 100 WBC 0 X 10*3/uL (0.00-0.01); Neutrophils # (A) 10.32 X 10*3/uL (1.80-7.70); Neutrophils % (A) 83.1 %; Platelet Count 231 X 10*3/uL (140-440); RBC 2.86 X 10*6/uL (4.10-5.20); RDW 12.6 % (11.5-14.5); WBC 12.41 X 10*3/uL (4.50-10.00)
--- NOTE | 2025-01-25 10:36 | P.PN ---
Subjective Progress Note Date: 01/25/25 Pulmonary consult dated January 23, 2025. This is a 74-year-old female who came in from an outside hospital, with abdominal pain, in the right upper quadrant, as well as some nausea, fever, diarrhea, and cough. The patient was apparently evaluated, and thought to have acute cholecystitis, and we were asked to see the patient, because the plans are for her to go to surgery tomorrow. The chest x-ray apparently showed a possible right-sided infiltrate, potentially consistent with pneumonia. The patient has been coughing. She is not producing any phlegm. She does have a history of breast cancer, and ovarian cancer. She states that neither cancer is currently active. Current laboratory data includes a white count of 27.1, hemoglobin 10.5, hematocrit 31.8, and a platelet count of 224,000. Sodium 139, potassium 3.8, chlorides 106, CO2 20, anion gap 13, BUN 26, creatinine 0.79. Glucose is 107. Screen for influenza A and B, were negative. Gallbladder ultrasound shows possible acute cholecystitis with cholelithiasis. Chest x-ray suggested possible right middle lobe pneumonia. CT scan of the chest abdomen and pelvis, shows a multifocal pneumonia predominantly in the right middle lobe, chol elithiasis with evidence for gallbladder wall thickening, and possible acute cholecystitis, small hiatal hernia, and nonobstructing right renal calculus. Currently, the patient is on room air. No respiratory distress. The patient is currently on Zosyn. Progress note dated January 24, 2025. Pleasant 74-year-old female seen yesterday in consultation. We were consulted for possible right sided pneumonia. The patient came in with primarily right upper quadrant abdominal pain, was felt to have acute cholecystitis with cholelithiasis. Anyway, we were asked by the primary service, to clear her for surgery, which we did. She apparently is going to have a laparoscopic cholecystectomy today. She is seen today in room 467. She is on room air. She is getting saline at 75 cc an hour. She is on Zosyn empirically. White count was 19.8, hemoglobin 10, hematocrit 31.2, platelet count was normal. Sodium 143, potassium 3.8, chloride 109, CO2 21, BUN 19, and creatinine 0.9. The patient is seen today January 25, 2025 in follow-up on the regular medical floor. She is up ambulating in her room. Awake and alert in no acute distress. Maintaining O2 saturations in the 90s on room air oxygen. She has been afebrile. Hemodynamically stable. No IV fluids. She is postoperative day #1 of a robotic assisted cholecystectomy with lysis of adhesions. Blood culture revealing no growth. She remains on heparin for DVT prophylaxis. Continued on Zosyn. Normal saline at KVO. Tolerating a low-fat diet. Objective - Vital Signs Vital signs: Vital Signs Temp 98.5 F 01/25/25 07:42 Pulse 79 01/25/25 08:00 Resp 19 01/25/25 08:00 BP 137/64 01/25/25 07:42 Pulse Ox 96 01/25/25 07:42 FiO2 Intake & Output 01/24/25 01/25/25 01/25/25 18:59 06:59 18:59 Intake Total 700 Output Total 5 470 Balance 695 -470 Intake: IV 700 Output: Urine 470 Estimated Blood Loss 5 Other: Voiding Method Toilet Toilet Toilet Diaper Diaper # Voids 3 250 - Exam GENERAL EXAM: Alert, active, 74-year-old female, on room air oxygen, comfortable in no apparent distress. HEAD: Normocephalic. EYES: Normal reaction of pupils, equal size. NOSE: Clear with pink turbinates. THROAT: No erythema or exudates. NECK: No masses, no JVD. CHEST: No chest wall deformity. LUNGS: Equal air entry with no crackles, wheeze, rhonchi or dullness. CVS: S1 and S2 normal with no audible murmur, regular rhythm. ABDOMEN: Incisions clean dry and well-approximated. No hepatosplenomegaly, normal bowel sounds, no guarding or rigidity. SPINE: No scoliosis or deformity SKIN: No rashes CENTRAL NERVOUS SYSTEM: No focal deficits, tone is normal in all 4 extremities. EXTREMITIES: There is no peripheral edema. No clubbing, no cyanosis. Peripheral pulses are intact. - Labs CBC & Chem 7: 01/24/25 04:48 01/24/25 04:48 Labs: Microbiology - Last 24 Hours (Table) 01/22/25 17:23 Blood Culture - Preliminary Blood Assessment and Plan Assessment: Right upper quadrant abdominal pain, secondary to acute cholecystitis, with cholelithiasis. Status post robotic assisted cholecystectomy with lysis of adhesions. Postoperative day #1 Possible right middle lobe pneumonia. Remains on Zosyn History of breast cancer. History of ovarian cancer. History of diabetes mellitus. History of hypertension. History of gastroesophageal reflux disease. Lifelong non-smoker. Multiple other medical problems and comorbidities. Plan: The patient was seen and evaluated Operative report, medications reviewed Stable and on room air oxygen Continued on Zosyn Heparin for DVT prophylaxis Increase her activity as tolerated Tolerating a low fat diet We will continue to follow I have personally seen and examined the patient, performed the documentation and the assessment and plan as written. Number of minutes spent on the visit: 10 Dictation was produced using [employer] dictation software. Please excuse any grammatical, word or spelling errors.
[2025-01-25 11:25] LABS: BUN/Creat Ratio 28.25 Ratio (12.00-20.00); Blood Urea Nitrogen 22.6 mg/dL (9.0-27.0); Carbon Dioxide 20.4 mmol/L (21.6-31.8); Chloride 109 mmol/L (96-109); Glucose 93 mg/dL (70-110); Potassium 3.4 mmol/L (3.5-5.5); Sodium 142 mmol/L (135-145)
[2025-01-25 11:26] LABS: ALT 19 U/L (8-44); AST 28 U/L (13-35); Albumin 3.3 g/dL (3.8-4.9); Albumin/Globulin Ratio 1.57 Ratio (1.60-3.17); Alkaline Phosphatase 64 U/L (41-126); Calcium 8.7 mg/dL (8.7-10.3); Globulin 2.1 g/dL (1.6-3.3); Total Bilirubin 0.3 mg/dL (0.3-1.2); Total Protein 5.4 g/dL (6.2-8.2)
--- NOTE | 2025-01-25 11:59 | P.PN ---
Subjective Progress Note Date: 01/25/25 CHIEF COMPLAINT: Abdominal pain HISTORY OF PRESENT ILLNESS: The patient is a 74-year-old female with pre- existing history of breast cancer status post right mastectomy who reports a longstanding history of gallstones. She is status post robotic cholecystectomy 01/24/2025. She is sitting up in a chair. Pain is well-controlled. No further reports of right upper quadrant abdominal pain. She reports appropriate left upper quadrant incisional pain. No further fevers. She reports unable to urinate since surgery. She had straight cath overnight. ROS: No new chest pain. No productive sputum. No fevers or chills. PHYSICAL EXAM: VITAL SIGNS: Reviewed CONSTITUTIONAL: Well developed and in no acute distress. EYES: Conjuctivae without sclera icterus. Extraocular movements grossly intact. HEAD, EARS, NOSE, THROAT: Moist buccal mucosa. Head is atraumatic, normocephalic. Hears conversational speech. No nasal drainage. RESPIRATORY: Non-labored respirations and equal bilateral excursions. CARDIOVASCULAR: Palpable 2+ radial pulses. ABDOMEN: Incision right upper quadrant clean dry intact. No peritonitis. Appropriate left upper quad incisional pain. MUSCULOSKELETAL: No gross deformity of the lower extremities noted. No clubbing. No cyanosis. SKIN: Good skin turgor. Well perfused. NEUROLOGIC: Cranial nerves II through XII grossly intact. No focal or lateralizing signs. PSYCH: Appropriate affect. Alert and oriented to person, place and time. CLINICAL LABS: Reviewed. WBC down 33,000-19,000, today down to over 12,000. Hemoglobin down 10.0-8.7 ASSESSMENT: 1. Acute cholecystitis due to gallstones 2. Sepsis due to pneumonia and acute cholecystitis 3. History of breast cancer status postmastectomy 4. Right middle lobe lobar pneumonia 5. History of ovarian cancer. 6. Urinary retention PLAN: 1. Clinically she has done extraordinarily well however now has urinary retention. Will start Flomax. 2. Patient may be discharged when medically cleared by pulmonary team due to pneumonia. 3. May likely benefit from antibiotics upon discharge to address pneumoni a/cholecystitis with leukocytosis 4. Patient was seen alongside Dr. Nelson Dictation was produced using [employer] dictation software. Please excuse any grammatical, word or spelling errors. Objective - Vital Signs Vital signs: Vital Signs Temp 98.5 F 05/10/25 07:42 Pulse 79 01/25/25 08:00 Resp 19 01/25/25 08:00 BP 137/64 01/25/25 07:42 Pulse Ox 96 01/25/25 07:42 FiO2 Intake & Output 01/24/25 01/25/25 01/25/25 18:59 06:59 18:59 Intake Total 700 Output Total 5 470 Balance 695 -470 Intake: IV 700 Output: Urine 470 Estimated Blood Loss 5 Other: Voiding Method Toilet Toilet Toilet Diaper Diaper # Voids 3 250 - Labs CBC & Chem 7: 01/25/25 04:31 01/25/25 04:31 Labs: Abnormal Lab Results - Last 24 Hours (Table) 01/25/25 01/25/25 Range/Units 04:31 04:31 WBC 12.41 H (4.50-10.00) X 10*3/uL RBC 2.86 L (4.10-5.20) X 10*6/uL Hgb 8.7 L (12.0-15.0) g/dL Hct 27.8 L (37.2-46.3) % MCV 97.2 H (80.0-97.0) FL MCHC 31.3 L (32.0-37.0) g/dL Immature Gran # 0.05 H (0.00-0.04) X 10*3/uL Neutrophils # 10.32 H (1.80-7.70) X 10*3/uL Potassium 3.4 L (3.5-5.5) mmol/L Carbon Dioxide 20.4 L (21.6-31.8) mmol/L Anion Gap 12.60 H (4.00-12.00) mmol/L BUN/Creatinine Ratio 28.25 H (12.00-20.00) Ratio Total Protein 5.4 L (6.2-8.2) g/dL Albumin 3.3 L (3.8-4.9) g/dL Albumin/Globulin Ratio 1.57 L (1.60-3.17) Ratio Microbiology - Last 24 Hours (Table) 01/22/25 17:23 Blood Culture - Preliminary Blood
--- NOTE | 2025-01-25 12:10 | P.PN ---
Subjective Progress Note Date: 01/25/25 Mary Bella is a 74-year-old female patient who presented to the emergency room with complaints of right upper quadrant pain patient reports that she started having symptoms yesterday with elevated temp and loose stools. Patient has a past medical history of gallstones, breast and ovarian cancer, GERD, essential hypertension and peripheral neuropathy. Testing in the emergency room revealed findings equivocal for acute cholecystitis could be related to chronic versus other etiologies nonobstructing right renal calculus. Chest x-ray completed showing right middle lobe pneumonia. CT scan of chest abdomen pelvis completed showing multifocal pneumonia, cholelithiasis without evidence for gallbladder wall thickening correlate for signs and symptoms of acute cholecystitis findings mildly progressed from prior suggesting adenomyomatous. Consider further evaluation with MRI. Small hiatal hernia nonobstructing right renal calculus. Lab work completed showing white blood cell 33.95, hemoglobin 11.4, creatinine 0.82, bun 28. UA showing small amount of leukocyte Estrace. Amylase and lipase negative. Liver enzymes within normal limits. At this time patient will be admitted surgical services have been consulted for possible cholecystitis, infectious disease consulted for leukocytosis and pulmonary services consulted for pneumonia. Current vital signs temp 99.2, heart rate 100, respiratory rate 121/71 with pulse ox 97% on room air. Started on antibiotics, blood cultures ordered, influenza and stool for C. difficile ordered On 01/24/2025 patient is alert and oriented x 3. Patient undergoing lap shaun today. White blood cell trending down to 19.78. Patient reports improvement. Current vital signs temp 98.6, heart rate 94, respiratory rate 17, blood pressure 132/75 with a pulse ox of 96% on room air. Patient remains on IV Zosyn. Cardiology, pulmonary, infectious disease and surgical services are all following. Patient denies chest pain or shortness of breath. Patient denies nausea vomiting or diarrhea. Patient denies any urinary burning or frequency On 01/25/2025 patient was seen and examined on the medical floor she is alert and oriented x 3 in no apparent distress she is complaining of urinary retention otherwise she denies any complaints there is no fever or chills no headache or dizziness no chest pain no shortness of breath no cough no nausea or vomiting no abdominal pain no diarrhea no burning with urination no frequency or urgency and no hematuria. At this time Flomax was added to her medication regimen, she will be discharged to home today or tomorrow when she is able to urinate. Objective - Vital Signs Vital signs: Vital Signs Temp 98.5 F 01/25/25 07:42 Pulse 79 01/25/25 08:00 Resp 19 01/25/25 08:00 BP 137/64 01/25/25 07:42 Pulse Ox 96 01/25/25 07:42 FiO2 Intake & Output 01/24/25 01/25/25 01/25/25 18:59 06:59 18:59 Intake Total 700 Output Total 5 470 Balance 695 -470 Intake: IV 700 Output: Urine 470 Estimated Blood Loss 5 Other: Voiding Method Toilet Toilet Toilet Diaper Diaper # Voids 3 250 - Exam Head normocephalic Neck supple Lungs clear to auscultation bilaterally no wheezing or crackles Heart regular rate and rhythm S1-S2, no rub or gallop Abdomen is soft nontender nondistended positive bowel sounds no hepatosplenomegaly Extremities no edema Neuro alert and orientated to 3 - Labs CBC & Chem 7: 01/25/25 04:31 01/25/25 04:31 Labs: Abnormal Lab Results - Last 24 Hours (Table) 01/25/25 01/25/25 Range/Units 04:31 04:31 WBC 12.41 H (4.50-10.00) X 10*3/uL RBC 2.86 L (4.10-5.20) X 10*6/uL Hgb 8.7 L (12.0-15.0) g/dL Hct 27.8 L (37.2-46.3) % MCV 97.2 H (80.0-97.0) FL MCHC 31.3 L (32.0-37.0) g/dL Immature Gran # 0.05 H (0.00-0.04) X 10*3/uL Neutrophils # 10.32 H (1.80-7.70) X 10*3/uL Potassium 3.4 L (3.5-5.5) mmol/L Carbon Dioxide 20.4 L (21.6-31.8) mmol/L Anion Gap 12.60 H (4.00-12.00) mmol/L BUN/Creatinine Ratio 28.25 H (12.00-20.00) Ratio Total Protein 5.4 L (6.2-8.2) g/dL Albumin 3.3 L (3.8-4.9) g/dL Albumin/Globulin Ratio 1.57 L (1.60-3.17) Ratio Microbiology - Last 24 Hours (Table) 01/22/25 17:23 Blood Culture - Preliminary Blood Assessment and Plan Assessment: 1. Right upper quadrant abdominal pain 2. Right lower lobe pneumonia. Pulmonary services consulted procalcitonin level ordered 3. Possible cholecystitis surgical services consulted 4. Leukocytosis secondary to above 5. History of breast cancer in 2009 with chemo and bilateral mastectomy 6. History of ovarian cancer in 2005 with chemo 7. History of GERD 8. History of essential hypertension DVT prophylaxis SCDs due to possible surgical intervention. GI prophylaxis Pepcid Surgical services, infectious disease and pulmonary services consulted Blood culture ordered Procalcitonin level ordered repeat labs ordered
[2025-01-25] MEDS: TAMSULOSIN 0.4 MG CAP.ER.24H PO STA (12:40)
--- NOTE | 2025-01-25 13:45 | P.PN ---
Subjective Progress Note Date: 01/25/25 HISTORY OF PRESENT ILLNESS: This is a 74-year-old female with a past medical history significant for hyp ertension. 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 We have been asked to see the patient in consultation for cardiac clearance. Patient examined at the bedside. Patient presented to the hospital for chief complaint of abdominal pain. Patient was found to have acute cholecystitis and is scheduled for surgical intervention tomorrow. Patient currently denies chest pain or pressure. She denies shortness of breath. Patient states she is usually active on an outpatient basis and has to walk up the stairs at her apartment complex for the laundry. She denies any chest pain or shortness of breath with exertion. Patient denies any known history of CAD. She states she has never had a stress test in the past. DIAGNOSTICS: - EKG reveals sinus mechanism with nonspecific ST-T wave changes. - Chest xray right middle lobe pneumonia. - Laboratory data: WBC 27.14. Hemoglobin 10.5. Platelet count 224. Sodium 139. Potassium 3.8. BUN 26. Creatinine 0.79. - Current home cardiac medications include lisinopril 10 mg at night - Echocardiogram obtained this admission reveals ejection fraction 55 to 60%, no obvious regional wall motion abnormalities, mild mitral regurgitation, no significant pulmonary hypertension. No pericardial effusion. 01/24/2025 Patient examined this morning at the bedside. Patient currently denies chest pain or pressure. She denies shortness of breath. Vital signs are stable. She is scheduled to undergo cholecystectomy today 02/04/2025 BP 137/64, heart rate 82, She had the laparoscopically cystectomy yesterday. No significant postop complications Echo shows preserved LV size systolic function with no major valvular dysfunction PHYSICAL EXAM: HEENT: Head is normocephalic. Pupils are equal, round. Sclerae anicteric. Mucous membranes of the mouth are moist. Neck supple. No JVD or thyromegaly LUNGS: Respirations even and unlabored. Lungs essentially clear to auscultation bilaterally. HEART: Regular rate and rhythm. S1 and S2 heard. 2/6 systolic ejection murmur at the base ABDOMEN: Soft. Nondistended. Nontender. EXTREMITIES: Normal range of motion. No clubbing or cyanosis. Peripheral pulses intact. No lower extremity edema NEUROLOGIC: Awake and alert. Oriented x 3. ASSESSMENT: Abdominal pain Acute cholecystitis Hypertension Possible pneumonia per chest x-ray Leukocytosis PLAN: She is on lisinopril 10 mg and metoprolol 25 mg twice daily. Will continue these medications At this time patient is doing well from cardiovascular standpoint. Cardiology team will sign off Follow-up on outpatient basis with cardiology. Objective - Vital Signs Vital signs: Vital Signs Temp 98.5 F 01/25/25 07:42 Pulse 79 01/25/25 08:00 Resp 19 01/25/25 08:00 BP 137/64 01/25/25 07:42 Pulse Ox 96 01/25/25 07:42 FiO2 Intake & Output 01/24/25 01/25/25 01/25/25 18:59 06:59 18:59 Intake Total 700 Output Total 5 470 Balance 695 -470 Intake: IV 700 Output: Urine 470 Estimated Blood Loss 5 Other: Voiding Method Toilet Toilet Toilet Diaper Diaper # Voids 3 250 - Labs CBC & Chem 7: 01/25/25 04:31 01/25/25 04:31 Labs: Abnormal Lab Results - Last 24 Hours (Table) 01/25/25 01/25/25 Range/Units 04:31 04:31 WBC 12.41 H (4.50-10.00) X 10*3/uL RBC 2.86 L (4.10-5.20) X 10*6/uL Hgb 8.7 L (12.0-15.0) g/dL Hct 27.8 L (37.2-46.3) % MCV 97.2 H (80.0-97.0) FL MCHC 31.3 L (32.0-37.0) g/dL Immature Gran # 0.05 H (0.00-0.04) X 10*3/uL Neutrophils # 10.32 H (1.80-7.70) X 10*3/uL Potassium 3.4 L (3.5-5.5) mmol/L Carbon Dioxide 20.4 L (21.6-31.8) mmol/L Anion Gap 12.60 H (4.00-12.00) mmol/L BUN/Creatinine Ratio 28.25 H (12.00-20.00) Ratio Total Protein 5.4 L (6.2-8.2) g/dL Albumin 3.3 L (3.8-4.9) g/dL Albumin/Globulin Ratio 1.57 L (1.60-3.17) Ratio Microbiology - Last 24 Hours (Table) 01/22/25 17:23 Blood Culture - Preliminary Blood
[2025-01-25] MEDS: TAMSULOSIN 0.4 MG CAP.ER.24H PO SCH (18:08)
[2025-01-25 21:51] LABS: Chol/HDL Ratio 4.07 Ratio; LDL Cholesterol,Calculated 78.5 mg/dL (0.0-131.0)
[2025-01-26 08:41] VITALS: BP 152/78; PULSE 93; RESP 16; TEMP 98.8
--- NOTE | 2025-01-26 09:29 | P.PN ---
Subjective Progress Note Date: 01/26/25 Pulmonary consult dated January 23, 2025. This is a 74-year-old female who came in from an outside hospital, with abdominal pain, in the right upper quadrant, as well as some nausea, fever, diarrhea, and cough. The patient was apparently evaluated, and thought to have acute cholecystitis, and we were asked to see the patient, because the plans are for her to go to surgery tomorrow. The chest x-ray apparently showed a possible right-sided infiltrate, potentially consistent with pneumonia. The patient has been coughing. She is not producing any phlegm. She does have a history of breast cancer, and ovarian cancer. She states that neither cancer is currently active. Current laboratory data includes a white count of 27.1, hemoglobin 10.5, hematocrit 31.8, and a platelet count of 224,000. Sodium 139, potassium 3.8, chlorides 106, CO2 20, anion gap 13, BUN 26, creatinine 0.79. Glucose is 107. Screen for influenza A and B, were negative. Gallbladder ultrasound shows possible acute cholecystitis with cholelithiasis. Chest x-ray suggested possible right middle lobe pneumonia. CT scan of the chest abdomen and pelvis, shows a multifocal pneumonia predominantly in the right middle lobe, chol elithiasis with evidence for gallbladder wall thickening, and possible acute cholecystitis, small hiatal hernia, and nonobstructing right renal calculus. Currently, the patient is on room air. No respiratory distress. The patient is currently on Zosyn. Progress note dated January 24, 2025. Pleasant 74-year-old female seen yesterday in consultation. We were consulted for possible right sided pneumonia. The patient came in with primarily right upper quadrant abdominal pain, was felt to have acute cholecystitis with cholelithiasis. Anyway, we were asked by the primary service, to clear her for surgery, which we did. She apparently is going to have a laparoscopic cholecystectomy today. She is seen today in room 467. She is on room air. She is getting saline at 75 cc an hour. She is on Zosyn empirically. White count was 19.8, hemoglobin 10, hematocrit 31.2, platelet count was normal. Sodium 143, potassium 3.8, chloride 109, CO2 21, BUN 19, and creatinine 0.9. The patient is seen today January 25, 2025 in follow-up on the regular medical floor. She is up ambulating in her room. Awake and alert in no acute distress. Maintaining O2 saturations in the 90s on room air oxygen. She has been afebrile. Hemodynamically stable. No IV fluids. She is postoperative day #1 of a robotic assisted cholecystectomy with lysis of adhesions. Blood culture revealing no growth. She remains on heparin for DVT prophylaxis. Continued on Zosyn. Normal saline at KVO. Tolerating a low-fat diet. The patient is seen today January 26, 2025 in follow-up on the regular medical floor. Postoperative day #2. She is awake and alert in no acute distress. Denies any worsening shortness of breath, cough or congestion. She is maintaining good O2 saturation in the mid 90s on room air oxygen. Afebrile. Hemodynamically stable. Blood culture revealed no growth. White count 12.4. Hemoglobin 8.7. Platelets 231. Sodium 142. Potassium 3.4. Bicarb 20. BUN 23. Creatinine 0.8. Glucose 114. She remains on heparin for DVT prophylaxis. Antibiotics in the form of Zosyn. Objective - Vital Signs Vital signs: Vital Signs Temp 98.8 F 01/26/25 07:43 Pulse 93 01/26/25 07:43 Resp 16 01/26/25 07:43 BP 152/78 01/26/25 07:43 Pulse Ox 95 01/26/25 07:43 FiO2 Intake & Output 01/25/25 01/26/25 01/26/25 18:59 06:59 18:59 Intake Total 840 120 Output Total 100 Balance 740 120 Intake: Oral 840 120 Output: Urine 100 Other: Voiding Method Toilet Toilet Toilet Diaper Diaper Diaper # Voids 3 1 # Bowel Movements 1 1 - Exam GENERAL EXAM: Alert, active, very pleasant 74-year-old female, on room air oxygen, comfortable in no apparent distress. HEAD: Normocephalic. EYES: Normal reaction of pupils, equal size. NOSE: Clear with pink turbinates. THROAT: No erythema or exudates. NECK: No masses, no JVD. CHEST: No chest wall deformity. LUNGS: Equal air entry with no crackles, wheeze, rhonchi or dullness. CVS: S1 and S2 normal with no audible murmur, regular rhythm. ABDOMEN: Incisions clean dry and well-approximated. No hepatosplenomegaly, normal bowel sounds, no guarding or rigidity. SPINE: No scoliosis or deformity SKIN: No rashes CENTRAL NERVOUS SYSTEM: No focal deficits, tone is normal in all 4 extremities. EXTREMITIES: There is no peripheral edema. No clubbing, no cyanosis. Peripheral pulses are intact. - Labs CBC & Chem 7: 01/25/25 04:31 01/25/25 04:31 Labs: Abnormal Lab Results - Last 24 Hours (Table) 01/25/25 01/25/25 01/25/25 Range/Units 04:31 04:31 04:31 WBC 12.41 H (4.50-10.00) X 10*3/uL RBC 2.86 L (4.10-5.20) X 10*6/uL Hgb 8.7 L (12.0-15.0) g/dL Hct 27.8 L (37.2-46.3) % MCV 97.2 H (80.0-97.0) FL MCHC 31.3 L (32.0-37.0) g/dL Immature Gran # 0.05 H (0.00-0.04) X 10*3/uL Neutrophils # 10.32 H (1.80-7.70) X 10*3/uL Potassium 3.4 L (3.5-5.5) mmol/L Carbon Dioxide 20.4 L (21.6-31.8) mmol/L Anion Gap 12.60 H (4.00-12.00) mmol/L BUN/Creatinine Ratio 28.25 H (12.00-20.00) Ratio Total Protein 5.4 L (6.2-8.2) g/dL Albumin 3.3 L (3.8-4.9) g/dL Albumin/Globulin Ratio 1.57 L (1.60-3.17) Ratio HDL Cholesterol 33.70 L (40.00-60.00) mg/dL Microbiology - Last 24 Hours (Table) 01/22/25 17:23 Blood Culture - Preliminary Blood Assessment and Plan Assessment: Right upper quadrant abdominal pain, secondary to acute cholecystitis, with cholelithiasis. Status post robotic assisted cholecystectomy with lysis of adhesions. Postoperative day #2 Possible right middle lobe pneumonia. Remains on Zosyn. Procalcitonin 2.32 History of breast cancer. History of ovarian cancer. History of diabetes mellitus. History of hypertension. History of gastroesophageal reflux disease. Lifelong non-smoker. Multiple other medical problems and comorbidities. Plan: The patient was seen and evaluated Labs and medications reviewed Stable and on room air oxygen Continued on Zosyn Heparin for DVT prophylaxis Increase her activity as tolerated Tolerating a low fat diet Home once cleared by surgical services I have personally seen and examined the patient, performed the documentation and the assessment and plan as written. Number of minutes spent on the visit: 10 Dictation was produced using [employer] dictation software. Please excuse any grammatical, word or spelling errors.
--- NOTE | 2025-01-26 09:51 | P.PN ---
Subjective Progress Note Date: 01/26/25 CHIEF COMPLAINT: Abdominal pain HISTORY OF PRESENT ILLNESS: The patient is a 74-year-old female status post cholecystectomy 01/24/2025 for acute cholecystitis. Yesterday, she had urinary retention. After Flomax, she was able to void spontaneously. She feels well. Right-sided pain is resolved. ROS: No new chest pain. No productive sputum. No fevers or chills. PHYSICAL EXAM: VITAL SIGNS: Reviewed CONSTITUTIONAL: Well developed and in no acute distress. EYES: Conjuctivae without sclera icterus. Extraocular movements grossly intact. HEAD, EARS, NOSE, THROAT: Moist buccal mucosa. Head is atraumatic, normocephalic. Hears conversational speech. No nasal drainage. RESPIRATORY: Non-labored respirations and equal bilateral excursions. CARDIOVASCULAR: Palpable 2+ radial pulses. ABDOMEN: Right-sided abdominal pain resolved. Appropriate left upper quadrant incision pain. MUSCULOSKELETAL: No gross deformity of the lower extremities noted. No clubbing. No cyanosis. SKIN: Good skin turgor. Well perfused. NEUROLOGIC: Cranial nerves II through XII grossly intact. No focal or lateral izing signs. PSYCH: Appropriate affect. Alert and oriented to person, place and time. CLINICAL LABS: Reviewed. WBC and CMP obtained for today however not resulted ASSESSMENT: 1. Acute cholecystitis due to gallstones 2. Sepsis due to pneumonia and acute cholecystitis 3. History of breast cancer status postmastectomy 4. Right middle lobe lobar pneumonia 5. History of ovarian cancer. 6. Urinary retention PLAN: 1. Patient is voiding spontaneously and stable for discharge from a surgical standpoint. 2. No lifting restrictions including no work 14 days following surgery until after February 07 Dictation was produced using [employer] dictation software. Please excuse any grammatical, word or spelling errors. Objective - Vital Signs Vital signs: Vital Signs Temp 98.8 F 01/26/25 07:43 Pulse 93 01/26/25 07:43 Resp 16 01/26/25 07:43 BP 152/78 01/26/25 07:43 Pulse Ox 95 01/26/25 07:43 FiO2 Intake & Output 01/25/25 01/26/25 01/26/25 18:59 06:59 18:59 Intake Total 840 120 Output Total 100 Balance 740 120 Intake: Oral 840 120 Output: Urine 100 Other: Voiding Method Toilet Toilet Toilet Diaper Diaper Diaper # Voids 3 1 # Bowel Movements 1 1 - Labs CBC & Chem 7: 01/25/25 04:31 01/25/25 04:31 Labs: Abnormal Lab Results - Last 24 Hours (Table) 01/25/25 01/25/25 01/25/25 Range/Units 04:31 04:31 04:31 WBC 12.41 H (4.50-10.00) X 10*3/uL RBC 2.86 L (4.10-5.20) X 10*6/uL Hgb 8.7 L (12.0-15.0) g/dL Hct 27.8 L (37.2-46.3) % MCV 97.2 H (80.0-97.0) FL MCHC 31.3 L (32.0-37.0) g/dL Immature Gran # 0.05 H (0.00-0.04) X 10*3/uL Neutrophils # 10.32 H (1.80-7.70) X 10*3/uL Potassium 3.4 L (3.5-5.5) mmol/L Carbon Dioxide 20.4 L (21.6-31.8) mmol/L Anion Gap 12.60 H (4.00-12.00) mmol/L BUN/Creatinine Ratio 28.25 H (12.00-20.00) Ratio Total Protein 5.4 L (6.2-8.2) g/dL Albumin 3.3 L (3.8-4.9) g/dL Albumin/Globulin Ratio 1.57 L (1.60-3.17) Ratio HDL Cholesterol 33.70 L (40.00-60.00) mg/dL Microbiology - Last 24 Hours (Table) 01/22/25 17:23 Blood Culture - Preliminary Blood
--- NOTE | 2025-01-26 09:59 | P.DS ---
Providers Date of admission: 01/22/25 20:07 Expected date of discharge: 01/26/25 Attending physician: Inna Nelson Consults: 01/22/25 20:05 Consult Physician Stat Consulting Provider: Sisi Godinez Consult Reason/Comments: Cholecystitis Do you want consulting provider notified?: Already Contacted 01/23/25 08:41 Consult Physician Routine Consulting Provider: Rachel Hawkins Consult Reason/Comments: Leukocytosis Do you want consulting provider notified?: Yes 01/23/25 09:53 Consult Physician Routine Consulting Provider: London Noonan Consult Reason/Comments: pneumonia Do you want consulting provider notified?: Yes 01/24/25 13:23 Consult Physician Routine Consulting Provider: [facility] Consult Reason/Comments: [facility] Do you want consulting provider notified?: Yes Primary care physician: Ayaka Friedman Hospital Course: Discharge diagnosis 1. Right upper quadrant abdominal pain 2. Right lower lobe pneumonia. Pulmonary services consulted procalcitonin level ordered 3. Possible cholecystitis. Status post cholecystectomy 4. Leukocytosis secondary to above 5. History of breast cancer in 2009 with chemo and bilateral mastectomy 6. History of ovarian cancer in 2005 with chemo 7. History of GERD 8. History of essential hypertension Hospital course Mary Bella is a 74-year-old female patient who presented to the emergency room with complaints of right upper quadrant pain patient reports that she started having symptoms yesterday with elevated temp and loose stools. Patient has a past medical history of gallstones, breast and ovarian cancer, GERD, essential hypertension and peripheral neuropathy. Testing in the emergency room revealed findings equivocal for acute cholecystitis could be related to chronic versus other etiologies nonobstructing right renal calculus. Chest x-ray completed showing right middle lobe pneumonia. CT scan of chest abdomen pelvis completed showing multifocal pneumonia, cholelithiasis without evidence for gallbladder wall thickening correlate for signs and symptoms of acute cholecystitis findings mildly progressed from prior suggesting adenomyomatous. Consider further evaluation with MRI. Small hiatal hernia nonobstructing right renal calculus. Lab work completed showing white blood cell 33.95, hemoglobin 11.4, creatinine 0.82, bun 28. UA showing small amount of leukocyte Estrace. Amylase and lipase negative. Liver enzymes within normal limits. At this time patient will be admitted surgical services have been consulted for possible cholecystitis, infectious disease consulted for leukocytosis and pulmonary services consulted for pneumonia. Current vital signs temp 99.2, heart rate 100, respiratory rate 121/71 with pulse ox 97% on room air. Started on antibiotics, blood cultures ordered, influenza and stool for C. difficile ordered On 01/24/2025 patient is alert and oriented x 3. Patient undergoing lap shaun today. White blood cell trending down to 19.78. Patient reports improvement. Current vital signs temp 98.6, heart rate 94, respiratory rate 17, blood pressure 132/75 with a pulse ox of 96% on room air. Patient remains on IV Zosyn. Cardiology, pulmonary, infectious disease and surgical services are all following. Patient denies chest pain or shortness of breath. Patient denies nausea vomiting or diarrhea. Patient denies any urinary burning or frequency On 01/25/2025 patient was seen and examined on the medical floor she is alert and oriented x 3 in no apparent distress she is complaining of urinary retention otherwise she denies any complaints there is no fever or chills no headache or dizziness no chest pain no shortness of breath no cough no nausea or vomiting no abdominal pain no diarrhea no burning with urination no frequency or urgency and no hematuria. At this time Flomax was added to her medication regimen, she will be discharged to home today or tomorrow when she is able to urinate. On 01/26/2025 patient is alert and oriented x 3. Patient has been cleared for discharge from cardiology standpoint patient will be DC'd on Augmentin for 7 days. Patient has been able to urinate. Patient denies chest pain or shortness of breath. Patient denies nausea vomiting or diarrhea. Patient denies any urinary burning or frequency. Current vital signs temp 98.8, heart rate 93, respiratory rate 16, blood pressure 152/78 with a pulse ox of 95% on room air Patient Condition at Discharge: Stable Plan - Discharge Summary New Discharge Prescriptions: New Acetaminophen Tab [Tylenol Tab] 1,000 mg PO Q6HR PRN #30 tablet PRN Reason: Pain Tamsulosin [Flomax] 0.4 mg PO PC-SUPPER 30 Days #30 cap Simethicone [Gas-X] 125 mg PO AC-TID PRN #20 capsule PRN Reason: Pain Amoxic-Pot Clav 500-125 mg [Augmentin 500-125 mg] 1 tab PO Q12HR 7 Days #14 tab Metoprolol Tartrate [Lopressor] 25 mg PO BID 30 Days #60 tab Continue Letrozole [Femara] 2.5 mg PO HS Baclofen [Lioresal] 10 mg PO BID lisinopriL [Zestril] 10 mg PO HS Ibuprofen [Motrin] 800 mg PO BID Famotidine [Pepcid] 40 mg PO HS Cholecalciferol [Vitamin D3 (25 Mcg = 1000 Iu)] 25 mcg PO DAILY Multivit with Calcium,Iron,Min [Women's Multivitamin] 1 tab PO DAILY Discharge Medication List Baclofen [Lioresal] 10 mg PO BID 05/09/17 [History] Letrozole [Femara] 2.5 mg PO HS 05/09/17 [History] lisinopriL [Zestril] 10 mg PO HS 11/08/17 [History] Cholecalciferol [Vitamin D3 (25 Mcg = 1000 Iu)] 25 mcg PO DAILY 01/27/22 [History] Ibuprofen [Motrin] 800 mg PO BID 01/27/22 [History] Famotidine [Pepcid] 40 mg PO HS 06/13/23 [History] Multivit with Calcium,Iron,Min [Women's Multivitamin] 1 tab PO DAILY 01/22/25 [History] Acetaminophen Tab [Tylenol Tab] 1,000 mg PO Q6HR PRN #30 tablet 01/26/25 [Rx] Amoxic-Pot Clav 500-125 mg [Augmentin 500-125 mg] 1 tab PO Q12HR 7 Days #14 tab 01/26/25 [Rx] Metoprolol Tartrate [Lopressor] 25 mg PO BID 30 Days #60 tab 01/26/25 [Rx] Simethicone [Gas-X] 125 mg PO AC-TID PRN #20 capsule 01/26/25 [Rx] Tamsulosin [Flomax] 0.4 mg PO PC-SUPPER 30 Days #30 cap 01/26/25 [Rx] Follow up Appointment(s)/Referral(s): Ayaka Friedman MD [Primary Care Provider] - 1-2 days Sisi Godinez MD [STAFF PHYSICIAN] - [facility]/28/25 6[facility]00 pm [facility] 8 [facility] Patient Instructions/Handouts: Low Fat Diet (DC), Laparoscopic Cholecystectomy (DC) Activity/Diet/Wound Care/Special Instructions: TELEHEALTH - DR WILL CALL YOU BETWEEN 9 am to 8 pm NO LONG DRIVES OR AIRPLANE RIDES OVER 60 MINUTES FOR THE NEXT 2 WEEKS, 02/07/2025 DUE TO HIGH RISK OF PULMONARY EMBOLISM/DVTs May drive 01/27/2025 No lifting over 10 pounds in 2 weeks until 02/07/2025 May shower. No bath tub soaks for two weeks until 02/07/2025 Diet as tolerated. Use Tylenol, simethicone and ibuprofen or Aleve scheduled for the next 24-48 hours for best pain relief. Use ice along incisions for today to prevent swelling. Discharge/Stand Alone Forms: Community Resources, Help In The Home, Personal Pharmacy Services Representative Discharge Disposition: HOME SELF-CARE
[2025-01-26 10:04] LABS: Basophils # (A) 0.04 X 10*3/uL (0.00-0.10); Basophils % (A) 0.4 %; Eosinophils # (A) 0.39 X 10*3/uL (0.04-0.35); Eosinophils % (A) 3.8 %; HCT 27.4 % (37.2-46.3); HGB 8.9 g/dL (12.0-15.0); Lymphocytes # (A) 1.36 X 10*3/uL (0.90-5.00); Lymphocytes % (A) 13.4 %; MCH 30.9 pg (27.0-32.0); MCHC 32.5 g/dL (32.0-37.0); MCV 95.1 FL (80.0-97.0); Monocytes # (A) 0.89 X 10*3/uL (0.20-1.00); Monocytes % (A) 8.8 %; NRBC Per 100 WBC 0 X 10*3/uL (0.00-0.01); Neutrophils # (A) 7.38 X 10*3/uL (1.80-7.70); Neutrophils % (A) 72.5 %; Platelet Count 243 X 10*3/uL (140-440); RBC 2.88 X 10*6/uL (4.10-5.20); RDW 12.6 % (11.5-14.5); WBC 10.17 X 10*3/uL (4.50-10.00)
[2025-01-26 10:25] LABS: BUN/Creat Ratio 22.12 Ratio (12.00-20.00); Blood Urea Nitrogen 17.7 mg/dL (9.0-27.0); Glucose 116 mg/dL (70-110)
[2025-01-26 10:26] LABS: ALT 24 U/L (8-44); AST 26 U/L (13-35); Albumin 3.4 g/dL (3.8-4.9); Albumin/Globulin Ratio 1.55 Ratio (1.60-3.17); Alkaline Phosphatase 61 U/L (41-126); Calcium 8.8 mg/dL (8.7-10.3); Carbon Dioxide 22.6 mmol/L (21.6-31.8); Chloride 111 mmol/L (96-109); Globulin 2.2 g/dL (1.6-3.3); Potassium 3.3 mmol/L (3.5-5.5); Sodium 144 mmol/L (135-145); Total Bilirubin 0.4 mg/dL (0.3-1.2); Total Protein 5.6 g/dL (6.2-8.2)
--- NOTE | 2025-01-26 12:33 | P.PN ---
Subjective Progress Note Date: 01/24/25 Principal diagnosis: Reason for follow-up is acute cholecystitis/pneumonia Patient is a 74-year-old female with a past medical history significant for diabetes mellitus hypertension reflux right breast cancer as well as ovarian cancer presenting to the hospital for evaluation of right upper quadrant and right lower chest pain, patient diagnosed with acute cholecystitis and concern for possible pneumonia. On today's evaluation that is 01/24/2025, patient has been afebrile, patient is breathing comfortably and is currently on room air, patient denies having any chest pain and cough, patient denies nausea vomiting or diarrhea and abdominal pain is currently controlled. Patient white count is down to 19.78 creatinine 0.9 Objective - Vital Signs Vital signs: Vital Signs Temp 98.6 F 01/24/25 07:53 Pulse 94 01/24/25 07:53 Resp 17 01/24/25 07:53 BP 132/75 01/24/25 07:53 Pulse Ox 96 01/24/25 07:53 FiO2 Intake & Output 01/23/25 01/24/25 01/24/25 18:59 06:59 18:59 Other: Voiding Method Toilet Toilet Toilet # Voids 3 1 - Exam GENERAL DESCRIPTION: An elderly male lying in bed in no distress RESPIRATORY SYSTEM: Unlabored breathing , decreased breath sounds at bases HEART: S1 S2 regular rate and rhythm , ABDOMEN: Soft , no tenderness EXTREMITIES: No edema feet - Labs CBC & Chem 7: 01/26/25 06:04 01/26/25 06:04 Labs: Abnormal Lab Results - Last 24 Hours (Table) 01/22/25 01/24/25 01/24/25 Range/Units 17:23 04:48 04:48 WBC 19.78 H (4.50-10.00) X 10*3/uL RBC 3.19 L (4.10-5.20) X 10*6/uL Hgb 10.0 L (12.0-15.0) g/dL Hct 31.2 L (37.2-46.3) % MCV 97.8 H (80.0-97.0) FL Immature Gran # 0.18 H (0.00-0.04) X 10*3/uL Neutrophils # 17.37 H (1.80-7.70) X 10*3/uL Carbon Dioxide 20.9 L (21.6-31.8) mmol/L Anion Gap 13.10 H (4.00-12.00) mmol/L BUN/Creatinine Ratio 20.89 H (12.00-20.00) Ratio Total Protein 5.9 L (6.2-8.2) g/dL Albumin 3.4 L (3.8-4.9) g/dL Albumin/Globulin Ratio 1.36 L (1.60-3.17) Ratio Procalcitonin 2.32 H (0.02-0.50) ng/mL Microbiology - Last 24 Hours (Table) 01/22/25 17:23 Blood Culture - Preliminary Blood Assessment and Plan (1) Sepsis Current Visit: Yes Status: Acute Code(s): A41.9 - SEPSIS, UNSPECIFIED ORGANISM SNOMED Code(s): 20982372 (2) Cholecystitis Current Visit: Yes Status: Acute Code(s): K81.9 - CHOLECYSTITIS, UNSPECIFIED SNOMED Code(s): 60023286 (3) Pneumonia Current Visit: Yes Status: Acute Code(s): J18.9 - PNEUMONIA, UNSPECIFIED ORGANISM SNOMED Code(s): 280766722 Plan: 1patient presented to hospital with sepsis in this patient who did have significant elevated white count tachycardia low-grade fever meeting criteria for SIRS/sepsis source is likely right lower lobe pneumonia and concerning for cholecystitis on the basis of the CT findings 2-patient cultures currently pending white count is trending down to continue with Zosyn and monitor clinical course closely Dictation was produced using [email or web address] dictation software. please excuse any grammatical, word or spelling errors. Time with Patient: Less than 30
--- NOTE | 2025-01-26 12:34 | P.PN ---
Subjective Progress Note Date: 01/25/25 Principal diagnosis: Reason for follow-up is acute cholecystitis/pneumonia Patient is a 74-year-old female with a past medical history significant for diabetes mellitus hypertension reflux right breast cancer as well as ovarian cancer presenting to the hospital for evaluation of right upper quadrant and right lower chest pain, patient diagnosed with acute cholecystitis and concern for possible pneumonia.Patient is status post laparoscopic lysis of adhesion and cholecystectomy completed on 01/24/2025 On today's evaluation that is 01/25/2025, Patient is afebrile this morning patient denies having any chest pain shortness of breath, occasional cough, the patient is currently on room air, patient denies any diarrhea no nausea no vomiting, abdominal pain is currently controlled. Patient white count is down to 12.41, creatinine 0.8 Objective - Vital Signs Vital signs: Vital Signs Temp 98.5 F 01/25/25 07:42 Pulse 79 01/25/25 08:00 Resp 19 01/25/25 08:00 BP 137/64 01/25/25 07:42 Pulse Ox 96 01/25/25 07:42 FiO2 Intake & Output 01/24/25 01/25/25 01/25/25 18:59 06:59 18:59 Intake Total 700 Output Total 5 470 Balance 695 -470 Intake: IV 700 Output: Urine 470 Estimated Blood Loss 5 Other: Voiding Method Toilet Toilet Toilet Diaper Diaper # Voids 3 250 - Exam GENERAL DESCRIPTION: An elderly male lying in bed in no distress RESPIRATORY SYSTEM: Unlabored breathing , decreased breath sounds at bases HEART: S1 S2 regular rate and rhythm , ABDOMEN: Soft , no tenderness EXTREMITIES: No edema feet - Labs CBC & Chem 7: 01/26/25 06:04 01/26/25 06:04 Labs: Abnormal Lab Results - Last 24 Hours (Table) 01/25/25 01/25/25 Range/Units 04:31 04:31 WBC 12.41 H (4.50-10.00) X 10*3/uL RBC 2.86 L (4.10-5.20) X 10*6/uL Hgb 8.7 L (12.0-15.0) g/dL Hct 27.8 L (37.2-46.3) % MCV 97.2 H (80.0-97.0) FL MCHC 31.3 L (32.0-37.0) g/dL Immature Gran # 0.05 H (0.00-0.04) X 10*3/uL Neutrophils # 10.32 H (1.80-7.70) X 10*3/uL Potassium 3.4 L (3.5-5.5) mmol/L Carbon Dioxide 20.4 L (21.6-31.8) mmol/L Anion Gap 12.60 H (4.00-12.00) mmol/L BUN/Creatinine Ratio 28.25 H (12.00-20.00) Ratio Total Protein 5.4 L (6.2-8.2) g/dL Albumin 3.3 L (3.8-4.9) g/dL Albumin/Globulin Ratio 1.57 L (1.60-3.17) Ratio Microbiology - Last 24 Hours (Table) 01/22/25 17:23 Blood Culture - Preliminary Blood Assessment and Plan (1) Sepsis Current Visit: Yes Status: Acute Code(s): A41.9 - SEPSIS, UNSPECIFIED ORGANISM SNOMED Code(s): 56809483 (2) Cholecystitis Current Visit: Yes Status: Acute Code(s): K81.9 - CHOLECYSTITIS, UNSPECIFIED SNOMED Code(s): 78341330 (3) Pneumonia Current Visit: Yes Status: Acute Code(s): J18.9 - PNEUMONIA, UNSPECIFIED ORGANISM SNOMED Code(s): 627668527 Plan: 1patient presented to hospital with sepsis in this patient who did have significant elevated white count tachycardia low-grade fever meeting criteria for SIRS/sepsis source is likely right lower lobe pneumonia and concerning for cholecystitis on the basis of the CT findings which has been confirmed on the operative findings status post cholecystectomy 2-patient is afebrile patient white count is trending down we will treat with Zosyn and hopefully finishing therapy with oral antibiotics Dictation was produced using [employer] dictation software. please excuse any grammatical, word or spelling errors. Time with Patient: Less than 30
== END 2025-01-26 13:58 | disposition home or self-care (01) | DRG 853 ==
LOC: EC 14:49 → 1SOBS 20:06 → OBSVTOIN 20:07 → 1SOBS 01-23 01:49 → 4SSUR 01-23 15:29
PROVIDERS: ADMIT Internal Medicine; ATTEND Internal Medicine
PROC: 0DNW4ZZ Release Peritoneum, Percutaneous Endoscopic Approach (ICD-10-PCS; 2025-01-24)
PROC: 8E0W4CZ Robotic Assisted Procedure of Trunk Region, Percutaneous Endoscopic Approach (ICD-10-PCS; 2025-01-24)
PROC: 0FT44ZZ Resection of Gallbladder, Percutaneous Endoscopic Approach (ICD-10-PCS; principal; 2025-01-24 09:15)
DX: A41.9 Sepsis, unspecified organism (principal); J18.1 Lobar pneumonia, unspecified organism; I11.9 Hypertensive heart disease without heart failure; K80.12 Calculus of gallbladder with acute and chronic cholecystitis without obstruction; K21.9 Gastro-esophageal reflux disease without esophagitis; K44.9 Diaphragmatic hernia without obstruction or gangrene; R33.9 Retention of urine, unspecified; K66.0 Peritoneal adhesions (postprocedural) (postinfection); K82.8 Other specified diseases of gallbladder; Z90.13 Acquired absence of bilateral breasts and nipples; Z85.3 Personal history of malignant neoplasm of breast; Z85.43 Personal history of malignant neoplasm of ovary; Z91.011 Allergy to milk products; Z88.8 Allergy status to other drugs, medicaments and biological substances; Z91.018 Allergy to other foods; Z91.048 Other nonmedicinal substance allergy status; Z79.899 Other long term (current) drug therapy; Z90.710 Acquired absence of both cervix and uterus; Z92.21 Personal history of antineoplastic chemotherapy
CPT/HCPCS: 36415; 71046; 71260; 74177; 76705; 80053; 80061; 81001; 82150; 83036; 83605; 83690; 84145; 84443; 85025; 87040; 87502; 93005; 93306; 96361; 96365; 96366; 96367; 96375; 99285

== ENCOUNTER → 2025-03-27 | Outpatient (CLI) | payer MEDICARE, OTHER ==
[2025-03-27 14:02] LABS: African American GFR (CKD) 66 (>60 ml/min/1.73 sqM); Blood Urea Nitrogen 36 mg/dL (7-17); Non-African American GFR(CKD) 57 (>60 ml/min/1.73 sqM)
--- NOTE | 2025-03-27 15:02 | CT ---
EXAMINATION TYPE: CT angio chest DATE OF EXAM: 03/27/2025 COMPARISON: None CLINICAL INDICATION: Female, 74 years old with history of SHORTNESS OF BREATH R06.02; PH[facility], MARK TECHNIQUE: CTA scan of the thorax is performed with IV Contrast, patient injected with 80 ml mL of Isovue 370, p ulmonary embolism protocol. MIP images are created and reviewed. CT DLP: 201.[address] CTDI: mGy Automated exposure control for dose reduction was used. FINDINGS: There are no filling defects within the pulmonary arteries to suggest pulmonary embolism. There are scattered areas of tree-in-bud densities, groundglass density and multiple focal areas of p artially consolidative density in the left lung likely infectious in nature and short-term follow-up to resolution is recommended. There is no pleural effusion or pneumothorax. There is no mediastinal, hilar or axillary adenopathy. Limited scanning through the upper abdomen reveals no gross abnormality. There are no focal osseous lesions. IMPRESSION: 1. No evidence of pulmonary embolism. 2. Multiple scattered bilateral lung nodules and densities as described above. The findings suggest a n inflammatory process and short-term follow-up to resolution is recommended to exclude the possibili ty of malignancy which is thought to be less likely. [facility], , 03/27/2025 3:00 PM
== END | disposition home or self-care (01) ==
LOC: RADCTMAIN 13:22
PROVIDERS: ATTEND Internal Medicine Hematology & Oncology
DX: C50.411 Malignant neoplasm of upper-outer quadrant of right female breast (principal); C23 Malignant neoplasm of gallbladder; C56.2 Malignant neoplasm of left ovary; G62.1 Alcoholic polyneuropathy; R91.8 Other nonspecific abnormal finding of lung field
CPT/HCPCS: 82565; 84520; 71275; 36415; Q9967